=== PATIENT | female | born 1950 | race Caucasian/White ===

== ENCOUNTER → 2018-04-19 08:06 | Outpatient (CLI) | payer MEDICARE, OTHER, SELFPAY ==
--- NOTE | 2018-04-19 | DI.MG.S_ITS ---
BILATERAL DIGITAL SCREENING MAMMOGRAM 3D/2D WITH CAD: 04/19/2018 CLINICAL: Routine screening. Comparison is made to exams dated: 04/10/2017 mammogram, 04/01/2016 mammogram, and 03/31/2015 mammogram - [facility]. There are scattered fibroglandular elements in both breasts. Current study was also evaluated with a Computer Aided Detection (CAD) system. No significant masses, calcifications, or other findings are seen in either breast. There has been no significant interval change. IMPRESSION: NEGATIVE There is no mammographic evidence of malignancy. A 1 year screening mammogram is recommended. This exam was interpreted at Station ID: [id number]. NOTE: For mammograms, a report in lay terms will be sent to the patient. Approximately 15% of breast malignancies will not be visualized mammographically. In the management of a palpable breast mass, a negative mammogram must not discourage biopsy of a clinically suspicious lesion. Electronically Signed By: Pipo ho/mary:04/19/2018 10:27:58 letter sent: Normal Exam ACR BI-RADS Category 1: Negative 3341F
== END ==
PROVIDERS: PCP Physician Assistant; Visit Provider Physician Assistant
DX: Z12.31 Encounter for screening mammogram for malignant neoplasm of breast (principal)
CPT/HCPCS: 77063; 77067

== ENCOUNTER → 2018-04-20 07:29 | Outpatient (CLI) | payer MEDICARE, OTHER, SELFPAY ==
[2018-04-20 09:44] LABS: Creatinine Urine Random 147.3 mg/dL
[2018-04-20 09:49] LABS: Microalbumin Urine Random 1.4 mg/dL (0-1.6)
[2018-04-20 10:00] LABS: Alanine Aminotransferase 74 IU/L (9-52); Albumin 4.5 g/dL (3.5-5.0); Albumin Globulin Ratio 1.5 (1.0-2.8); Alkaline Phosphatase 48 U/L (38-126); Aspartate Aminotransferase 71 IU/L (14-36); BUN Creatinine Ratio 24.3 (6-22); Bilirubin Total 0.6 mg/dL (0.2-1.3); Blood Urea Nitrogen 17 mg/dL (7-17); Calcium 9.7 mg/dL (8.4-10.2); Carbon Dioxide 26 mmol/L (22-32); Chloride 103 mmol/L (98-107); Cholesterol 220 mg/dL (140-199); Estimated Glomerular Filt Rate > 60.0 mL/min (>60); Glucose 114 mg/dL (80-110); HDL Cholesterol 40 mg/dL (40-60); HEMOLYSIS < 15 (0-50); LDL Cholesterol Calculated 142 mg/dL (<100); Potassium 4.2 mmol/L (3.4-5.1); Sodium 142 mmol/L (137-145); Total Protein 7.5 g/dL (6.3-8.2); Triglycerides 188 mg/dL (35-150)
[2018-04-20 10:11] LABS: Free T4, Direct Thyroxine 1.09 ng/dL (0.78-2.19)
[2018-04-20 10:25] LABS: Thyroid Stimulating Hormone 2.17 uIU/mL (0.47-4.68)
[2018-04-20 11:37] LABS: Microalbumi Creatinin Ratio Ur 9.5 ug/mg CR (<30)
== END ==
PROVIDERS: PCP Physician Assistant; Visit Provider Physician Assistant
DX: E03.9 Hypothyroidism, unspecified (principal); E78.5 Hyperlipidemia, unspecified; I10 Essential (primary) hypertension
CPT/HCPCS: 36415; 80053; 80061; 82043; 82570; 84439; 84443

== ENCOUNTER → 2018-05-24 07:29 | Outpatient (CLI) | payer MEDICARE, OTHER, SELFPAY ==
[2018-05-24 08:27] LABS: BUN Creatinine Ratio 27.1 (6-22); Blood Urea Nitrogen 19 mg/dL (7-17); Calcium 9.8 mg/dL (8.4-10.2); Carbon Dioxide 28 mmol/L (22-32); Chloride 103 mmol/L (98-107); Estimated Glomerular Filt Rate > 60.0 mL/min (>60); Glucose 150 mg/dL (80-110); HEMOLYSIS < 15 (0-50); Potassium 3.8 mmol/L (3.4-5.1); Sodium 142 mmol/L (137-145)
== END ==
PROVIDERS: PCP Physician Assistant; Visit Provider Physician Assistant
DX: Z01.818 Encounter for other preprocedural examination (principal); Z12.11 Encounter for screening for malignant neoplasm of colon
CPT/HCPCS: 36415; 80048; 93005

== ENCOUNTER → 2018-06-07 08:20 | Outpatient (CLI) | payer MEDICARE, OTHER, SELFPAY ==
[2018-06-11 14:43] LABS: Fecal Immunochemical Test NOT DETECTED
== END ==
PROVIDERS: PCP Physician Assistant; Visit Provider Physician Assistant
DX: Z12.11 Encounter for screening for malignant neoplasm of colon (principal); Z01.818 Encounter for other preprocedural examination
CPT/HCPCS: 82274

== ENCOUNTER → 2018-08-10 13:27 | Outpatient (CLI) | payer MEDICARE, OTHER, SELFPAY ==
--- NOTE | 2018-08-10 13:30 | DI.RAD.S_ITS ---
PROCEDURE: XR SACRUM COCCYX MIN 2V INDICATIONS: pain from fall TECHNIQUE: 3 views of the sacrum and coccyx acquired. COMPARISON: [facility], , PELVIC COMPLETE, 12/16/2015, 7:18. FINDINGS: Bones: No fractures or dislocations. No suspicious bony lesions. Soft tissues: Visualized bowel gas pattern is normal. No suspicious soft tissue densities are seen peripherally but overlying the pelvis centered to the left of midline there is a region of amorphous calcifications, potentially within a uterine fibroid.. IMPRESSION: No trauma found. Amorphous calcifications are clustered just to the left of midline at the lobe pelvis on the frontal projection, potentially calcifications within a uterine fibroid in this area. Noncontrast CT scanning could differentiate between fibroid calcification, bladder lesion, or adjacent soft tissue abnormality with internal calcifications. A prior pelvic ultrasound from November 2015 does not describe a uterine fibroid with internal calcifications. Dictated by: Masood Ko M.D. on 08/10/2018 at 14:06 Approved by: Masood Ko M.D. on 08/10/2018 at 14:09
--- NOTE | 2018-08-10 13:30 | DI.RAD.S_ITS ---
PROCEDURE: XR ANKLE LT MIN 3V INDICATIONS: pain in left ankle from fall TECHNIQUE: 3 views of the ankle were acquired. COMPARISON: None. FINDINGS: Bones: No fractures or dislocations. Ankle mortise is normally aligned. No suspicious bony lesions. Soft tissues: No tibiotalar joint effusion. Achilles tendon appears normal. IMPRESSION: No trauma found. Dictated by: Masood Ko M.D. on 08/10/2018 at 14:09 Approved by: Masood Ko M.D. on 08/10/2018 at 14:10
== END ==
PROVIDERS: PCP Physician Assistant; Visit Provider Nurse Practitioner Family
DX: M25.572 Pain in left ankle and joints of left foot (principal); M53.3 Sacrococcygeal disorders, not elsewhere classified
CPT/HCPCS: 72220; 73610

== ENCOUNTER → 2018-08-22 14:59 | Outpatient (CLI) | payer MEDICARE, OTHER, SELFPAY | PROVIDERS: PCP Physician Assistant; Visit Provider Surgery | DX: L02.213 Cutaneous abscess of chest wall (principal) | CPT/HCPCS: 87070; 87075; 87205 ==

== ENCOUNTER → 2018-12-14 07:34 | Outpatient (CLI) | payer MEDICARE, OTHER, SELFPAY ==
[2018-12-14 08:19] LABS: Hemoglobin A1C% w Est Avg Glu 6.1 % (4.0-6.0)
[2018-12-14 08:53] LABS: Alanine Aminotransferase 77 IU/L (9-52); Albumin 4.6 g/dL (3.5-5.0); Albumin Globulin Ratio 1.5 (1.0-2.8); Alkaline Phosphatase 51 U/L (38-126); Aspartate Aminotransferase 74 IU/L (14-36); BUN Creatinine Ratio 25.7 (6-22); Bilirubin Total 0.8 mg/dL (0.2-1.3); Blood Urea Nitrogen 18 mg/dL (7-17); Calcium 9.7 mg/dL (8.4-10.2); Carbon Dioxide 26 mmol/L (22-32); Chloride 101 mmol/L (98-107); Cholesterol 220 mg/dL (140-199); Estimated Glomerular Filt Rate > 60.0 mL/min (>60); Globulin 3.1 g/dL (1.7-4.1); Glucose 118 mg/dL (80-110); HDL Cholesterol 36 mg/dL (40-60); HEMOLYSIS < 15 (0-50); LDL Cholesterol Calculated 146 mg/dL (<100); Potassium 3.8 mmol/L (3.4-5.1); Sodium 139 mmol/L (137-145); Total Protein 7.7 g/dL (6.3-8.2); Triglycerides 188 mg/dL (35-150)
[2018-12-14 09:19] LABS: Thyroid Stimulating Hormone 2.21 uIU/mL (0.47-4.68)
[2018-12-14 09:58] LABS: Creatinine Urine Random 160.8 mg/dL
[2018-12-14 10:02] LABS: Microalbumi Creatinin Ratio Ur 9.3 ug/mg CR (<30); Microalbumin Urine Random 1.5 mg/dL (0-1.6)
== END ==
PROVIDERS: PCP Physician Assistant; Visit Provider Physician Assistant
DX: E03.9 Hypothyroidism, unspecified (principal); E78.5 Hyperlipidemia, unspecified; I10 Essential (primary) hypertension; R73.01 Impaired fasting glucose
CPT/HCPCS: 36415; 80053; 80061; 82043; 82570; 83036; 84443

== ENCOUNTER → 2019-04-29 09:40 | Outpatient (CLI) | payer MEDICARE, OTHER, SELFPAY ==
--- NOTE | 2019-04-29 | DI.MG.S_ITS ---
BILATERAL DIGITAL SCREENING MAMMOGRAM 3D/2D WITH CAD: 04/29/2019 CLINICAL: Routine screening. Comparison is made to exams dated: 04/19/2018 mammogram, 04/10/2017 mammogram, and 04/01/2016 mammogram - [facility]. There are scattered fibroglandular elements in both breasts. Current study was also evaluated with a Computer Aided Detection (CAD) system. There are stable benign calcifications in both breasts. No significant masses, calcifications, or other findings are seen in either breast. There has been no significant interval change. IMPRESSION: There is no mammographic evidence of malignancy. A 1 year screening mammogram is recommended. This exam was interpreted at Station ID: [id number]. NOTE: For mammograms, a report in lay terms will be sent to the patient. Approximately 15% of breast malignancies will not be visualized mammographically. In the management of a palpable breast mass, a negative mammogram must not discourage biopsy of a clinically suspicious lesion. Electronically Signed By: Mykel silva/mary:04/29/2019 16:27:29 letter sent: Normal Exam ACR BI-RADS Category 2: Benign Finding(s) 3342F
== END ==
PROVIDERS: PCP Physician Assistant; Visit Provider Physician Assistant
DX: Z12.31 Encounter for screening mammogram for malignant neoplasm of breast (principal)
CPT/HCPCS: 77063; 77067

== ENCOUNTER → 2019-05-16 07:17 | Outpatient (CLI) | payer MEDICARE, OTHER, SELFPAY ==
[2019-05-16 08:38] LABS: Creatinine Urine Random 192.1 mg/dL
[2019-05-16 08:42] LABS: Microalbumin Urine Random 2.7 mg/dL (0-1.6)
[2019-05-16 08:57] LABS: Alanine Aminotransferase 74 IU/L (9-52); Albumin 4.5 g/dL (3.5-5.0); Albumin Globulin Ratio 1.5 (1.0-2.8); Alkaline Phosphatase 55 U/L (38-126); Aspartate Aminotransferase 74 IU/L (14-36); BUN Creatinine Ratio 18.6 (6-22); Bilirubin Total 0.6 mg/dL (0.2-1.3); Blood Urea Nitrogen 13 mg/dL (7-17); Calcium 9.7 mg/dL (8.4-10.2); Carbon Dioxide 27 mmol/L (22-32); Chloride 102 mmol/L (98-107); Cholesterol 218 mg/dL (140-199); Estimated Glomerular Filt Rate > 60.0 mL/min (>60); Glucose 124 mg/dL (80-110); HDL Cholesterol 37 mg/dL (40-60); HEMOLYSIS < 15 (0-50); LDL Cholesterol Calculated 143 mg/dL (<100); Potassium 3.8 mmol/L (3.4-5.1); Sodium 141 mmol/L (137-145); Total Protein 7.5 g/dL (6.3-8.2); Triglycerides 188 mg/dL (35-150)
[2019-05-16 09:57] LABS: Thyroid Stimulating Hormone 2.67 uIU/mL (0.47-4.68)
== END ==
PROVIDERS: PCP Physician Assistant; Visit Provider Physician Assistant
DX: E03.9 Hypothyroidism, unspecified (principal); E78.2 Mixed hyperlipidemia; I10 Essential (primary) hypertension; R73.01 Impaired fasting glucose
CPT/HCPCS: 36415; 80053; 80061; 82043; 82570; 83036; 84443

== ENCOUNTER → 2019-06-06 09:27 | Outpatient (CLI) | payer MEDICARE, OTHER, SELFPAY ==
--- NOTE | 2019-06-06 09:28 | DI.RAD.S_ITS ---
This blank DEXA report has been sent in error by the PACS system. The correct and complete report will be forthcoming in 1-2 days. Thank you for your patience and understanding. Dictated by: Samir Carranza M.D. on 06/06/2019 at 11:43 Approved by: Masood Ko M.D. on 10/08/2019 at 9:36
== END ==
PROVIDERS: PCP Physician Assistant; Visit Provider Physician Assistant
DX: M85.851 Other specified disorders of bone density and structure, right thigh (principal); Z78.0 Asymptomatic menopausal state; E07.9 Disorder of thyroid, unspecified; Z82.62 Family history of osteoporosis
CPT/HCPCS: 77080

== ENCOUNTER → 2019-06-10 09:55 | Outpatient (CLI) | payer MEDICARE, OTHER, SELFPAY ==
[2019-06-12 15:27] LABS: Fecal Immunochemical Test NOT DETECTED (NOT DETECTED)
== END ==
PROVIDERS: PCP Physician Assistant; Visit Provider Physician Assistant
DX: Z12.11 Encounter for screening for malignant neoplasm of colon (principal)
CPT/HCPCS: 82274

== ENCOUNTER → 2019-09-30 07:08 | Outpatient (CLI) | payer MEDICARE, OTHER, SELFPAY ==
[2019-09-30 08:25] LABS: Alanine Aminotransferase 69 IU/L (<35); Albumin 4.7 g/dL (3.5-5.0); Albumin Globulin Ratio 1.6 (1.0-2.8); Alkaline Phosphatase 48 U/L (38-126); Aspartate Aminotransferase 64 IU/L (14-36); Bilirubin Total 0.8 mg/dL (0.2-1.3); Blood Urea Nitrogen 21 mg/dL (7-17); Calcium 10.1 mg/dL (8.4-10.2); Carbon Dioxide 29 mmol/L (22-32); Chloride 101 mmol/L (98-107); Estimated Glomerular Filt Rate > 60.0 mL/min (>60); Globulin 2.9 g/dL (1.7-4.1); Glucose 136 mg/dL (80-110); HEMOLYSIS < 15 (0-50); Potassium 3.7 mmol/L (3.4-5.1); Sodium 139 mmol/L (137-145); Total Protein 7.6 g/dL (6.3-8.2)
[2019-09-30 08:55] LABS: Thyroid Stimulating Hormone 2.42 uIU/mL (0.47-4.68)
[2019-09-30 10:43] LABS: Hemoglobin A1C% w Est Avg Glu 6.1 % (4.0-6.0)
== END ==
PROVIDERS: PCP Physician Assistant; Visit Provider Physician Assistant
DX: E03.9 Hypothyroidism, unspecified (principal); I10 Essential (primary) hypertension; R73.01 Impaired fasting glucose
CPT/HCPCS: 36415; 80053; 83036; 84443

== ENCOUNTER → 2019-11-05 08:17 | Outpatient (CLI) | payer OTHER, SELFPAY ==
[2019-11-05 09:10] LABS: Hemoglobin A1C% w Est Avg Glu 6.2 % (4.0-6.0)
[2019-11-05 09:19] LABS: Alanine Aminotransferase 62 IU/L (<35); Albumin 4.6 g/dL (3.5-5.0); Albumin Globulin Ratio 1.7 (1.0-2.8); Alkaline Phosphatase 55 U/L (38-126); Aspartate Aminotransferase 57 IU/L (14-36); BUN Creatinine Ratio 27.1 (6-22); Bilirubin Total 0.8 mg/dL (0.2-1.3); Blood Urea Nitrogen 19 mg/dL (7-17); Calcium 9.8 mg/dL (8.4-10.2); Carbon Dioxide 27 mmol/L (22-32); Chloride 101 mmol/L (98-107); Cholesterol 190 mg/dL (140-199); Estimated Glomerular Filt Rate > 60.0 mL/min (>60); Globulin 2.7 g/dL (1.7-4.1); Glucose 128 mg/dL (80-110); HDL Cholesterol 33 mg/dL (40-60); HEMOLYSIS < 15 (0-50); LDL Cholesterol Calculated 118 mg/dL (<100); Potassium 3.9 mmol/L (3.4-5.1); Sodium 139 mmol/L (137-145); Total Protein 7.3 g/dL (6.3-8.2); Triglycerides 196 mg/dL (35-150)
[2019-11-05 09:53] LABS: Vitamin D 25 Hydroxy (D3) 47.4 ng/mL (30.0-100.0)
[2019-11-05 10:08] LABS: Thyroid Stimulating Hormone 1.75 uIU/mL (0.47-4.68)
[2019-11-05 10:30] LABS: Creatinine Urine Random 113.1 mg/dL
[2019-11-05 10:33] LABS: Microalbumi Creatinin Ratio Ur 9.7 ug/mg CR (<30); Microalbumin Urine Random 1.1 mg/dL (0-1.6)
== END ==
PROVIDERS: PCP Physician Assistant; Visit Provider Physician Assistant
DX: E03.9 Hypothyroidism, unspecified (principal); E78.5 Hyperlipidemia, unspecified; I10 Essential (primary) hypertension; M81.0 Age-related osteoporosis without current pathological fracture; R73.03 Prediabetes
CPT/HCPCS: 36415; 80053; 80061; 82043; 82306; 82570; 83036; 84443

== ENCOUNTER → 2020-05-19 08:04 | Outpatient (CLI) | payer OTHER, SELFPAY ==
[2020-05-19 09:22] LABS: Cholesterol 205 mg/dL (140-199); HDL Cholesterol 36 mg/dL (40-60); LDL Cholesterol Calculated 132 mg/dL (<100); Triglycerides 186 mg/dL (35-150)
== END ==
PROVIDERS: Physician Assistant; PCP Family Medicine; Referring Provider Family Medicine; Visit Provider Family Medicine
DX: E78.5 Hyperlipidemia, unspecified (principal)
CPT/HCPCS: 36415; 80061

== ENCOUNTER → 2020-05-27 08:06 | Outpatient (CLI) | payer OTHER, SELFPAY ==
[2020-05-27 08:25] LABS: Add Manual Diff / Slide Review NO; Basophils Absolute Auto 100 /uL (0-100); Basophils Percent Auto 0.9 % (0-2); Eosinophils Absolute Auto 200 /uL (0-450); Eosinophils Percent Auto 2.3 % (2-4); Hematocrit 41.5 % (36-46); Lymphocytes Absolute Auto 2100 /uL (1100-4500); Lymphocytes Percent Auto 29.9 % (25-40); Mean Corpuscular HGB Conc 33.8 % (30-36); Mean Corpuscular Hemoglobin 30.4 PG (26-34); Mean Corpuscular Volume 89.9 fL (80-100); Monocytes Absolute Auto 500 /uL (0-900); Monocytes Percent Auto 6.5 % (3-14); Neutrophils Absolute Auto 4200 /uL (1500-7000); Neutrophils Percent Auto 60.4 % (50-75); Platelet Count 281 X10^3/uL (150-400); Red Blood Cell Count 4.61 X10^6/uL (4.0-5.2); Red Cell Distribution Width 12.9 % (11.6-14.8)
[2020-05-27 08:35] LABS: Hemoglobin A1C% w Est Avg Glu 6.5 % (4.0-6.0)
[2020-05-27 09:19] LABS: Free T4, Direct Thyroxine 1.11 ng/dL (0.78-2.19)
== END ==
PROVIDERS: PCP Family Medicine; Referring Provider Family Medicine; Visit Provider Family Medicine
DX: R73.03 Prediabetes (principal)
CPT/HCPCS: 36415; 83036; 84439; 84443; 85025

== ENCOUNTER → 2020-06-17 08:17 | Outpatient (CLI) | payer OTHER, SELFPAY ==
--- NOTE | 2020-06-17 | DI.MG.S_ITS ---
BILATERAL DIGITAL SCREENING MAMMOGRAM 3D/2D WITH CAD: 06/17/2020 CLINICAL: Routine screening. Comparison is made to exams dated: 04/29/2019 mammogram, 04/19/2018 mammogram, and 04/10/2017 mammogram - [facility]. There are scattered fibroglandular elements in both breasts. Current study was also evaluated with a Computer Aided Detection (CAD) system. There are stable benign calcifications in both breasts. No significant masses, calcifications, or other findings are seen in either breast. There has been no significant interval change. IMPRESSION: There is no mammographic evidence of malignancy. A 1 year screening mammogram is recommended. This exam was interpreted at Station ID: [id number]. NOTE: For mammograms, a report in lay terms will be sent to the patient. Approximately 15% of breast malignancies will not be visualized mammographically. In the management of a palpable breast mass, a negative mammogram must not discourage biopsy of a clinically suspicious lesion. Electronically Signed By: Von Sharp M.D., jr/mary:06/17/2020 10:22:26 letter sent: Normal Exam ACR BI-RADS Category 2: Benign Finding(s) 3342F
[2020-06-17 10:05] LABS: Alanine Aminotransferase 57 IU/L (<35); Albumin 4.8 g/dL (3.5-5.0); Albumin Globulin Ratio 1.5 (1.0-2.8); Alkaline Phosphatase 56 U/L (38-126); Aspartate Aminotransferase 63 IU/L (14-36); BUN Creatinine Ratio 33.3 (6-22); Bilirubin Total 0.7 mg/dL (0.2-1.3); Blood Urea Nitrogen 21 mg/dL (7-17); Carbon Dioxide 27 mmol/L (22-32); Chloride 98 mmol/L (98-107); Estimated Glomerular Filt Rate > 60.0 mL/min (>60); Globulin 3.1 g/dL (1.7-4.1); Glucose 156 mg/dL (80-110); HEMOLYSIS 45 (0-50); Magnesium 2.1 mg/dL (1.6-2.3); Potassium 3.9 mmol/L (3.4-5.1); Sodium 136 mmol/L (137-145); Total Protein 7.9 g/dL (6.3-8.2)
== END ==
PROVIDERS: Internal Medicine Cardiovascular Disease; PCP Family Medicine; Referring Provider Family Medicine; Visit Provider Family Medicine
DX: Z12.31 Encounter for screening mammogram for malignant neoplasm of breast (principal); I10 Essential (primary) hypertension; I49.1 Atrial premature depolarization
CPT/HCPCS: 36415; 77063; 77067; 80053; 83735

== ENCOUNTER → 2020-06-19 15:52 | Outpatient (CLI) | payer OTHER, SELFPAY ==
--- NOTE | 2020-06-19 15:55 | DI.ECHO.S_ITS ---
[facility] +---------+ : : [address] : : : : [id number] : : : : Phone: [phone]---------+ Echocardiogram Report + + :Name: MAKSIM NGUYEN Study Date: 06/19/2020 Height: 64 in : :[facility] Location: [place] Weight: 173 lb : : Gender: Female BSA: 1.8 m2 : :: 1950 Age: 69 yrs BP: 133/80 mmHg: :Reason For Study: Mitral Valve - Annulus Repair/Replacement : :Ordering Physician: Adali : :Sophia Ferraro Performed By: Maksim Page : :Referring: ADALI FERRARO : + + Interpretation Summary The left ventricle is normal in size. The ejection fraction is estimated to be 60-65%. The right ventricle is normal in size and function. The posterior mitral valve leaflet is thickened and fixed consistent with prior mitral repair.MV mean P.4 mmHg No significant mitral valve stenosis. There is trace mitral regurgitation. The IVC is of normal diameter and collapses greater than 50% with a sniff. This suggests a low right atrial pressure of 3 mm Hg. Procedure: A two-dimensional transthoracic echocardiogram with color flow and Doppler was performed. The study quality was technically adequate. Comparison is made with the echocardiogram of 01/26/2015. The patient was in normal sinus rhythm during the exam. Left Ventricle: The left ventricle is normal in size. Proximal septal thickening is noted. There is no echo evidence for significant left ventricular outflow tract obstruction. There is no thrombus. The ejection fraction is estimated to be 60-65%. Septal motion is consistent with post- operative state. Diastolic function could not be accurately assessed due to confounding valvular disease. Right Ventricle: The right ventricle is normal in size and function. Atria: The left atrium is moderately dilated. Right atrial size is normal. There is no Doppler evidence for an interatrial shunt. Mitral Valve: The mitral valve chordae are thickened and/or calcified. The posterior mitral valve leaflet is thickened and fixed consistent with prior mitral repair. No significant mitral valve stenosis. There is trace mitral regurgitation. Aortic Valve: The aortic valve is trileaflet. The aortic valve opens well. The aortic valve is slightly calcified. There is no aortic valve stenosis. No aortic regurgitation is present. Tricuspid Valve: The tricuspid valve is normal in structure and function. The right ventricular systolic pressure is estimated to be at least 28 mmHg based on an estimated right atrial pressure of 3 mm Hg. There is trace tricuspid regurgitation. Pulmonic Valve: The pulmonic valve is not well visualized. Great Vessels: The aortic root is normal size. The ascending aorta is normal in size. The pulmonary is not well visualized. The IVC is of normal diameter and collapses greater than 50% with a sniff. This suggests a low right atrial pressure of 3 mm Hg. Pericardium/ Pleura There is no pericardial effusion. There is no pleural effusion. MMode/2D Measurements & Calculations LVIDd: 4.3 cm LVOT diam: 2.0 cm LVIDs: 2.6 cm Ao root diam: 3.3 cm FS: 39.9 % asc Aorta Diam: 3.3 cm IVSd: 1.0 cm LVPWd: 0.70 cm LV banegas. diameter/BSA (cm/m^2): 2.4 LV sys. diameter/BSA (cm/m^2): 1.4 LA A2 area: 25.3 cm2 RA long axis: 4.2 cm LA A4 area: 20.7 cm2 RA area: 12.1 cm2 LA length (vol): 5.6 cm RA vol: 29.6 ml LA vol: 79.2 ml RA : 16.1 ml/m2 LA vol index: 43.1 ml/m2 RVD1 (basal): 3.0 cm Doppler Measurements & Calculations Ao V2 max: 128.2 cm/sec LVOT Max Neville: 87.0 cm/sec Ao V2 mean: 90.6 cm/sec LV V1 max P.0 mmHg Ao max P.6 mmHg LV V1 VTI: 17.1 cm Ao mean P.5 mmHg ARIA(I,D): 2.3 cm2 Ao V2 VTI: 23.8 cm ARIA(V,D): 2.1 cm2 sev ratio: 0.72 ARIA indexed to BSA (cm^2/m^2): 1.2 Lat Peak E' Neville: 13.0 cm/sec TR max neville: 250.5 cm/sec MVA(VTI): 1.2 cm2 TR max P.1 mmHg PA V2 max: 86.3 cm/sec PA V2 mean: 64.9 cm/sec PA mean P.8 mmHg MV V2 mean: 84.4 cm/sec SV(LVOT): 54.1 ml MV mean P.4 mmHg MV V2 VTI: 44.2 cm Reading Physician:01:35 PM
== END ==
PROVIDERS: PCP Family Medicine; Referring Provider Internal Medicine Cardiovascular Disease; Visit Provider Internal Medicine Cardiovascular Disease
DX: I49.1 Atrial premature depolarization (principal); Z98.890 Other specified postprocedural states
CPT/HCPCS: 93306

== ENCOUNTER → 2020-09-24 07:43 | Outpatient (CLI) | payer OTHER, SELFPAY ==
[2020-09-24 08:43] LABS: Hemoglobin A1C% w Est Avg Glu 6.7 % (4.0-6.0)
[2020-09-24 08:46] LABS: Alanine Aminotransferase 42 IU/L (<35); Albumin 4.5 g/dL (3.5-5.0); Albumin Globulin Ratio 1.5 (1.0-2.8); Alkaline Phosphatase 47 U/L (38-126); Aspartate Aminotransferase 51 IU/L (14-36); BUN Creatinine Ratio 30.7 (6-22); Bilirubin Total 0.8 mg/dL (0.2-1.3); Blood Urea Nitrogen 23 mg/dL (7-17); Calcium 10.1 mg/dL (8.4-10.2); Carbon Dioxide 28 mmol/L (22-32); Chloride 101 mmol/L (98-107); Cholesterol 232 mg/dL (140-199); Estimated Glomerular Filt Rate > 60.0 mL/min (>60); Glucose 130 mg/dL (80-110); HDL Cholesterol 38 mg/dL (40-60); HEMOLYSIS < 15 (0-50); LDL Cholesterol Calculated 139 mg/dL (<100); Potassium 4.3 mmol/L (3.4-5.1); Sodium 136 mmol/L (137-145); Total Protein 7.5 g/dL (6.3-8.2); Triglycerides 276 mg/dL (35-150)
[2020-09-24 09:01] LABS: Creatinine Urine Random 106.4 mg/dL
[2020-09-24 09:03] LABS: Free T4, Direct Thyroxine 1.67 ng/dL (0.78-2.19)
[2020-09-24 09:05] LABS: Microalbumi Creatinin Ratio Ur 5.6 ug/mg CR (<30); Microalbumin Urine Random 0.6 mg/dL (0-1.6)
== END ==
PROVIDERS: PCP Family Medicine; Referring Provider Family Medicine; Visit Provider Family Medicine
DX: E78.2 Mixed hyperlipidemia (principal); I10 Essential (primary) hypertension; R73.03 Prediabetes; R73.09 Other abnormal glucose; R79.89 Other specified abnormal findings of blood chemistry; E03.9 Hypothyroidism, unspecified
CPT/HCPCS: 36415; 80053; 80061; 82043; 82570; 83036; 84439; 84443

== ENCOUNTER → 2020-09-28 09:02 | Outpatient (CLI) | payer OTHER, SELFPAY ==
--- NOTE | 2020-09-28 09:03 | DI.RAD.S_ITS ---
PROCEDURE: XR CERVICAL SPINE 2V OR 3V INDICATIONS: Neck and low back pain TECHNIQUE: 3 view(s) of the cervical spine were acquired. COMPARISON: None. FINDINGS: Bones: No fractures or dislocations to the C7 level. The lateral masses of C1 appear intact on the odontoid view. Mild degenerative change including intervertebral disc space narrowing and osteophytosis is present throughout the mid and lower cervical spine. There is loss of the expected cervical lordosis. No suspicious bony lesions. Soft tissues: No prevertebral soft tissue swelling. IMPRESSION: Mild degenerative change. No compression deformities. Dictated by: Mey Camargo M.D. on 09/28/2020 at 10:35 Approved by: Mey Camargo M.D. on 09/28/2020 at 10:35
--- NOTE | 2020-09-28 09:03 | DI.RAD.S_ITS ---
PROCEDURE: XR LUMBAR SPINE 2-3V INDICATIONS: Neck and low back pain TECHNIQUE: 3 views of the lumbar spine were acquired. COMPARISON: None. FINDINGS: Bones: 5 [id number] vertebrae are present. There is normal bony alignment. No vertebral body compression fractures. Anterior syndesmophytes are present at L3-4 and L4-5. There is mild facet sclerosis of the lower lumbar spine. No suspicious bony lesions. Soft tissues: Overlying bowel gas pattern is normal. Mild aortic atheromatous calcifications are noted. IMPRESSION: Mild degenerative change. Aortic atherosclerosis. Dictated by: Mey Camargo M.D. on 09/28/2020 at 10:35 Approved by: Mey Camargo M.D. on 09/28/2020 at 10:36
== END ==
PROVIDERS: PCP Family Medicine; Referring Provider Family Medicine; Visit Provider Family Medicine
DX: G89.29 Other chronic pain (principal); M54.2 Cervicalgia; M54.5 Low back pain; M47.812 Spondylosis without myelopathy or radiculopathy, cervical region; M47.816 Spondylosis without myelopathy or radiculopathy, lumbar region; I70.0 Atherosclerosis of aorta
CPT/HCPCS: 72040; 72100

== ENCOUNTER → 2020-12-18 07:23 | Outpatient (CLI) | payer OTHER, SELFPAY ==
[2020-12-18 09:07] LABS: Hemoglobin A1C% w Est Avg Glu 6.3 % (4.0-6.0)
[2020-12-18 09:20] LABS: Alanine Aminotransferase 54 IU/L (<35); Albumin 4.8 g/dL (3.5-5.0); Albumin Globulin Ratio 1.6 (1.0-2.8); Alkaline Phosphatase 51 U/L (38-126); Aspartate Aminotransferase 58 IU/L (14-36); BUN Creatinine Ratio 31.5 (6-22); Bilirubin Total 0.5 mg/dL (0.2-1.3); Blood Urea Nitrogen 23 mg/dL (7-17); Calcium 10.1 mg/dL (8.4-10.2); Carbon Dioxide 26 mmol/L (22-32); Chloride 100 mmol/L (98-107); Estimated Glomerular Filt Rate > 60.0 mL/min (>60); Glucose 126 mg/dL (80-110); HEMOLYSIS < 15 (0-50); Potassium 3.8 mmol/L (3.4-5.1); Sodium 136 mmol/L (137-145); Total Protein 7.8 g/dL (6.3-8.2)
[2020-12-18 09:38] LABS: Creatinine Urine Random 115.8 mg/dL
[2020-12-18 09:45] LABS: Microalbumin Urine Random 0.7 mg/dL (0-1.6)
[2020-12-18 09:53] LABS: Free T4, Direct Thyroxine 1.84 ng/dL (0.78-2.19)
[2020-12-18 10:07] LABS: Thyroid Stimulating Hormone 1.64 uIU/mL (0.47-4.68)
== END ==
PROVIDERS: PCP Family Medicine; Referring Provider Family Medicine; Visit Provider Family Medicine
DX: E03.9 Hypothyroidism, unspecified (principal); E11.9 Type 2 diabetes mellitus without complications; E78.2 Mixed hyperlipidemia; I10 Essential (primary) hypertension; R79.89 Other specified abnormal findings of blood chemistry
CPT/HCPCS: 36415; 80053; 82043; 82570; 83036; 84439; 84443

== ENCOUNTER → 2020-12-24 10:52 | Outpatient (CLI) | payer OTHER, SELFPAY ==
--- NOTE | 2020-12-24 13:29 | DIET.PN ---
Diabetes Intake: Initial Assessment Assess: Ms. Robledo is 70 yof referred for newly diagnosed type 2 diabetes. She has a hx significant for open heart surgery x 6yrs ago. Since diagnosis, she has made some dietary changes and has been keeping a food and glucose record. She recently started metformin 500mg BID. She and her walk on their treadmills 30 min 4-5d/wk. Labs: Per pt report: A1c: 6.7 -> 6.3 Meds: metformin 500mg BID Diet: per 24 hr recall: B: German muffin or bagel w/ cr chz L: ? sandwich w/ vegetables D: pro, veg, starch Sn: popcorn, fruit Wt: 170lb Ht: 64in BMI: 29.2 BP: 142/84 DX: Altered nutrition related laboratory values related to impaired glucose metabolism, lack of previous exposure to nutrition information as evidenced by pt report, diagnosis of diabetes, previous diet high in refined carbohydrates. Intervention: 1. Completed intake assessment. Discussed barriers to care. 2. Discussed pathophysiology of diabetes. Reviewed A1c and its correlation to blood glucose numbers. Discussed recommended BG ranges. 3. Discussed importance of self-monitoring, how often, and when to check. 4. Reviewed hyper/hypoglycemia and treatment. 5. Reviewed safe disposal of equipment (strip/lancets/insulin needles). 6. Created SMART goals for pt self-care and success. 7. Discussed program curriculum outline and class needs based on individual goals. SMART Goals: 1. Goal weight of 155lb in the next 3 mo through learning carb counting, portion control, and regular exercise. Monitor/Evaluate: Pt will attend full DSME program. Basic Nutrition class scheduled for Dec 29.
== END ==
PROVIDERS: PCP Family Medicine; Referring Provider Family Medicine; Visit Provider Family Medicine
DX: E11.9 Type 2 diabetes mellitus without complications (principal); Z79.84 Long term (current) use of oral hypoglycemic drugs; Z71.3 Dietary counseling and surveillance; Z87.74 Personal history of (corrected) congenital malformations of heart and circulatory system
CPT/HCPCS: G0108

== ENCOUNTER → 2020-12-29 09:45 | Outpatient (CLI) | payer OTHER, SELFPAY ==
--- NOTE | 2020-12-29 11:31 | DIET.PN ---
Diabetes: Healthy Eating 1 Intervention: ? Discussed pathophysiology of diabetes and impact of nutrition/diet on blood sugar control.? Discussed fed versus non-fed state.?? ? Reviewed importance of Balance, Variety, and Moderation. ? Discussed the effect of carbohydrates/protein/fat on blood sugar control.? ? Stressed importance of consistent carbohydrate intake at each meal and provided instructions for recommended servings/portions of carbohydrates/protein per meal. Provided educational material. ? Reviewed carbohydrate counting and measuring carbohydrate content via serving sizes and reading nutrition labels.? Provided handouts.?? ? Discussed the difference between simple versus complex carbohydrates and the effect of fiber on blood sugar control.? Discussed various methods to increase fiber content in diet. ? Discussed the plate method for creating more carbohydrate conscious balanced meals. ? Stressed importance of meal timing and not going >4-5 hours between meals. Encouraged adding protein to evening snack to support glucose control overnight. ? Discussed importance of making dietary habits part of lifestyle change.
== END ==
PROVIDERS: PCP Family Medicine; Referring Provider Family Medicine; Visit Provider Family Medicine
DX: E11.9 Type 2 diabetes mellitus without complications (principal); Z71.3 Dietary counseling and surveillance
CPT/HCPCS: G0109

== ENCOUNTER → 2021-01-05 09:55 | Outpatient (CLI) | payer OTHER, SELFPAY ==
--- NOTE | 2021-01-05 11:57 | DIET.PN ---
Diabetes: Healthy Eating 2 Intervention: Fats effects on glucose, weight, heart disease, cholesterol Sat Vs Unsat Protein- animal and plant based options Low, med, high fat meats Sugar substitutes Sodium Health claims Grocery shopping guidelines Eating away from home Alcohol Sick day guidelines Ketone Testing
== END ==
PROVIDERS: PCP Family Medicine; Referring Provider Family Medicine; Visit Provider Family Medicine
DX: E11.9 Type 2 diabetes mellitus without complications (principal); Z71.3 Dietary counseling and surveillance
CPT/HCPCS: G0109

== ENCOUNTER → 2021-01-12 09:46 | Outpatient (CLI) | payer OTHER, SELFPAY ==
--- NOTE | 2021-01-12 15:46 | DIET.PN ---
Diabetes Physiology and Medications: Intervention 1. Diabetes physiology 2. Detecting and treatment of acute and chronic complications 3. Diagnosis of and difference in types of diabetes 4. Self-monitoring and pattern management a. Demonstrate glucometer and control testing b. Explain BG results and action to take when out of range. 5. Foot , eye, dental care 6. Medications a. Oral medication classification b. Injectable c. Insulin i. Injection protocol ii. Other delivery methods
== END ==
PROVIDERS: PCP Family Medicine; Referring Provider Family Medicine; Visit Provider Family Medicine
DX: E11.9 Type 2 diabetes mellitus without complications (principal); Z71.3 Dietary counseling and surveillance
CPT/HCPCS: G0109

== ENCOUNTER → 2021-01-19 09:47 | Outpatient (CLI) | payer OTHER, SELFPAY ==
--- NOTE | 2021-01-19 16:11 | DIET.PN ---
Diabetes Exercise/Lifestyle change: 1. Importance of exercise 2. FITT (frequency, intensity, time, type) 3. Strength training tips and guidelines 4. Glucose monitoring/ranges before and after a. Carbohydrate needs based on glucose ranges and duration/intensity of exercise b. Rule of 15 5. Proper foot attire 6. Developing strategies for behavior change 7. SMART Goal Setting 8. Home exercise routine demonstration (as a class)
== END ==
PROVIDERS: PCP Family Medicine; Referring Provider Family Medicine; Visit Provider Family Medicine
DX: E11.9 Type 2 diabetes mellitus without complications (principal); Z71.3 Dietary counseling and surveillance
CPT/HCPCS: G0109

== ENCOUNTER → 2021-01-28 09:50 | Outpatient (CLI) | payer OTHER, SELFPAY ==
--- NOTE | 2021-01-28 10:38 | DIET.PN ---
DIABETES Nutrition Initial Assessment:? ASSESS:?? Ms. Robledo is a 70 yom??referred for type 2 diabetes seen as part of DSME program. She has maintained excellent glucose control through improved dietary habits, meal prep, planned snacks between meals, and continued exercise. She has been keeping a food and glucose log. ??? LABS: Per pt report:? A1c: 6.3 ? MEDS:?? metformin 500mg BID Eating Out: rarely Changes in Appetite: none Nutrition Supplements: multivit ? Weight: 165 lb (-5lb) Height: 64in BMI: ? 28.3 ? 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 Altered Nutrition related labs related to impaired glucose metabolism, lack of previous exposure to accurate nutrition information as evidenced by pt report, dx of diabetes, previous diet high in refined carbohydrates.? INTERVENTION(s): 1. Reviewed pathophysiology of diabetes and impact of nutrition/diet on blood sugar control.? Discussed fed versus non-fed state.?? 2. Discussed the effect of carbohydrates/protein/fat on blood sugar control.? Stressed importance of consistent carbohydrate intake at each meal and provided instructions for recommended servings/portions of carbohydrates/protein per meal. Provided pt with educational material. 3. Reviewed carbohydrate counting and measuring carbohydrate content via serving sizes and reading nutrition labels.? Provided handouts.?? 4. Discussed the difference between simple versus complex carbohydrates and the effect of fiber on blood sugar control.? Discussed various methods to increase fiber content in diet. 5. Stressed importance of meal timing and not going >4-5 hours between meals. Encouraged adding protein to evening snack to support glucose control overnight. Patient agreeable. 6. Discussed healthy weight loss goals of 1-2lbs per week through diet and exercise.? Pt agreeable to walking at least 30 minutes daily. 7. Recommend monitoring fasting and alternating 2 hr PP mealtime glucose. MONITOR/EVALUATE: Anticipate good compliance.? F/U after new labs.
[2021-01-28 10:39] VITALS: BMI 28.2
== END ==
PROVIDERS: PCP Family Medicine; Referring Provider Family Medicine; Visit Provider Family Medicine
DX: E11.9 Type 2 diabetes mellitus without complications (principal)
CPT/HCPCS: G0109

== ENCOUNTER → 2021-06-18 08:17 | Outpatient (CLI) | payer OTHER, SELFPAY ==
--- NOTE | 2021-06-18 | DI.MG.S_ITS ---
BILATERAL DIGITAL SCREENING MAMMOGRAM 3D/2D WITH CAD: 06/18/2021 CLINICAL: Routine screening. Comparison is made to exams dated: 06/17/2020 mammogram, 04/29/2019 mammogram, 04/19/2018 mammogram, and 04/10/2017 mammogram - [facility]. There are scattered fibroglandular elements in both breasts. Current study was also evaluated with a Computer Aided Detection (CAD) system. There are benign calcifications in both breasts. No significant masses, calcifications, or other findings are seen in either breast. There has been no significant interval change. IMPRESSION: BENIGN There is no mammographic evidence of malignancy. A 1 year screening mammogram is recommended. This exam was interpreted at Station ID: [id number]. NOTE: For mammograms, a report in lay terms will be sent to the patient. Approximately 15% of breast malignancies will not be visualized mammographically. In the management of a palpable breast mass, a negative mammogram must not discourage biopsy of a clinically suspicious lesion. Electronically Signed By: Zachariah sood/mary:06/18/2021 14:33:35 letter sent: Normal Exam ACR BI-RADS Category 2: Benign Finding(s) 3342F
== END ==
PROVIDERS: PCP Family Medicine; Referring Provider Family Medicine; Visit Provider Family Medicine
DX: Z12.31 Encounter for screening mammogram for malignant neoplasm of breast (principal)
CPT/HCPCS: 77063; 77067

== ENCOUNTER → 2021-07-27 07:51 | Outpatient (CLI) | payer OTHER, SELFPAY ==
[2021-07-27 08:53] LABS: Hemoglobin A1C% w Est Avg Glu 5.5 % (4.0-6.0)
[2021-07-27 09:04] LABS: Alanine Aminotransferase 21 IU/L (<35); Albumin 4.6 g/dL (3.5-5.0); Albumin Globulin Ratio 1.8 (1.0-2.8); Alkaline Phosphatase 44 U/L (38-126); Aspartate Aminotransferase 32 IU/L (14-36); BUN Creatinine Ratio 28.6 (6-22); Bilirubin Total 0.5 mg/dL (0.2-1.3); Blood Urea Nitrogen 18 mg/dL (7-17); Calcium 10.1 mg/dL (8.4-10.2); Carbon Dioxide 27 mmol/L (22-32); Chloride 104 mmol/L (98-107); Estimated Glomerular Filt Rate > 60.0 mL/min (>60); Globulin 2.5 g/dL (1.7-4.1); Glucose 103 mg/dL (80-110); HEMOLYSIS 25 (0-50); Potassium 4.3 mmol/L (3.4-5.1); Sodium 140 mmol/L (137-145); Total Protein 7.1 g/dL (6.3-8.2)
[2021-07-27 10:05] LABS: Free T4, Direct Thyroxine 1.22 ng/dL (0.78-2.19)
[2021-07-27 10:19] LABS: Thyroid Stimulating Hormone 1.36 uIU/mL (0.47-4.68)
== END ==
PROVIDERS: PCP Family Medicine; Referring Provider Family Medicine; Visit Provider Family Medicine
DX: E11.9 Type 2 diabetes mellitus without complications (principal); E03.9 Hypothyroidism, unspecified; E78.5 Hyperlipidemia, unspecified
CPT/HCPCS: 36415; 80053; 83036; 84439; 84443

== ENCOUNTER → 2021-07-28 08:02 | Outpatient (CLI) | payer OTHER, SELFPAY ==
--- NOTE | 2021-07-28 08:03 | DI.MRI.S_ITS ---
PROCEDURE: MR CERVICAL SPINE WO CON INDICATIONS: Progressive neck pain with R sided C 5 radiculopathy TECHNIQUE: Noncontrast sagittal T1 spin echo and T2 fast spin echo, sagittal STIR, foraminal oblique sagittal T2 fast spin echo, and axial gradient echo or T2 fast spin echo through the cervical spine. COMPARISON: [facility], CR, XR CERVICAL SPINE 2V OR 3V, 09/28/2020, 9:07. FINDINGS: Image quality: Excellent. Alignment and Curvature: There is normal bony alignment. Bone Marrow: Mild reactive endplate changes noted adjacent to the C5-C6 disc. Spinal Cord: Visualized spinal cord has normal size and signal. No cerebellar tonsillar herniation. Paraspinous Soft Tissues: No paravertebral masses. Prevertebral soft tissues are normal in thickness. C2-C3: Loss of disc signal. No central stenosis. No neural foraminal narrowing. No neural compression. C3-C4: Loss of disc signal. Minimal, diffuse disc bulge. Mild right and severe left facet hypertrophy. Mild narrowing of the central canal. Severe left neural foraminal narrowing with compression of the exiting left C4 nerve root. C4-C5: Loss of disc signal. Mild, diffuse disc bulge. Mild right and severe left facet hypertrophy. Mild right uncovertebral joint hypertrophy. Mild narrowing of the central canal. Moderate right and severe left neural foraminal narrowing with compression of the exiting left C5 nerve root. C5-C6: Loss of disc signal and slight loss of disc height. Moderate, diffuse disc bulge. Small central disc protrusion. Mild bilateral facet hypertrophy. Mild bilateral uncovertebral joint hypertrophy. Severe narrowing of the central canal with compression of the cervical spinal cord. Severe bilateral neural foraminal narrowing with compression of the exiting C6 nerve roots. C6-C7: Loss of disc signal. Mild, diffuse disc bulge. Mild bilateral facet hypertrophy. Mild narrowing of the central canal. Mild bilateral neural foraminal narrowing. No neural compression. C7-T1: Loss of disc signal. No central stenosis. No neural foraminal narrowing. No neural compression. IMPRESSION: 1. Multilevel degenerative disc disease. 2. Multilevel facet and uncovertebral arthropathy. 3. Severe C5-C6 central canal narrowing with compression of the cervical spinal cord. 4. Severe bilateral C5-C6 neural foraminal narrowing with compression of the exiting bilateral C6 nerve roots. Severe left C3-C4 and C4-C5 neural foraminal narrowing with compression of the exiting left C4 and C5 nerve roots. Dictated by: Rosario Manning MD, PhD on 07/28/2021 at 11:57 Approved by: Rosario Manning MD, PhD on 07/28/2021 at 12:02
== END ==
PROVIDERS: PCP Family Medicine; Referring Provider Family Medicine; Visit Provider Family Medicine
DX: M47.22 Other spondylosis with radiculopathy, cervical region (principal); M48.02 Spinal stenosis, cervical region; M50.121 Cervical disc disorder at C4-C5 level with radiculopathy
CPT/HCPCS: 72141

== ENCOUNTER → 2021-07-29 09:05 | Outpatient (CLI) | payer OTHER, SELFPAY ==
[2021-07-30 14:35] LABS: Fecal Immunochemical Test Negative (Negative)
== END ==
PROVIDERS: PCP Family Medicine; Referring Provider Family Medicine; Visit Provider Family Medicine
DX: Z00.00 Encounter for general adult medical examination without abnormal findings (principal)
CPT/HCPCS: 82274

== ENCOUNTER → 2021-08-12 07:51 | Outpatient (CLI) | payer OTHER, SELFPAY ==
[2021-08-12 09:06] LABS: Cholesterol 221 mg/dL (140-199); HDL Cholesterol 53 mg/dL (40-60); LDL Cholesterol Calculated 135 mg/dL (<100); Triglycerides 167 mg/dL (35-150)
== END ==
PROVIDERS: PCP Family Medicine; Referring Provider Family Medicine; Visit Provider Family Medicine
DX: E11.9 Type 2 diabetes mellitus without complications (principal); E78.5 Hyperlipidemia, unspecified; I10 Essential (primary) hypertension
CPT/HCPCS: 36415; 80061

== ENCOUNTER → 2021-11-09 10:01 | Outpatient (CLI) | payer OTHER, SELFPAY ==
[2021-11-09 11:23] LABS: Hemoglobin A1C% w Est Avg Glu 5.7 % (4.0-6.0)
[2021-11-09 11:29] LABS: Add Manual Diff / Slide Review NO; Basophils Absolute Auto 0 /uL (0-100); Basophils Percent Auto 0.5 % (0-2); Eosinophils Absolute Auto 100 /uL (0-450); Eosinophils Percent Auto 1.6 % (2-4); Hematocrit 40.2 % (36-46); Hemoglobin 13.9 g/dL (12.0-16.0); Lymphocytes Absolute Auto 2000 /uL (1100-4500); Lymphocytes Percent Auto 27.5 % (25-40); Mean Corpuscular HGB Conc 34.5 % (30-36); Mean Corpuscular Hemoglobin 30.4 PG (26-34); Mean Corpuscular Volume 88.1 fL (80-100); Monocytes Absolute Auto 500 /uL (0-900); Monocytes Percent Auto 6.4 % (3-14); Neutrophils Absolute Auto 4600 /uL (1500-7000); Platelet Count 297 X10^3/uL (150-400); Red Blood Cell Count 4.57 X10^6/uL (4.0-5.2); Red Cell Distribution Width 13.1 % (11.6-14.8); White Blood Cell Count 7.2 X10^3/uL (4.5-11.0)
[2021-11-09 11:33] LABS: BUN Creatinine Ratio 27.8 (6-22); Blood Urea Nitrogen 20 mg/dL (7-17); Calcium 10.1 mg/dL (8.4-10.2); Carbon Dioxide 32 mmol/L (22-32); Chloride 102 mmol/L (98-107); Estimated Glomerular Filt Rate > 60.0 mL/min (>60); Glucose 103 mg/dL (80-110); HEMOLYSIS < 15 (0-50); Potassium 4.3 mmol/L (3.4-5.1); Sodium 140 mmol/L (137-145)
== END ==
PROVIDERS: PCP Family Medicine; Referring Provider Orthopaedic Surgery Orthopaedic Surgery of the Spine; Visit Provider Orthopaedic Surgery Orthopaedic Surgery of the Spine
DX: I10 Essential (primary) hypertension (principal); R79.89 Other specified abnormal findings of blood chemistry; E78.2 Mixed hyperlipidemia; E11.9 Type 2 diabetes mellitus without complications; Z01.818 Encounter for other preprocedural examination; Z01.812 Encounter for preprocedural laboratory examination
CPT/HCPCS: 36415; 80048; 83036; 85025; 93005

== ENCOUNTER → 2021-11-29 08:13 | Outpatient (CLI) | payer OTHER, SELFPAY ==
[2021-11-29 08:51] LABS: COVID19 -Nasal RAPID Negative (Negative)
== END ==
PROVIDERS: PCP Family Medicine; Visit Provider Nurse Practitioner Family
DX: Z01.812 Encounter for preprocedural laboratory examination (principal); Z20.822 Contact with and (suspected) exposure to COVID-19
CPT/HCPCS: 87635; C9803

== ENCOUNTER → 2022-01-14 11:15 | Outpatient (CLI) | payer OTHER, SELFPAY ==
[2022-01-14 13:32] LABS: COVID19 -Nasal RAPID Negative (Negative)
== END ==
PROVIDERS: PCP Family Medicine; Visit Provider Family Medicine Sleep Medicine
DX: Z20.822 Contact with and (suspected) exposure to COVID-19 (principal)
CPT/HCPCS: 87635; C9803

== ENCOUNTER 2022-01-17 06:05 | Day surgery (SDC) | payer OTHER, SELFPAY ==
[2022-01-13 08:10] VITALS: BMI 26.9
[2022-01-17] VITALS (15 sets, daily range): BP systolic 147–173; BP diastolic 66–99; PULSE 69–107; RESP 12–18; TEMP 36.1–36.8; O2SAT 92–99; BMI 26.9
--- NOTE | 2022-01-17 | DI.RAD.S_ITS ---
PROCEDURE: XR CERVICAL SPINE 2V OR 3V INDICATIONS: C4-5 C5-6 ACDF TECHNIQUE: 2 view(s) of the cervical spine were acquired. COMPARISON: [facility], MR, MR CERVICAL SPINE WO CON, 07/28/2021, 8:20. [facility], CR, XR CERVICAL SPINE 2V OR 3V, 09/28/2020, 9:07. FINDINGS: Intraoperative fluoroscopic images image anterior/interbody fusion at the presumed C4-C5 and C5-C6 with fixation hardware and disc spacers acted positions. IMPRESSION: Intraoperative images demonstrating ACDF at the presumed C4-C5 and C5-C6 levels. Dictated by: Griffin RAYMOND Interpreted: Wilber Deleon MD on 01/17/2022 at 10:14 Transcribed by: FAREED on 01/17/2022 at 10:16 Approved by: Wilber Deleon M.D. on 01/17/2022 at 10:45
[2022-01-17] MEDS: LACTATED RINGERS 1,000 ML 42 ML IV (07:07)
--- NOTE | 2022-01-17 07:35 | SUR.OPER ---
Supine, head on gel donut. Arms padded with gel pads, tucked at sides, towel roll under shoulders. Safety belt at thigh. Legs uncrossed.
--- NOTE | 2022-01-17 07:48 | PM.PREOP ---
Pre-operative Note COVID-19 COVID-19 status: Negative Result date/Date tested (Pos, Neg/Pending): 01/16/22 Criteria for continued procedure: Expected advancement of disease process, Possibility delay results in more complex future surgery or treatment, Increased loss of function, Continuing or worsening of significant or severe pain, Deterioration of the patient's condition or overall health and Delay expected to result in less-positive ultimate med/surg outcome Interval Note History & Physical reviewed/Exam performed by Physician: Yes Changes to H&P: No
[2022-01-17] MEDS: CEFAZOLIN 2 GM/20 ML SYRINGE IV ×3 (08:01→23:52)
[2022-01-17] MEDS: ACETAMINOPHEN IV 1,000 MG/100 ML VIAL 400 MG IV (08:27)
[2022-01-17] MEDS: BUPIVACAINE 0.25% (PF) VIAL 30 ML INJ (08:30)
[2022-01-17] MEDS: EPINEPHrine 1 MG/ML 0.15 MG INJ (08:31)
--- NOTE | 2022-01-17 09:03 | SUR.OPER ---
GLASSES TO PACU WITH PATIENT.
--- NOTE | 2022-01-17 10:18 | P.OP_ITS ---
Operative Date/Time/Diagnoses Date of procedure: 01/17/22 Time of procedure: 07:45 Pre-op diagnosis: 1. C4-5, C5-6 spinal stenosis 2. cervical spondylosis with radiculopathy Post-op diagnosis: same Procedure & Clinicians Procedure: 1. C4-5, C5-6 anterior cervical diskectomy and fusion 2. C4-5, C5-6 anterior interbody cage placement 3. C4-5, C5-6 anterior instrumentation with plate and screw placement in C5-C6 and C7 vertebrae 4. Utilization of microsurgical technique and operating microscope Same procedure as scheduled: Yes Indications: Patient has been having chronic neck pain and worsening cervical radiculopathy. Patient failed multiple conservative management with worsening pain weakness and numbness in her upper extremity. Patient has been having difficulty performing activity of daily living. After discussing risks benefits of treatment options, patient elected proceed with surgery. Surgeon: Murali High Senior Network Systems Engineer: Roz Parra Click Yes if Unassisted: No Anesthesia Type: General Operative Notes Closure Type: primary Specimen(s): none sent Prosthetic devices, grafts, tissues, transplants, or devices: Globus Extend Plate, PEEK cages Estimated Blood Loss (mL): 10 Blood products transfused: none Procedure in detail: Patient was seen in the preoperative area. Risks and benefits of the surgery was discussed with the patient. Operative consent was obtained and placed in the chart. Patient was then taken to the operative room. Prophylactic antibiotic was given less than 0.5 hr prior to skin incision. General anesthesia was administered. Patient was placed into a supine position on her radiolucent tab le. Bilateral shoulders were taped down to allow proper C-arm imaging. Anterior cervical area was prepped and draped in a sterile fashion. Time-out was performed at this time. Using lateral C-arm imaging, the level between C4 and C6 was identified and marked on patient's neck. A oblique incision from midline towards medial border of sternocleidomastoid muscle was made. The platysma muscle was incised in line with skin incision. Metzenbaum scissor was used to develop the plane between the medial border of sternocleidomastoid d and the strap muscles medially. The carotid sheath and its contents were identified and protected behind the hand- held retractor during the entire case. The plane between the carotid sheath and strap muscles was developed with Metzenbaum scissors. Dissection was made down to the level of the anterior cervical fascia. Longus colli muscle was incised on the anterior aspect of vertebral bodies bilaterally from C4-6. Spinal needle was placed into the C5-6 disc space and confirmed with lateral C-arm imaging. Using microsurgical technique and operative microscope, anterior cervical diskectomy was performed at C4-5, C5-6 level. This was done by removing the disc material, removing the anterior and posterior osteophytes posterior longitudinal ligaments along with performing bilateral foraminotomies at both levels. Patient was found to have severe central and foraminal stenosis at both levels. Patient's stenosis was fully decompressed after decompression was completed. After the diskectomy was completed, 2 anterior interbody cages were obtained. The cages were packed with globus via cell bone grafting material. One cage each along with the bone grafting material was then packed into the interbody spaces from C4-C6 with one cage into each interbody level. After the cages were placed, the anterior cervical plate was stabilized to the C4-6 vertebrae using 2 screws at each each level. Total 6 screws were placed. After confirming placement of the hardware with AP and lateral C-arm imaging, the screws were locked into the plate using the locking mechanism and torque limiting screwdriver. After the hardware was placed and confirmed with AP and lateral C-arm imaging, the wound was irrigated with sterile normal saline. The platysma muscle and the subcutaneous tissue was closed with 2-0 Vicryl. The skin was closed with 4-0 Monocryl and Steri-Strips. Patient tolerated the procedure well. Patient was transferred recovery room in stable condition. There were no complications. Complications: none Post-operative Condition: stable Disposition: PACU Plan for aftercare: Admit to inpatient hospital
--- NOTE | 2022-01-17 10:41 | SUR.PHASEI ---
Neuromuscular assessment: pt is able to move all extremities equally. Pt is writing in bed while she wakes up from anesthesia. No c/o pain noted at this time.
--- NOTE | 2022-01-17 11:05 | SUR.PHASEI ---
Report called to Karla RDZ. Pt being transferred to 221. Pt updated on plan of care and is agreeable.
[2022-01-17] MEDS: SODIUM CHLORIDE 0.9% 1,000 ML 100 ML IV ×2 (11:45→21:02)
[2022-01-17] MEDS: ONDANSETRON 4 MG/2 ML INJ IV (12:36)
[2022-01-17] MEDS: HYDROMORPHONE 0.5 MG INJ 0.2 MG IV (13:42)
--- NOTE | 2022-01-17 14:45 | PT.IIE ---
Current Diagnoses Other spondylosis with radiculopathy, cervical region (01/17/22) Spinal stenosis, cervical region (01/17/22) Surgery Performed Operation Date: 01/17/22 07:45 Actual Procedures p C4-5, C5-6 ACDF w. anterior instrumentation - Murali High MD Surgical History (Last Updated 11/24/21 @ 09:14 by Fabiola Bone, RN) Status post dilation and curettage Status post hysteroscopy (01/22/16) Medical History (Last Updated 11/24/21 @ 09:14 by Fabiola Bone RN) Abscess Acquired spondylolysis of lumbar spine Arthritis (Unknown) Elevated liver function tests Hearing loss (Unknown) History of atrial fibrillation (Unknown) Hyperlipemia (Unknown) Hypertension (Unknown) Hypothyroidism (Unknown) Neuropathy Osteopenia (~03/2015) Osteoporosis (~04/2017) Preventative health care Sinus drainage Spondylolysis, cervical region Status post left heart catheterization (09/2014) Type 2 diabetes mellitus Physical Therapy Inpatient Evaluation/Re-Eval M1 PT/OT-IP Prior Functional Status Start: 01/17/22 11:42 Freq: NEEDED Status: Active Protocol: Document 01/17/22 14:45 AW (Rec: 01/17/22 15:32 AW [id number]) Medical Review Prior Functional Status Medical History Reviewed Yes Communication WNL. No known deficits. Mobility and Gait Independent without AD. Pt does report falls history but denies falls in the past one year. Activities of Daily Living and IADL's Independent with ADL's. Pt manages her own medications. She does not usually drive. Social History Household Members spouse Living Arrangements House Number of Floors (Floors) One Floor Number of Stairs To Enter/Railing? 3 MELECIO with wide bilateral rails (can only contact one at a time). Home Environment High Toilet,Walk in Shower Home Equipment Straight Cane Employment Status Retired Additional Social History Comment Pt has a recliner she can sleep in if bed is uncomfortable. She lives with her spouse, John, who will be available and able to assist at discharge. M2 PT-IP Current Condition Start: 01/17/22 11:42 Freq: NEEDED Status: Active Protocol: Document 01/17/22 14:45 AW (Rec: 01/17/22 15:32 AW [id number]) Physical Therapy Current Condition Current Condition Evaluation Date 01/17/22 Treatment Diagnosis s/p C5-6 ACDF; difficulty in walking Onset Date 01/17/22 M3 PT-IP Subjective Start: 01/17/22 11:42 Freq: NEEDED Status: Active Protocol: Document 01/17/22 14:45 AW (Rec: 01/17/22 15:32 AW [id number]) Subjective Physical Therapy Visit Type Type Initial Evaluation Visit Start Time 14:24 Visit Stop Time 14:45 Total Visit Minutes 21 Notes Pt's spouse present throughout . Physical Therapy Visit Comments Patient Comments Pt has been up with nursing to [facility] and has been nauseated but is willing to do PT. Patient Goals Return home with spouse support. Therapy Pain Assessment Pain When Pain Assessed At Rest Pain Present Pain Present Pain Reported Location Posterior Neck Intensity 6 Pain Management Techniques Distraction,Modification of Treatment,Re-positioning, Timing of Activity with Medications M4 PT-IP Mobility and Gait Start: 01/17/22 11:42 Freq: NEEDED Status: Active Protocol: Document 01/17/22 14:45 AW (Rec: 01/17/22 15:32 AW [id number]) PT-Bed Mobility Assessment Rolling Type of Rolling Log Rolling,Roll to Right Level of Assist Contact Guard Assistance Supine to Sit Supine to Sit Standby Assistance Sit to Supine Sit to Supine Standby Assistance PT-Transfer Assessment Sit to and From Stand Sit to and from Stand Standby Assistance,Use of Upper Extremities Equipment Transfer Assistive Device None,Gait Belt Orthotic/Prosthetic Devices or Brace: Yes Transfers Transfer Destination Bed,Chair Transfer Technique Stand Step Pivot Transfer Ability Level of Assist Standby Assistance Comments Mobility Comments Pt was lying in bed as PT arrived. BP 161/78 HR 96 SpO2 97% on 2L/min NC. Instructed pt in log roll technique and pt completed log roll to right side CGA and cues. SL to sit SBA. Pt sat EOB with good balance and stood SBA. Removed supplemental O2. She walked to the chair and transferred SBA. She stood and walked around the bed SBA but then reported dizziness and nausea. She sat on the opposite side of the bed. BP 156/85 HR 97 SpO2 93% on room air. PT reapplied O2 and sats sonia to 96%. Pt was left with call light and tray table in reach. Gait Assessment Gait Gait Assistance Required: Standby Assistance Distance (Feet) 30 Assistive Devices Assistive Device None,Gait Belt Gait Deviations General Gait Pattern Decreased Stride Length, Decreased Feet Clearance Factors Limiting Gait Function Factors Limiting Gait Function Pain,Poor Balance Comments Gait Comments Pt nauseous and slightly groggy. Somewhat unsteady but without LOB. Stair Climbing Assessment Comments Stair Climbing Comments Not assessed. PT-Balance Assessment Sitting Balance and Reactions Static Sitting Balance Ability Good Dynamic Sitting Balance Ability Good Standing Balance and Reactions Static Standing Balance Ability Good Dynamic Standing Balance Ability Fair Device Used no AD M5 PT-IP Objective Assessments Start: 01/17/22 11:42 Freq: NEEDED Status: Active Protocol: Document 01/17/22 14:45 AW (Rec: 01/17/22 15:32 AW [id number]) Orientation Orientation/Cognition Level of Alertness Alert Orientation Name,Day of Week,Place, Situation Safety Awareness Understands Safety Issues Memory Description No Deficits Noted Gross Range of Motion Upper Extremity ROM Assessment Within Functional Limits Lower Extremity ROM Assessment Within Functional Limits Strength Upper Extremity Strength Assessment Within Functional Limits Lower Extremity Strength Assessment Within Functional Limits Sensation Assessment Sensation Gross Sensation Right UE Impaired Comments Sensation Comments Pt states she has numbness/ tingling RUE before surgery M6 PT-IP Treatment Start: 01/17/22 11:42 Freq: NEEDED Status: Active Protocol: Document 01/17/22 14:45 AW (Rec: 01/17/22 15:32 AW [id number]) Physical Therapy Treatment Education Education Provided Precautions,Post-Op Packet, Safety Other Treatments Other Treatment Performed Educated pt on use of soft collar for comfort and provided education on donning/ doffing using mirror for visual feedback. Provided handout for voice and swallow after ACDF. M7 PT-IP Assessment and Plan Start: 01/17/22 11:42 Freq: NEEDED Status: Active Protocol: Document 01/17/22 14:45 AW (Rec: 01/17/22 15:32 AW [id number]) PT Summary Assessment and Plan Potential Rehabilitation Potential Good Status of Condition at Evaluation Evolving Summary Impairments Pain,ROM,Balance,Bed Mobility, Transfers,Gait Assessment Summary Ann-Marie is a 71 yo woman seen for PT evaluation on POD0 following C5-6 ACDF. She is independent in all regards at baseline but does not usually drive. She required SBA to occasional CGA for limited mobility assessment this date due to nausea and pain. PT anticipates she will be safe to discharge home with assist once medically stable. Will follow up next AM to progress gait, review precautions, and complete stair training. Goals Bed Mobility Goal Independent Transfer Goal Independent Gait Goal Independent Gait Distance 200 Other Goals - up/down 3 steps with unilateral rail SBA Days to Meet Goals 2 Frequency of Treatment Frequency Of Treatment Twice a Day Treatment Plan Physical Therapy Treatment Plan Bed Mobility Training,Transfer Training,Gait Training, Therapeutic Exercise,Balance Retraining,Post Op Education, Discharge Planning,Hot or Cold Pack Other Recommendations and Next Treatment progress gait, review Focus precautions, and complete stair training Precautions Cervical Spine Precautions Soft Collar for Comfort,No Heavy Lifting,Log Roll Recommendations To Nursing Amount of Assist Needed 1 Person Assist Discharge Recommendations PT Discharge Recommendations Home with Assistance Transportation Needs at Discharge Private Vehicle
--- NOTE | 2022-01-17 15:31 | CM.DANOTE ---
DCP: Case received, EMR reviewed and met with patient. Spouse, Leo, was also at bedside. Introduced self and role. Was able to obtain information regarding patient's baseline activity status at home prior to surgery. DCP assessment completed with information currently available. Patient is a 71 year old female who admitted early this morning to the care of the orthopedic team. PCP: Dr. Jose. Payer: [facility]. Patient came to the hospital via private vehicle for a surgical procedure. Patient had C4-5, C5-6 anterior cervical diskectomy and fusion. Patient has had history of chronic neck pain and worsening cervical radiculopathy. Met with patient in her room. Spouse, Leo, was also at bedside. Patient had just worked with P.T. Patient is alert and oriented, pleasant. She was in bed, neck brace in place. At her baseline, she is independent. They have a couple of stairs to get into their home. Spouse confirmed that he will be able to assist patient when she goes home. P: DCP to continue to follow. Patient should be able to go home when she is deemed medically stable. She will continue to work with P.T. Ekta Diaz RN/Contract Lead Discharge Planning/Care Management CM Discharge Assessment Start: 01/17/22 15:23 Freq: Status: Active Protocol: Document 01/17/22 15:23 (Rec: 01/17/22 15:31 [id number]) Discharge Planning Assessment Assigned Dish Room Worker Ekta Diaz RN Case Manager Advance Directives? Yes Advance Directives on File Yes History Provided By Patient,Medical Record Prior Living Arrangements House Household Members spouse Type of transporation used prior to Drives own vehicle admit Independent with ADL's Yes Is patient alert and oriented? Yes Caregiver for Another No Barriers to Discharge No Comment Patient has supportive at home. Discharge Plan Home Transportation Arrangement Spouse Referrals Initiated None needed Whiteboard Updated in Patient Room with Yes name and ext. # of Dish Room Worker Next Review Type Continued Stay Review Pre-Anesthesia Assessment Start: 11/24/21 08:59 Freq: Status: Active Protocol: Document 01/13/22 08:10 CAB (Rec: 11/24/21 09:35 CAB [id number]) Pre-Anesthesia Assessment Patient Information Reviewed Via Phone Assessment Assessment Completed With Patient Diagnostic Results BMP/CMP,CBC,EKG Comment Labs/EKG @ 11/09/21, COVID screen @ [facility] 01/14/22 Primary Care Provider Varun Jose Seen Specialist in Last 12 Months Yes Specialist Seen Senior Front End Developer,Orthopedist Primary Language Citizen Of [place] Scheduler Conveyor Required No Height 5 ft 5 in Weight 162 lb Body Mass Index (BMI) 26.9 Hearing Ability Hard of Hearing,Use of Hearing Aid Visual Assist Glasses Dentition Type Teeth, Natural Present Barriers to Learning None Hx Anesthesia Reactions No Hx Family Anesthesia Reaction No Hx Malignant Hyperthermia No Hx Blood Transfusions No Anesthesia Review Requested No alcohol intake never Smoking Status Never smoker Substance Use Type does not use Pain Present Pain Reported Musculoskeletal Symptoms Limited Range of Motion,Neck Pain,Numbness,Radiating Pain into Limb,Tingling History of Falling (Recent or History of Yes ) Patient is completely paralyzed or No completely immobile Mental Status Oriented to own ability Is patient on oxygen? No Does patient have LEWIS/SOB No Hx Sleep Apnea No Currently Taking a Beta Maryann Yes: Metoprolol Can You Climb a Flight of Stairs Without Yes SOB Hx Chest Pain No Hx SOB No Hx Syncope or Dizziness No Anti-Coagulant Therapy Yes: ASA 162mg -pt will check w/cardiology if to hold Has a Senior Front End Developer Yes: Dr. Berger-last visit Cardiac Testing No Hx Pacemaker/ICD No Pacemaker Rep Required? No Comment Cardiac records put in surgery folder for dos (Not scanned in) Diet Type At Home Regular dysphagia No Urinary Catheter Present No Hx Urinary Self Catheterization No Diabetes Yes HgbA1C 5.7 Date 11/09/21 Patient No Lactating No Hx Drug Resistant Organism No Presence of External or Internal Medical Yes: left eye IOL, left Devices hearing aid Have you had any close contact with No someone diagnosed with COVID-19? Received a COVID vaccine? Yes Received all doses? Yes Marital Status Lives With spouse Prior Living Arrangements House Number of Floors (Floors) One Floor Support System Spouse Does the Patient Have Assistance After Yes Surgery Patient Discharge Plan Description Return Home Comment Pt advised overnight length of stay per surgeon Feels Safe in Current Environment Yes Been Physically Hurt or Threatened By a No Person in Current Environment Do you have thoughts of harming yourself None or others? Are you currently considering suicide? No Do you have a plan to hurt yourself or No Plan others? Do You Have Any Spiritual Beliefs That No May Affect Your HC Choices? Do You Have Any Cultural Practices That No May Affect Your HC Choices? Comment Sikhism Who Can We Speak to About Patient's Care Family, friends Identifying Code for Release of Patient Declines to issue Information Health Care Proxy/Next of Kin Leo () Health Care Proxy Emergency Contact Name Leo () Emergency Contact Advance Directives? Yes Advance Directives on File Yes Power of Integrated Circuit Design Engineer No PAC Instructions Diabetes instructions, Medications to take/avoid, Nasal antibiotic,No ETOH/ petroleum product on skin DOS, NPO,Post-op transportation, Sensory aids,Sturdy shoes/ comfortable clothes,Do not bring valuables and remove jewelry
[2022-01-17] MEDS: ACETAMINOPHEN 325 MG TABLET 650 MG PO ×2 (15:59→21:56)
--- NOTE | 2022-01-17 18:53 | PC.NURSE ---
A&Ox4. HTN: 162/76. HR 92. all other vitals stable. 2L O2 98%. Pain 8/10, given PRN Iv dilaudid. Paain went down but made patient nauseous. Given PRN zofran. Gave tylenol for pain the rest of shift and tolerated well. Dressing CDI. Collar in place. Bed low, call light within reach. 1 person assist to toilet.
[2022-01-17] MEDS: hydrOXYzine pamoate 25 MG CAPSULE PO (20:38)
[2022-01-17] MEDS: SENNOSIDES 8.6 MG TABLET 17.2 MG PO (20:38)
[2022-01-17] MEDS: gemfibroziL 600 MG TABLET PO (20:38)
[2022-01-17] MEDS: METOPROLOL ER 25 MG TABLET PO (20:38)
[2022-01-17] MEDS: DOCUSATE 100 MG CAPSULE PO (20:39)
--- NOTE | 2022-01-17 21:16 | PC.NURSE ---
Patient is alert and oriented. Breath sounds CTA with RA sat of 96%. HRR. BP elevated at 149/73; received po Metoprolol. Denies nausea. BT hypoactive but states she is passing flatus. Voiding on toilet; denies dysuria, frequency or urgency. Is able to move self in bed. Up to bathroom with SBA; uses IV pole to hang onto. Bilateral foot numbness is chronic; other CMS is intact. Dressing to anterior neck is CDI; wearing a soft collar. Denies any difficulty swallowing but does have sore throat. States pain is 6/10 but declines offer of narcotic pain medication and wants to take only Tylenol but was agreeable to taking Vistaril and ice pack applied. Noted to be diabetic so CBG checked and was 220; will have staff do [facility] glucose checks. Bilateral foot SCD's applied. Fall risk score is moderate but patient is oriented and calls appropriately for assistance in getting out of bed so bed alarm is not activated at this time.
[2022-01-18 01:15] VITALS: BP 142/60; PULSE 77; RESP 18; TEMP 37; O2SAT 96
[2022-01-18] MEDS: ACETAMINOPHEN 325 MG TABLET 650 MG PO ×2 (04:01→10:20)
[2022-01-18] MEDS: hydrOXYzine pamoate 25 MG CAPSULE PO (04:02)
[2022-01-18 04:13] VITALS: BP 147/63; PULSE 71; RESP 16; TEMP 36.6; O2SAT 97
[2022-01-18] MEDS: LEVOTHYROXINE 75 MCG TABLET PO (06:35)
[2022-01-18 07:38] VITALS: BP 143/62; PULSE 64; RESP 14; TEMP 36.4; O2SAT 98
--- NOTE | 2022-01-18 07:39 | P.DS_ITS ---
History of Present Illness History of Present Illness Chief complaint: OPB Narrative: Pain is mild. Denies fever or chills. No nausea or vomiting. No swallowing difficulties. No shortness of breath or chest pain. She has her at home to assist her. Discharge Providers Provider Discharge Date: 01/18/22 Primary care physician: Varun Jose DO Consults: 01/17/22 11:27 Consult to Occupational Therapy Evaluate & Treat Comment: Physician Instructions: Evaluate and treat Consult to Physical Therapy Evaluate & Treat Comment: Physician Instructions: Evaluate and Treat Discharge provider: Aníbal Seals PA-C Summary Hospital Course Discharge Diagnosis: 1. C4-5, C5-6 spinal stenosis 2. cervical spondylosis with radiculopathy Hospital Course: 1.? C4-5, C5-6 anterior cervical diskectomy and fusion 2.? C4-5, C5-6 anterior interbody cage placement 3.? C4-5, C5-6 anterior instrumentation with plate and screw placement in C5-C6 and C7 vertebrae 4.? Utilization of microsurgical technique and operating microscope Same procedure as scheduled: Yes Indications: Patient has been having chronic neck pain and worsening cervical radiculopathy. Patient failed multiple conservative management with worsening pain weakness and numbness in her upper extremity.? Patient has been having difficulty performing activity of daily living.? After discussing risks benefits of treatment options, patient elected proceed with surgery. Surgeon: Murali High Drawer In: Roz Parra Click Yes if Unassisted: No Anesthesia Type: General Operative Notes Closure Type: primary Specimen(s): none sent Prosthetic devices, grafts, tissues, transplants, or devices: Globus Extend Plate, PEEK cages Estimated Blood Loss (mL): 10 Blood products transfused: none Patient admitted to the hospital for the above-mentioned procedure. Patient consented to the same. Patient taken operating room yesterday is back in her room recovering well as in stable condition. Patient will work with physical therapy this morning. Patient will be discharged home today in stable condition of safe for home environment. Exam Vital Signs (past 8 hours): - 01/18/22 01:15 01/18/22 04:13 01/18/22 07:38 Temperature 98.6 F 97.9 F 97.6 F Pulse Rate 77 71 64 Respiratory Rate 18 16 14 Blood Pressure 142/60 H 147/63 H 143/62 H Pulse Oximetry 96 97 98 Oxygen Delivery Method Room Air Oxygen Flow Rate 0 Narrative Exam Narrative: Pleasant 71-year-old female resting comfortably in bedside chair no apparent distress. Soft collar is on. Dressing is Clean, dry, intact.. Motor functions intact bilateral upper extremities. Sensation grossly intact to light touch bilateral upper extremities. [facility] Medical History Abscess Acquired spondylolysis of lumbar spine Arthritis (Unknown) Elevated liver function tests Hearing loss (Unknown) History of atrial fibrillation (Unknown) Hyperlipemia (Unknown) Hypertension (Unknown) Hypothyroidism (Unknown) Neuropathy Osteopenia (~03/2015) Osteoporosis (~04/2017) Preventative health care Sinus drainage Spondylolysis, cervical region Status post left heart catheterization (09/2014) Type 2 diabetes mellitus Surgical History History of ear surgery History of tonsillectomy History of tympanoplasty Hx of left cataract extraction (2017) Hx of mitral valve repair (11/2014) Status post dilation and curettage Status post hysteroscopy (01/22/16) Family History Brother Psoriasis DM w/o complication type II Essential hypertension Other and unspecified hyperlipidemia Obese Father DM w/o complication type II Heart disease CVA (cerebral infarction) Mother Parkinsons disease Sister Other and unspecified hyperlipidemia Essential hypertension Sister Other and unspecified hyperlipidemia Essential hypertension Social History household members: spouse Smoking Status: Never smoker second hand exposure: No alcohol intake: never substance use type: does not use eating out: rarely or never Type(s) of exercise: walking Discharge Assessment & Plan Assessment and Plan Assessment: Patient progressing as expected Plan of Treatment: Soft collar for comfort Multimodal pain management Discharge home today in stable condition Discharge Plan Discharge Plan Patient Disposition: Home Discharge orders & Medications Discharge Orders: Discharge (Order); Ordered 01/18/22 Ordered By: Aníbal Seals Prescriptions: New acetaminophen 325 mg Tablet 650 mg PO Q6HR PRN (Reason: Pain, Mild (1-3)) Qty: 60 0RF docusate sodium 100 mg Capsule 100 mg PO BID Qty: 20 0RF oxycodone 5 mg Tablet 5 mg PO Q3HR PRN (Reason: Pain, Moderate (4-6)) Qty: 30 0RF hydroxyzine pamoate 25 mg Capsule 25 mg PO Q4HR PRN (Reason: Nausea And Vomiting) Qty: 30 0RF Continued B-complex with vitamin C tablet 1 tab PO DAILY 0RF cholecalciferol (vitamin D3) 2,000 unit capsule 2,000 unit PO DAILY 0RF (DME) blood-glucose meter Kit See Rx Instructions .ROUTE .MEDSUPPLY Qty: 1 0RF Rx Instructions: Use to test blood glucose Twice Daily (DME) lancets [BD Ultra Fine Lancets] 33 gauge misc See Rx Instructions .ROUTE .MEDSUPPLY Qty: 100 0RF Rx Instructions: Use to test blood glucose twice daily levothyroxine [Synthroid] 75 mcg tablet 75 mcg PO QAM Qty: 90 3RF metoprolol succinate 25 mg tablet extended release 24 hr See Rx Instructions .ROUTE .COMPLEX Qty: 180 3RF Dose Instruction: Take 1 tablet (25 mg) by mouth 2 times daily Rx Instructions: Take 1 tablet (25 mg) by mouth 2 times daily gemfibrozil 600 mg tablet See Rx Instructions .ROUTE .COMPLEX Qty: 180 3RF Dose Instruction: Take 1 tablet (600 mg) by mouth 2 times daily Rx Instructions: Take 1 tablet (600 mg) by mouth 2 times daily ezetimibe 10 mg tablet See Rx Instructions .ROUTE .COMPLEX Qty: 90 3RF Dose Instruction: Take 1 tablet (10 mg) by mouth daily Rx Instructions: Take 1 tablet (10 mg) by mouth daily alendronate 70 mg tablet 70 mg PO QWEEK Qty: 12 3RF (DME) Blood Glucose Test Strip See Rx Instructions .ROUTE .MEDSUPPLY Qty: 200 5RF Rx Instructions: Use to test blood glucose twice daily. lisinopril-hydrochlorothiazide 10-12.5 mg tablet 1 tab PO DAILY Qty: 90 3RF Discontinued aspirin [Adult Low Dose Aspirin] 81 mg tablet,delayed release (DR/EC) 162 mg PO DAILY 0RF Follow up/Referrals: Murali High MD [Physician] - (2 weeks) Varun Jose DO [Primary Care Provider] - Diet/Activity/Treatments Diet: Diet as Tolerated Activity: Limit bending, twisting, lifting Other treatments: Soft collar for comfort Skin/Wound/Dressing Care Report to your healthcare provider any signs of infection, such as:: chills, fever, increased pain, unusual drainage and unusual redness Dressing: Keep dressing clean and dry Visit Report/Discharge Packet Instructions: DI for Anterior Cervical Discectomy and Fusion Stand Alone Forms: Surgery Discharge Discharge Data Primary Care Provider: Varun Jose Attending Provider: Murali High
[2022-01-18 07:52] VITALS: O2SAT 96
[2022-01-18] MEDS: CHOLECALCIFEROL (VITAMIN D3) 1,000 UNIT TABLET 2000 UNIT PO (08:26)
[2022-01-18] MEDS: lisinopriL 10 MG TABLET PO (08:26)
[2022-01-18] MEDS: EZETIMIBE 10 MG TABLET PO (08:26)
[2022-01-18] MEDS: DOCUSATE 100 MG CAPSULE PO (08:26)
[2022-01-18] MEDS: hydroCHLOROthiazide 25 MG TABLET 12.5 MG PO (08:27)
[2022-01-18] MEDS: gemfibroziL 600 MG TABLET PO (08:27)
[2022-01-18] MEDS: METOPROLOL ER 25 MG TABLET PO (08:27)
--- NOTE | 2022-01-18 09:11 | OT.IP.EVAL ---
Current Diagnoses Other spondylosis with radiculopathy, cervical region (01/17/22) Spinal stenosis, cervical region (01/17/22) Surgery Performed Operation Date: 01/17/22 07:45 Actual Procedures p C4-5, C5-6 ACDF w. anterior instrumentation - Murali High MD Past Medical History (Last Reviewed 01/18/22 @ 07:42 by Aníbal Seals PA-C) Abscess Acquired spondylolysis of lumbar spine Arthritis (Unknown) Elevated liver function tests Hearing loss (Unknown) History of atrial fibrillation (Unknown) History of ear surgery History of tonsillectomy History of tympanoplasty Hx of left cataract extraction (2017) Hx of mitral valve repair (11/2014) Hyperlipemia (Unknown) Hypertension (Unknown) Hypothyroidism (Unknown) Neuropathy Osteopenia (~03/2015) Osteoporosis (~04/2017) Preventative health care Sinus drainage Spondylolysis, cervical region Status post left heart catheterization (09/2014) Type 2 diabetes mellitus Surgical History (Last Reviewed 01/18/22 @ 07:42 by Aníbal Seals PA-C) History of ear surgery History of tonsillectomy History of tympanoplasty Hx of left cataract extraction (2017) Hx of mitral valve repair (11/2014) Status post dilation and curettage Status post hysteroscopy (01/22/16) Occupational Therapy Inpatient Evaluation/Re-Eval M1 PT/OT-IP Prior Functional Status Start: 01/17/22 11:42 Freq: NEEDED Status: Active Protocol: Document 01/18/22 09:16 [facility]3] (Rec: 01/18/22 09:34 [facility]3] [id number]) Medical Review Prior Functional Status Medical History Reviewed Yes Communication WNL. No known deficits. Mobility and Gait Independent without AD. Pt does report falls history but denies falls in the past one year. Activities of Daily Living and IADL's Independent with ADL's. Pt manages her own medications. She does not usually drive. Social History Household Members spouse Living Arrangements House Number of Floors (Floors) One Floor Number of Stairs To Enter/Railing? 3 MELECIO with wide bilateral rails (can only contact one at a time). Home Environment High Toilet,Walk in Shower Home Equipment Straight Cane Employment Status Retired Additional Social History Comment Pt has a recliner she can sleep in if bed is uncomfortable. She lives with her spouse, John, who will be available and able to assist at discharge. Pt has a built in seat in the shower M2 OT-IP Current Condition Start: 01/18/22 09:15 Freq: Status: Active Protocol: Document 01/18/22 09:16 [facility]3] (Rec: 01/18/22 09:34 [facility]3] [id number]) Occupational Therapy Current Condition Current Condition Evaluation Date 01/18/22 Treatment Diagnosis s/p C4-5, c5-6 ACDF Diagnosis Onset Date 01/17/22 M3 OT- IP Subjective and Pain Start: 01/18/22 09:15 Freq: Status: Active Protocol: Document 01/18/22 09:16 [facility]3] (Rec: 01/18/22 09:34 [facility]3] [id number]) OT- Subjective Occupational Therapy Visit Type Type Initial Evaluation Visit Start Time 09:00 Visit Stop Time 09:11 Total Visit Minutes 11 Occupational Therapy Visit Comments Patient Comments Pt agreed to practice how to blane/doff the soft collar and get dressed as being discharge today. Patient/Caregiver Goals TO go home. OT Pain Assessment Pain When Pain Assessed At Rest Pain Present Pain Present Denied Pain M4 OT- IP ADL's Start: 01/18/22 09:15 Freq: Status: Active Protocol: Document 01/18/22 09:16 [facility]3] (Rec: 01/18/22 09:34 [facility]3] [id number]) OT ADL-Oral Care Comments Oral Care Comments Educated best to spit into a cup or hinge at her hips to spit to best follow her cervical precautions. OT ADL-Dressing General Eval Upper Body Dressing Ability Minimal Assistance Lower Body Dressing Ability Independent Areas Needing Assistance Retrieving/Set-up of Clothing Comments OT Dressing Comments After set-up pt able to dress but needing assist to help thread the arm with IV in place. OT ADL-Bathing Comments OT Bathing Comments Educated able to shower with collar in place but put it in the dryer afterwards, in addition a hand held shower spray can be helpful to avoid getting her neck dressing wet. M5 OT- IP IADL's Start: 01/18/22 09:15 Freq: Status: Active Protocol: Document 01/18/22 09:16 [facility]3] (Rec: 01/18/22 09:34 [facility]3] [id number]) OT-Instrumental Activities of Daily Living Home Safety Awareness Awareness of Need for Assistance at Home Good Awareness Ability to Problem Solve Emergency Able to Problem Solve Situations Home Safety Comments Pt has a supportive that can assist her for all her needs as needed. M6 OT- IP Functional Cognition Start: 01/18/22 09:15 Freq: Status: Active Protocol: Document 01/18/22 09:16 [facility]3] (Rec: 01/18/22 09:34 [facility]3] [id number]) Cognitive Factors Limiting Selfcare Function Cognitive Ability Level of Alertness Alert Patient Orientation Name,Age,Birthday,Month,Date, Year,Day of Week,Place, Situation Attention Span Ability Capable of Focused Attention, Capable of Sustained Attention Ability to Follow Commands Able to Follow Multi-Step Commands Memory Description No Deficits Noted Safety Awareness No Deficits Noted Problem Solving Ability No deficits Noted Cognitive Comments Cognitive Assessment Comments Pt intact during OT eval with no cognitive issues noted. OT- Vision and Hearing OT- Hearing Assessment OT- Hearing Assessment WFL OT- Vision Assessment Visual Acuity Glasses All The Time M7 OT- IP Mobility and Balance Start: 01/18/22 09:15 Freq: Status: Active Protocol: Document 01/18/22 09:16 [facility]3] (Rec: 01/18/22 09:34 [facility]3] [id number]) OT-Transfer Assessment Sit to and From Stand Sit to and from Stand Independent Transfers Transfer Ability Independent Technique Transfer Destination Chair Comments Mobility Comments Pt able to more independently in the room. OT- Balance Assessment Sitting Balance and Reactions Static Sitting Balance Ability Normal Dynamic Sitting Balance Ability Normal Standing Balance and Reactions Static Standing Balance Ability Good Dynamic Standing Balance Ability Good M8 OT- IP Objective Assessments Start: 01/18/22 09:15 Freq: Status: Active Protocol: Document 01/18/22 09:16 [facility]3] (Rec: 01/18/22 09:34 [facility]3] [id number]) OT-Muscle Tone Assessment Muscle Tone WNL Yes M9 OT- IP Assessment and Plan Start: 01/18/22 09:15 Freq: Status: Active Protocol: Document 01/18/22 09:16 [facility]3] (Rec: 01/18/22 09:34 [facility]3] [id number]) OT Summary Assessment and Plan Potential Rehabilitation Potential Excellent Analytic Complexity at Evaluation Low Summary OT Impairments Functional Mobility,Dressing, Bathing Progress Towards Goals Progressing Toward Goals Assessment Summary Pt low complexity and doing well and is very supportive and able to assist pt for all needs as needed. Pt looking to go home with her today. Goals Dressing Goal Independent Toileting Goal Independent Bathing Goal Independent Days to Meet Goals 1 Frequency of Treatment Frequency Of Treatment Once a Day Treatment Plan OT Treatment Plan ADL Training,Functional Mobility,Patient/Family Education,Discharge Planning Discharge Recommendations OT Discharge Recommendations Home with Assistance Home Equipment Needs Hand held shower spray Transportation Needs at Discharge Private Vehicle
--- NOTE | 2022-01-18 09:40 | PT.IPTN ---
Current Diagnoses Other spondylosis with radiculopathy, cervical region (01/17/22) Spinal stenosis, cervical region (01/17/22) Surgery Performed Operation Date: 01/17/22 07:45 Actual Procedures p C4-5, C5-6 ACDF w. anterior instrumentation - Murali High MD Physical Therapy Treatment Note M2 PT-IP Current Condition Start: 01/17/22 11:42 Freq: NEEDED Status: Discharge Protocol: Document 01/17/22 14:45 AW (Rec: 01/17/22 15:32 AW [id number]) Physical Therapy Current Condition Current Condition Evaluation Date 01/17/22 Treatment Diagnosis s/p C5-6 ACDF; difficulty in walking Onset Date 01/17/22 M3 PT-IP Subjective Start: 01/17/22 11:42 Freq: NEEDED Status: Discharge Protocol: Document 01/18/22 09:30 [place] (Rec: 01/18/22 12:27 [place] [id number]) Subjective Physical Therapy Visit Type Type Treatment Note Visit Start Time 09:30 Visit Stop Time 09:40 Total Visit Minutes 10 Notes Pt's spouse present throughout . Number of CHUCK TENDER Visits 1 Physical Therapy Visit Comments Patient Comments Pt agreeable to work w/ PT. M4 PT-IP Mobility and Gait Start: 01/17/22 11:42 Freq: NEEDED Status: Discharge Protocol: Document 01/18/22 09:30 [place] (Rec: 01/18/22 12:27 [place] [id number]) PT-Transfer Assessment Sit to and From Stand Sit to and from Stand Independent,Use of Upper Extremities Equipment Transfer Assistive Device None,Gait Belt Orthotic/Prosthetic Devices or Brace: Yes Transfers Transfer Destination Chair Transfer Technique Pt ambulated w/o AD Transfer Ability Level of Assist Standby Assistance Comments Mobility Comments Pt sitting up in chair w/ in room and eager to be d/c home. Pt stood independently upon arrival and then ambulated SBA to practice stairs. Pt ascended/ descended 3 steps w/ R rail ascending/L rail descending step over step ascending and step to pattern descending pt ambulated additional 100 ft back to room SBA w/ no AD. Stated she feels safe to go home and no trouble getting in and out of bed but may sleep in recliner initially for comfort. Pt left in chair w/ all needs in reach. Gait Assessment Gait Gait Assistance Required: Standby Assistance Distance (Feet) 200 Assistive Devices Assistive Device None,Gait Belt Gait Deviations General Gait Pattern Within Normal Limits Comments Gait Comments Pt ambulated ~200 ft total w/o AD SBA. Stair Climbing Assessment Evaluation Level of Assist On Stairs Standby Assistance,1 Person Assistance Devices Stair Climbing Assistive Devices Left Railing,Right Railing Technique/Endurance Stair Climbing Direction Ascend and Descend Stair Climbing Technique Step Over Step,Step to Step Number of Steps Climbed 3 Stair Climbing Set # Repetitions (reps) 1 Comments Stair Climbing Comments Pt ascended/descended 3 steps step over step w/ R rail ascending and step to step w/ L rail descending SBA no cues or LOB. Pt states she feels able to complete steps leading into home. PT-Balance Assessment Sitting Balance and Reactions Static Sitting Balance Ability Good Dynamic Sitting Balance Ability Good Standing Balance and Reactions Static Standing Balance Ability Good Dynamic Standing Balance Ability Fair Device Used no AD M5 PT-IP Objective Assessments Start: 01/17/22 11:42 Freq: NEEDED Status: Discharge Protocol: Document 01/17/22 14:45 AW (Rec: 01/17/22 15:32 AW [id number]) Orientation Orientation/Cognition Level of Alertness Alert Orientation Name,Day of Week,Place, Situation Safety Awareness Understands Safety Issues Memory Description No Deficits Noted Gross Range of Motion Upper Extremity ROM Assessment Within Functional Limits Lower Extremity ROM Assessment Within Functional Limits Strength Upper Extremity Strength Assessment Within Functional Limits Lower Extremity Strength Assessment Within Functional Limits Sensation Assessment Sensation Gross Sensation Right UE Impaired Comments Sensation Comments Pt states she has numbness/ tingling RUE before surgery M6 PT-IP Treatment Start: 01/17/22 11:42 Freq: NEEDED Status: Discharge Protocol: Document 01/18/22 09:30 [place] (Rec: 01/18/22 12:27 [place] [id number]) Physical Therapy Treatment Education Education Provided Precautions,Post-Op Packet, Safety Other Treatments Other Treatment Performed Discussed benefits of outpatient rehab. M7 PT-IP Assessment and Plan Start: 01/17/22 11:42 Freq: NEEDED Status: Discharge Protocol: Document 01/18/22 09:30 [place] (Rec: 01/18/22 12:27 KS [id number]) PT Summary Assessment and Plan Potential Rehabilitation Potential Good Status of Condition at Evaluation Evolving Summary Impairments Pain,ROM,Balance,Bed Mobility, Transfers,Gait Assessment Summary Pt able to ambulate 200 ft and ascend/descend 3 steps SBA today w/o AD. She feels ready and safe to go home w/ spouse who can provide assistance if needed. She plans to attend outpatient rehab when cleared. Goals Bed Mobility Goal Independent Transfer Goal Independent Gait Goal Independent Gait Distance 200 Other Goals - up/down 3 steps with unilateral rail SBA Days to Meet Goals 2 Frequency of Treatment Frequency Of Treatment Twice a Day Treatment Plan Physical Therapy Treatment Plan Bed Mobility Training,Transfer Training,Gait Training, Therapeutic Exercise,Balance Retraining,Post Op Education, Discharge Planning,Hot or Cold Pack Other Recommendations and Next Treatment progress gait, review Focus precautions, and complete stair training Precautions Cervical Spine Precautions Soft Collar for Comfort,No Heavy Lifting,Log Roll Recommendations To Nursing Amount of Assist Needed 1 Person Assist Discharge Recommendations PT Discharge Recommendations Home with Assistance Transportation Needs at Discharge Private Vehicle
[2022-01-18] MEDS: SODIUM CHLORIDE 0.9% FLUSH 10 ML IV (10:21)
--- NOTE | 2022-01-18 10:27 | PC.NURSE ---
Assess- Patient given tylenol for complaints of pain to neck. Given tylenol and helpful. Dressing to anterior neck is cdi, with neck brace in place to help protect incision. Patient denies numbness or tingling. She is going to be discharged soon. Sitting up in chair and visiting with .
--- NOTE | 2022-01-26 08:02 | PM.HP.1 ---
History of Present Illness History of Present Illness Date Patient Seen: 01/17/22 Time Patient Seen: 07:45 Date of Onset of Symptoms: 08/30/21 Chief complaint: OPB Narrative: Ms. Robledo is a 71 yo F with history of cervical radiculopathy that did not respond to over 6 weeks of conservative care. After risks and benefits of treatment options was discussed, patient elected to proceed with surgery. Patient History Medical History Abscess Acquired spondylolysis of lumbar spine Arthritis (Unknown) Elevated liver function tests Hearing loss (Unknown) History of atrial fibrillation (Unknown) Hyperlipemia (Unknown) Hypertension (Unknown) Hypothyroidism (Unknown) Neuropathy Osteopenia (~03/2015) Osteoporosis (~04/2017) Preventative health care Sinus drainage Spondylolysis, cervical region Status post left heart catheterization (09/2014) Type 2 diabetes mellitus Surgical History History of ear surgery History of tonsillectomy History of tympanoplasty Hx of left cataract extraction (2017) Hx of mitral valve repair (11/2014) Status post dilation and curettage Status post hysteroscopy (01/22/16) Family & Social History Family History Brother Psoriasis DM w/o complication type II Essential hypertension Other and unspecified hyperlipidemia Obese Father DM w/o complication type II Heart disease CVA (cerebral infarction) Mother Parkinsons disease Sister Other and unspecified hyperlipidemia Essential hypertension Sister Other and unspecified hyperlipidemia Essential hypertension Social History: household members spouse Prior Living Arrangements House Safety & Behavioral: Feels Safe in Current Yes Environment Been Physically Hurt or No Threatened By a Person Suicidal Ideation Description None Suicide Plan Description No Plan Tobacco & Substance use: Smoking Status Never smoker alcohol intake never Substance Use Type does not use Meds Home Medications and Allergies Home Medications Medication Instructions Recorded Confirmed Type B-complex with vitamin C 1 tab PO DAILY 05/22/18 01/17/22 History cholecalciferol (vitamin D3) 50 2,000 unit PO DAILY 05/22/18 01/17/22 History mcg (2,000 unit) capsule blood-glucose meter #1 each 09/29/20 01/17/22 Rx lancets 33 gauge (BD Ultra Fine #100 each 09/29/20 01/17/22 Rx Lancets) blood sugar diagnostic (Blood #200 ea 11/16/20 01/17/22 Rx Glucose Test) lisinopril 10 1 tab PO DAILY #90 tab 07/07/21 01/17/22 Rx mg-hydrochlorothiazide 12.5 mg tablet levothyroxine 75 mcg tablet 75 mcg PO QAM #90 tab 07/21/21 01/17/22 Rx (Synthroid) ezetimibe 10 mg tablet See Rx Instructions .ROUTE 07/25/21 01/17/22 Rx .COMPLEX #90 tab gemfibrozil 600 mg tablet See Rx Instructions .ROUTE 07/25/21 01/17/22 Rx .COMPLEX #180 tab metoprolol succinate 25 mg See Rx Instructions .ROUTE 07/25/21 01/17/22 Rx tablet,extended release 24 hr .COMPLEX #180 tab alendronate 70 mg tablet 70 mg PO QWEEK #12 tab 01/17/22 01/17/22 Rx acetaminophen 325 mg tablet 650 mg PO Q6HR PRN #60 tab 01/18/22 Rx docusate sodium 100 mg capsule 100 mg PO BID #20 cap 01/18/22 Rx hydroxyzine pamoate 25 mg capsule 25 mg PO Q4HR PRN #30 cap 01/18/22 Rx oxycodone 5 mg tablet 5 mg PO Q3HR PRN #30 tab 01/18/22 Rx Allergies Allergy/AdvReac Type Severity Reaction Status Date / Time adhesive tape Allergy Severe Redness, Verified 01/17/22 07:01 itching amoxicillin [From AMOXIL] Allergy Severe rash Verified 01/17/22 07:01 hydrocodone [HYDROCODONE] Allergy Severe ITCHY RASH Verified 01/17/22 07:01 Sulfa (Sulfonamide Allergy Severe RASH Verified 01/17/22 07:01 Antibiotics) [SULFA (SULFONAMIDE ANTIBIOTICS)] codeine [CODEINE] AdvReac Intermediate NAUSEA, Verified 01/17/22 07:01 VOMITING fenofibrate [FENOFIBRATE] AdvReac Mild AFFECTED Verified 01/17/22 07:01 HER LIVER simvastatin [SIMVASTATIN] AdvReac Mild AFFECTED Verified 01/17/22 07:01 HER LIVER Exam Vital Signs (past 8 hours): Oxygen Delivery Method Room Air Oxygen Flow Rate 0 Neck Other: Painful ROM of c-spine. Neuro Other: + Spurlings to LUE, sensibility decreased to left C5, C6 dermatome, motor strength 4/5 in left deltoid and biceps. Assessment & Plan Assessment & Plan narrative: Risks for surgery include but not limited to bleeding, infection, nerve/dura/esophagus/blood vessel injury, dysphagia, need for additional procedure. Patient understands and would like to proceed with surgery. I scheduled her for C4-5, C5-6 ACDF. Time Spent With Patient Critical Care time: I spent a total of [] minutes of critical care time on this patient's care today; this time is exclusive of procedural time.
== END 2022-01-18 10:45 | disposition home or self-care (01) ==
LOC: OR 06:06 → AC 06:08
PROVIDERS: PCP Family Medicine; Referring Provider Orthopaedic Surgery Orthopaedic Surgery of the Spine; Visit Provider Orthopaedic Surgery Orthopaedic Surgery of the Spine
PROC: (CPT 22551; principal; 2022-01-17 07:45)
DX: M48.02 Spinal stenosis, cervical region (principal); M47.22 Other spondylosis with radiculopathy, cervical region; I10 Essential (primary) hypertension; E11.9 Type 2 diabetes mellitus without complications; E78.5 Hyperlipidemia, unspecified; Z79.84 Long term (current) use of oral hypoglycemic drugs
CPT/HCPCS: 22551; 22853 ×2; 22552; 72040; 76000; 82962; 97116; 97161; 97165; C1713; J0131; J0171; J0690; J1100; J1170; J2405; J2704; J3010

== ENCOUNTER → 2022-07-07 08:22 | Outpatient (CLI) | payer OTHER, SELFPAY ==
[2022-03-28 11:10] VITALS: BMI 26.9
--- NOTE | 2022-07-07 | DI.MG.S_ITS ---
BILATERAL DIGITAL SCREENING MAMMOGRAM 3D/2D WITH CAD: 07/07/2022 CLINICAL: Routine screening. Comparison is made to exams dated: 06/18/2021 mammogram, 06/17/2020 mammogram, and 04/29/2019 mammogram - [facility]. There are scattered fibroglandular elements in both breasts. Current study was also evaluated with a Computer Aided Detection (CAD) system. There are benign calcifications in both breasts. No significant masses, calcifications, or other findings are seen in either breast. There has been no significant interval change. IMPRESSION: BENIGN There is no mammographic evidence of malignancy. A 1 year screening mammogram is recommended. Based on the Tyrer Cuzick model (a risk assessment model) the patient's lifetime risk is 3.9% and her 10 year risk is 3.2%. According to the ACR, ACS, and NCCN guidelines, an annual breast MRI exam along with mammogram is recommended if the patient's lifetime risk is 20% or greater. This exam was interpreted at Station ID: [id number]. NOTE: For mammograms, a report in lay terms will be sent to the patient. Approximately 15% of breast malignancies will not be visualized mammographically. In the management of a palpable breast mass, a negative mammogram must not discourage biopsy of a clinically suspicious lesion. Electronically Signed By: Nahum hernandez/mary:07/07/2022 12:25:44 letter sent: Normal Exam ACR BI-RADS Category 2: Benign Finding(s) [id number]
== END ==
PROVIDERS: Family Provider Family Medicine; PCP Family Medicine; Referring Provider Family Medicine; Visit Provider Family Medicine
DX: Z12.31 Encounter for screening mammogram for malignant neoplasm of breast (principal)
CPT/HCPCS: 77063; 77067

== ENCOUNTER → 2022-07-11 07:43 | Outpatient (CLI) | payer OTHER, SELFPAY ==
[2022-03-28 11:10] VITALS: BMI 26.9
[2022-07-11 08:35] LABS: Add Manual Diff / Slide Review NO; Basophils Absolute Auto 0 /uL (0-100); Basophils Percent Auto 0.6 % (0-2); Eosinophils Absolute Auto 100 /uL (0-450); Eosinophils Percent Auto 1.9 % (2-4); Hematocrit 37.9 % (36-46); Lymphocytes Absolute Auto 2100 /uL (1100-4500); Lymphocytes Percent Auto 29.5 % (25-40); Mean Corpuscular HGB Conc 34.2 % (30-36); Mean Corpuscular Hemoglobin 30.2 PG (26-34); Mean Corpuscular Volume 88.4 fL (80-100); Monocytes Absolute Auto 500 /uL (0-900); Monocytes Percent Auto 6.8 % (3-14); Neutrophils Absolute Auto 4300 /uL (1500-7000); Neutrophils Percent Auto 61.2 % (50-75); Platelet Count 315 X10^3/uL (150-400); Red Blood Cell Count 4.29 X10^6/uL (4.0-5.2); Red Cell Distribution Width 13.7 % (11.6-14.8)
[2022-07-11 08:45] LABS: Hemoglobin A1C% w Est Avg Glu 6.2 % (4.0-6.0)
[2022-07-11 09:03] LABS: Alanine Aminotransferase 28 IU/L (<35); Albumin 4.4 g/dL (3.5-5.0); Albumin Globulin Ratio 1.5 (1.0-2.8); Alkaline Phosphatase 47 U/L (38-126); Aspartate Aminotransferase 31 IU/L (14-36); BUN Creatinine Ratio 26.8 (6-22); Bilirubin Total 0.4 mg/dL (0.2-1.3); Blood Urea Nitrogen 19 mg/dL (7-17); Calcium 9.7 mg/dL (8.4-10.2); Carbon Dioxide 29 mmol/L (22-32); Chloride 102 mmol/L (98-107); Estimated Glomerular Filt Rate > 60 mL/min (>60); Globulin 2.9 g/dL (1.7-4.1); Glucose 122 mg/dL (80-110); HEMOLYSIS < 15 (0-50); Sodium 138 mmol/L (137-145); Total Protein 7.3 g/dL (6.3-8.2)
[2022-07-11 09:56] LABS: Free T4, Direct Thyroxine 0.99 ng/dL (0.78-2.19)
[2022-07-11 10:10] LABS: Thyroid Stimulating Hormone 1.65 uIU/mL (0.47-4.68)
== END ==
PROVIDERS: Family Provider Family Medicine; PCP Family Medicine; Referring Provider Family Medicine; Visit Provider Family Medicine
DX: Z00.00 Encounter for general adult medical examination without abnormal findings (principal); E03.9 Hypothyroidism, unspecified; E11.9 Type 2 diabetes mellitus without complications; E78.5 Hyperlipidemia, unspecified
CPT/HCPCS: 36415; 80053; 83036; 84439; 84443; 85025

== ENCOUNTER → 2022-07-28 10:52 | Outpatient (CLI) | payer OTHER, SELFPAY ==
[2022-03-28 11:10] VITALS: BMI 26.9
[2022-07-28 15:14] LABS: Microalbumin Urine Random 0.8 mg/dL (0-1.6)
[2022-07-28 15:15] LABS: Microalbumi Creatinin Ratio Ur 10.1 ug/mg CR (<30)
== END ==
PROVIDERS: Family Provider Family Medicine; PCP Family Medicine; Referring Provider Family Medicine; Visit Provider Family Medicine
DX: E78.5 Hyperlipidemia, unspecified (principal); I10 Essential (primary) hypertension; I25.10 Atherosclerotic heart disease of native coronary artery without angina pectoris
CPT/HCPCS: 82043; 82570

== ENCOUNTER → 2022-10-18 08:09 | Outpatient (CLI) | payer OTHER, SELFPAY ==
[2022-03-28 11:10] VITALS: BMI 26.9
[2022-10-18 11:53] LABS: Alanine Aminotransferase 29 IU/L (<35); Albumin 4.5 g/dL (3.5-5.0); Albumin Globulin Ratio 1.8 (1.0-2.8); Alkaline Phosphatase 57 U/L (38-126); Aspartate Aminotransferase 31 IU/L (14-36); BUN Creatinine Ratio 21.1 (6-22); Bilirubin Total 0.4 mg/dL (0.2-1.3); Blood Urea Nitrogen 15 mg/dL (7-17); Calcium 9.8 mg/dL (8.4-10.2); Carbon Dioxide 25 mmol/L (22-32); Chloride 103 mmol/L (98-107); Cholesterol 233 mg/dL (140-199); Estimated Glomerular Filt Rate > 60 mL/min (>60); Globulin 2.5 g/dL (1.7-4.1); Glucose 116 mg/dL (80-110); HDL Cholesterol 43 mg/dL (40-60); HEMOLYSIS < 15 (0-50); LDL Cholesterol Calculated 154 mg/dL (<100); Sodium 139 mmol/L (137-145); Triglycerides 178 mg/dL (35-150)
== END ==
PROVIDERS: Family Provider Family Medicine; PCP Family Medicine; Referring Provider Internal Medicine Cardiovascular Disease; Visit Provider Internal Medicine Cardiovascular Disease
DX: I10 Essential (primary) hypertension (principal); E78.5 Hyperlipidemia, unspecified; Z98.890 Other specified postprocedural states; Z86.79 Personal history of other diseases of the circulatory system
CPT/HCPCS: 36415; 80053; 80061

== ENCOUNTER → 2022-12-12 07:46 | Outpatient (CLI) | payer OTHER, SELFPAY ==
[2022-03-28 11:10] VITALS: BMI 26.9
[2022-12-12 09:05] LABS: Alanine Aminotransferase 35 IU/L (<35); Albumin 4.4 g/dL (3.5-5.0); Albumin Globulin Ratio 1.5 (1.0-2.8); Alkaline Phosphatase 54 U/L (38-126); Aspartate Aminotransferase 35 IU/L (14-36); Bilirubin Total 0.7 mg/dL (0.2-1.3); Bilirubin Unconjugated 0.4 mg/dL (0.0-1.1); Cholesterol 138 mg/dL (140-199); HDL Cholesterol 34 mg/dL (40-60); HEMOLYSIS 34 (0-50); LDL Cholesterol Calculated 65 mg/dL (<100); Total Protein 7.4 g/dL (6.3-8.2); Triglycerides 195 mg/dL (35-150)
== END ==
PROVIDERS: Family Provider Family Medicine; PCP Family Medicine; Referring Provider Internal Medicine Cardiovascular Disease; Visit Provider Internal Medicine Cardiovascular Disease
DX: E78.5 Hyperlipidemia, unspecified (principal)
CPT/HCPCS: 36415; 80061; 80076

== ENCOUNTER → 2022-12-13 09:19 | Outpatient (CLI) | payer OTHER, SELFPAY ==
[2022-03-28 11:10] VITALS: BMI 26.9
[2022-12-14 13:55] LABS: Fecal Immunochemical Test Negative (Negative)
== END ==
PROVIDERS: Family Provider Family Medicine; PCP Family Medicine; Referring Provider Family Medicine; Visit Provider Family Medicine
DX: Z12.11 Encounter for screening for malignant neoplasm of colon (principal)
CPT/HCPCS: 82274

== ENCOUNTER → 2023-01-20 09:14 | Outpatient (CLI) | payer OTHER, SELFPAY ==
[2022-03-28 11:10] VITALS: BMI 26.9
--- NOTE | 2023-01-20 | DI.ECHO.S_ITS ---
[facility] [address] [place]. [address] [facility] +---------+ Hospital +---------+ : : [id number] : : : : [place], [place] : : : : [id number] : : : : Phone: [phone]---------+ Echocardiogram Report + + :Name: MAKSIM NGUYEN Study Date: 01/20/2023 Height: 64 in : :[facility] ReadingLocation: Weight: 160 lb : : Gender: Female BSA: 1.8 m2 : :: 1950 Age: 72 yrs BP: 134/71 mmHg: :Reason For Study: MITRAL VALVE REPAIR : :Ordering Physician: RONAN, : :ADALI Performed By: OZZIE MEDELLIN : :Referring: ADALI FERRARO : + + Interpretation Summary The left ventricle is normal in size. Left ventricular systolic function is normal. There has been no significant change in LVEF since the previous exam. The right ventricle is normal in size and function. The posterior mitral leaflet is thickened and fixed consistent with prior mitral repair surgery. Peak E velocity about 1.68 m/s and mean gradient about 5 mmHg. Previously mean gradient about 3.4 mmHg. Associated trivial to mild mitral regurgitation. No hemodynamically significant mitral stenosis. The IVC is of normal diameter and collapses greater than 50% with a sniff. This suggests a low right atrial pressure of 3 mm Hg. Procedure: A two-dimensional transthoracic echocardiogram with color flow and Doppler was performed. The study quality was technically adequate. Comparison is made with the echocardiogram of . The patient was in sinus rhythm with heart rates between 59-72 bpm during the exam. Left Ventricle: The left ventricle is normal in size. Proximal septal thickening is noted. There is no echo evidence for significant left ventricular outflow tract obstruction. There is no thrombus. The ejection fraction is estimated to be 60-65%. Left ventricular systolic function is normal. There has been no significant change since the previous exam. There are no focal wall motion abnormalities. Diastolic function could not be accurately assessed due to confounding valvular disease. Right Ventricle: The right ventricle is normal in size and function. Atria: The left atrium is moderately dilated. There has been no significant change since the previous study. The right atrium is normal in size. There is no Doppler evidence for an interatrial shunt. Mitral Valve: The mitral valve chordae are thickened and/or calcified. The posterior mitral leaflet is thickened and fixed consistent with prior mitral repair surgery. No significant mitral valve stenosis. The mitral valve mean gradient is 5 mmHg. Peak E velocity about 1.68 m/s and mean gradient about 5 mmHg. Previously mean gradient about 3.4 mmHg. Associated trivial mitral regurgitation. No hemodynamically significant mitral stenosis. Trivial to mild MR. Aortic Valve: The aortic valve is trileaflet. The aortic valve opens well. The aortic valve is slightly calcified. There is no aortic valve stenosis. No aortic regurgitation is present. Tricuspid Valve: The tricuspid valve is normal. There is trace tricuspid regurgitation. The right ventricular systolic pressure is estimated to be at least 29 mmHg based on an estimated right atrial pressure of 3 mm Hg. Pulmonic Valve: The pulmonic valve leaflets are thin and pliable; valve motion is normal. There is no pulmonic valvular regurgitation. Great Vessels: The aortic root is normal size. The ascending aorta is normal in size. The IVC is of normal diameter and collapses greater than 50% with a sniff. This suggests a low right atrial pressure of 3 mm Hg. Pericardium/ Pleura There is no pericardial effusion. There is no pleural effusion. MMode/2D Measurements & Calculations LVIDd: 4.1 cm LVOT diam: 1.8 cm LVIDs: 2.8 cm Ao root diam: 3.5 cm FS: 31.7 % asc Aorta Diam: 3.1 cm IVSd: 1.1 cm Ao Arch Diam (Prox Trans): 3.0 cm LVPWd: 0.90 cm LV banegas. diameter/BSA (cm/m^2): 2.3 LV sys. diameter/BSA (cm/m^2): 1.6 LA A2 area: 19.0 cm2 RA long axis: 4.3 cm LA A4 area: 18.1 cm2 LA length (vol): 5.5 cm LA vol: 52.9 ml LA vol index: 29.7 ml/m2 LVLs ap4: 6.4 cm LVLd ap2: 7.1 cm LVLs ap2: 6.4 cm RV Mid_phl: 3.1 cm TAPSE_phl: 1.7 cm Doppler Measurements & Calculations Ao V2 max: 138.0 cm/sec LVOT Max Neville: 96.3 cm/sec Ao V2 mean: 96.8 cm/sec LV V1 max P.7 mmHg Ao max P.0 mmHg LV V1 VTI: 23.2 cm Ao mean P.0 mmHg ARIA(I,D): 1.7 cm2 Ao V2 VTI: 34.0 cm ARIA(V,D): 1.8 cm2 sev ratio: 0.68 ARIA indexed to BSA (cm^2/m^2): 0.98 MV E max nevilel: 168.0 cm/sec TR max neville: 254.0 cm/sec MV A max neville: 81.0 cm/sec TR max P.8 mmHg MV E/A: 2.1 PA V2 max: 93.1 cm/sec Med Peak E' Neville: 5.1 cm/sec PA V2 mean: 71.4 cm/sec E/E' med: 32.7 PA mean P.0 mmHg Lat Peak E' Neville: 11.4 cm/sec PA pr(Accel): 33.1 mmHg E/E' lat: 14.7 E/e' average: 23.7 MV dec time: 0.40 sec MV P1/2t: 115.2 msec MVA(VTI): 0.96 cm2 MV V2 mean: 102.0 cm/sec MV P1/2t max neville: 181.0 cm/sec MV mean P.0 mmHg MVA(P1/2t): 1.9 cm2 MV V2 VTI: 61.2 cm SV(LVOT): 59.0 ml AV VR_phl: 0.70 ARIA(VTI)/BSA_phl: 0.97 MV P1/2t-pr_phl: 116.0 msec Reading Physician:12:47 PM
== END ==
PROVIDERS: Family Provider Family Medicine; PCP Family Medicine; Referring Provider Internal Medicine Cardiovascular Disease; Visit Provider Internal Medicine Cardiovascular Disease
DX: Z98.890 Other specified postprocedural states (principal); Z09 Encounter for follow-up examination after completed treatment for conditions other than malignant neoplasm
CPT/HCPCS: 93306

== ENCOUNTER → 2023-02-02 07:58 | Outpatient (CLI) | payer OTHER, SELFPAY ==
[2022-03-28 11:10] VITALS: BMI 26.9
[2023-02-02 08:52] LABS: Hemoglobin A1C% w Est Avg Glu 6.3 % (4.0-6.0)
== END ==
PROVIDERS: Family Provider Family Medicine; PCP Family Medicine; Referring Provider Family Medicine; Visit Provider Family Medicine
DX: E11.9 Type 2 diabetes mellitus without complications (principal)
CPT/HCPCS: 36415; 83036

== ENCOUNTER → 2023-03-10 10:50 | Outpatient (CLI) | payer OTHER, SELFPAY ==
[2022-03-28 11:10] VITALS: BMI 26.9
[2023-03-10 11:31] LABS: Add Manual Diff / Slide Review NO; Basophils Absolute Auto 100 /uL (0-100); Basophils Percent Auto 0.5 % (0-2); Eosinophils Absolute Auto 100 /uL (0-450); Eosinophils Percent Auto 0.5 % (2-4); Hematocrit 40.6 % (36-46); Hemoglobin 14.1 g/dL (12.0-16.0); Lymphocytes Absolute Auto 2200 /uL (1100-4500); Lymphocytes Percent Auto 20.1 % (25-40); Mean Corpuscular HGB Conc 34.7 % (30-36); Mean Corpuscular Hemoglobin 30.3 PG (26-34); Mean Corpuscular Volume 87.2 fL (80-100); Monocytes Absolute Auto 600 /uL (0-900); Monocytes Percent Auto 5.5 % (3-14); Neutrophils Absolute Auto 8200 /uL (1500-7000); Neutrophils Percent Auto 73.4 % (50-75); Platelet Count 270 X10^3/uL (150-400); Red Blood Cell Count 4.66 X10^6/uL (4.0-5.2); Red Cell Distribution Width 13.2 % (11.6-14.8); White Blood Cell Count 11.2 X10^3/uL (4.5-11.0)
[2023-03-10 12:06] LABS: Alanine Aminotransferase 28 IU/L (<35); Albumin 4.4 g/dL (3.5-5.0); Albumin Globulin Ratio 1.7 (1.0-2.8); Alkaline Phosphatase 57 U/L (38-126); Aspartate Aminotransferase 27 IU/L (14-36); BUN Creatinine Ratio 24.1 (6-22); Bilirubin Total 0.5 mg/dL (0.2-1.3); Blood Urea Nitrogen 14 mg/dL (7-17); Calcium 9.9 mg/dL (8.4-10.2); Carbon Dioxide 29 mmol/L (22-32); Chloride 100 mmol/L (98-107); Estimated Glomerular Filt Rate > 60 mL/min (>60); Globulin 2.6 g/dL (1.7-4.1); Glucose 116 mg/dL (80-110); HEMOLYSIS < 15 (0-50); Potassium 3.9 mmol/L (3.4-5.1); Sodium 138 mmol/L (137-145)
== END ==
PROVIDERS: Family Provider Family Medicine; PCP Family Medicine; Referring Provider Family Medicine; Visit Provider Family Medicine
DX: E03.9 Hypothyroidism, unspecified (principal); I10 Essential (primary) hypertension
CPT/HCPCS: 36415; 80053; 85025

== ENCOUNTER 2023-05-17 10:18 | Day surgery (SDC) | payer OTHER, SELFPAY ==
[2022-03-28 11:10] VITALS: BMI 26.9
--- NOTE | 2023-05-17 | PATH_ITS ---
[facility] Accession Number: [id number] No. of containers..01 Tissue . 01 Material submitted: . colon - TRANSVERSE COLON POLYP . 01 Diagnosis: Transverse Colon, Polypectomy: Inflammatory polyp. Negative for dysplasia and malignancy. MRV 05/26/2023 1225 Local . 01 Electronically signed: . Melissa Spencer MD, Pathologist NPI- [id number] . 01 Gross description: . The specimen is received in formalin labeled with the patient's name, , and transverse colon polyp, and consists of a single howell soft tissue fragment measuring 0.5 cm in greatest dimension. Submitted entirely in cassette A1. ([id number]) /SEAMUS 05/24/2023 1047 Local . 01 Pathologist provided ICD-10: K63.5 . 01 CPT . 179023 Specimen Comment: A courtesy copy of this report has been sent to [phone] Performed at: 01 [facility] [address] [place] [address] [address] [facility], [place], [place] [id number] MD Mykel Jean-Baptiste MD Phone: [phone]
[2023-05-17 10:39] VITALS: BMI 27.4
[2023-05-17] MEDS: LACTATED RINGERS 1,000 ML 42 ML IV (10:53)
[2023-05-17 10:58] VITALS: BP 148/78; PULSE 79; RESP 18; TEMP 36.6; O2SAT 98
--- NOTE | 2023-05-17 11:41 | P.HP_ITS ---
History of Present Illness History of Present Illness Date Patient Seen: 05/17/23 Time Patient Seen: 11:41 [place] [facility] [place]ative: Ann-Marie is a 72-year-old woman who is here for colonoscopy. Her last 1 was about 20 years ago. She has no known family history of colon cancer. She has no complaints related to her abdomen or her bowel function. [facility] Medical History Abscess Acquired spondylolysis of lumbar spine Arthritis (Unknown) Cervical somatic dysfunction Chronic neck and back pain Chronic pain of right upper extremity Cranial somatic dysfunction Elevated liver function tests Hearing loss (Unknown) Hematochezia due to medication History of atrial fibrillation (Unknown) Hyperlipemia (Unknown) Hypertension (Unknown) Hypothyroidism (Unknown) Neuropathy Osteopenia (~03/2015) Osteoporosis (~04/2017) Preventative health care Segmental and somatic dysfunction of rib cage Sinus drainage Spondylolysis, cervical region Status post left heart catheterization (09/2014) Thoracic region somatic dysfunction Type 2 diabetes mellitus Upper extremity somatic dysfunction Well adult exam Surgical History History of ear surgery History of tonsillectomy History of tympanoplasty Hx of left cataract extraction (2017) Hx of mitral valve repair (11/2014) Status post cervical spinal fusion Status post dilation and curettage Status post hysteroscopy (01/22/16) Family History Brother Psoriasis DM w/o complication type II Essential hypertension Other and unspecified hyperlipidemia Obese Father DM w/o complication type II Heart disease CVA (cerebral infarction) Mother Parkinsons disease Sister Other and unspecified hyperlipidemia Essential hypertension Sister Other and unspecified hyperlipidemia Essential hypertension Social History household members: spouse Smoking Status: Never smoker second hand exposure: No alcohol intake: never substance use type: does not use eating out: rarely or never Type(s) of exercise: walking Meds Home Medications and Allergies Home Medications Medication Instructions Recorded Confirmed Type B-complex with vitamin C 1 tab PO DAILY 05/22/18 05/17/23 History cholecalciferol (vitamin D3) 50 2,000 unit PO DAILY 05/22/18 05/17/23 History mcg (2,000 unit) capsule blood-glucose meter #1 ea 09/29/20 03/10/23 Rx lancets 33 gauge (BD Ultra Fine #100 ea 09/29/20 03/10/23 Rx Lancets) blood sugar diagnostic (Blood #200 ea 11/16/20 03/10/23 Rx Glucose Test strips) alendronate 70 mg tablet See Rx Instructions .Route 12/13/22 05/17/23 Rx .COMPLEX #12 tabs lisinopril 10 See Rx Instructions .Route 12/13/22 03/10/23 Rx mg-hydrochlorothiazide 12.5 mg .COMPLEX #90 tabs tablet levothyroxine 75 mcg tablet See Rx Instructions .Route 01/10/23 03/10/23 Rx .COMPLEX #90 tabs CoQ10 PO 02/13/23 03/10/23 History aspirin 81 mg chewable tablet 162 mg PO DAILY 02/13/23 05/17/23 History ezetimibe 10 mg tablet See Rx Instructions .Route 03/02/23 03/10/23 Rx .COMPLEX #90 tabs metoprolol succinate 25 mg See Rx Instructions .Route 03/02/23 03/10/23 Rx tablet,extended release 24 hr .COMPLEX #180 tabs Allergies Allergy/AdvReac Type Severity Reaction Status Date / Time adhesive tape Allergy Severe Redness, Verified 03/10/23 10:17 itching amoxicillin [From AMOXIL] Allergy Severe rash Verified 03/10/23 10:17 hydrocodone [HYDROCODONE] Allergy Severe ITCHY RASH Verified 03/10/23 10:17 Sulfa (Sulfonamide Allergy Severe RASH Verified 03/10/23 10:17 Antibiotics) [SULFA (SULFONAMIDE ANTIBIOTICS)] codeine [CODEINE] AdvReac Intermediate NAUSEA, Verified 03/10/23 10:17 VOMITING fenofibrate [FENOFIBRATE] AdvReac Mild AFFECTED Verified 03/10/23 10:17 HER LIVER simvastatin [SIMVASTATIN] AdvReac Mild AFFECTED Verified 03/10/23 10:17 HER LIVER Exam Vital Signs (past 8 hours): - 05/17/23 10:58 Temperature 97.8 F Pulse Rate 79 Respiratory Rate 18 Blood Pressure 148/78 H Pulse Oximetry 98 Oxygen Delivery Method Room Air Oxygen Delivery Method Room Air Const General: healthy appearing Assessment & Plan Assessment and plan (1) Colon cancer screening: Status: Acute Plan We reviewed the risks and benefits of colonoscopy for colon cancer screening and she would like to proceed.
[2023-05-17 12:18] VITALS: BP 111/59; PULSE 85; RESP 16; TEMP 36.2; O2SAT 98
--- NOTE | 2023-05-17 12:20 | PM.OP.COLON ---
Operative Date/Time/Diagnoses Date of procedure: 05/17/23 Time of procedure: 12:20 Pre-op diagnosis: Colon cancer screening Post-op diagnosis: same Procedure & Clinicians Study performed: Colonoscopy Same procedure as scheduled: Yes Surgeon: Ranjith Mosley Procedure Notes Procedure in detail: Surgeon: Ranjith Mosley MD Anesthesia: Adam Kennedy CRNA Procedure: The patient was brought to the endoscopy suite, placed in left lateral decubitus position. The patient was connected to monitoring devices. A time-out was performed. Sedation was administered. Once the patient was adequately sedated, a digital rectal exam was performed and was normal. The scope was then inserted and advanced to the cecum where the appendiceal orifice was identified and photographed. The scope was then slowly withdrawn over greater than 6 minutes. The mucosa was thoroughly inspected. There was a 7 mm polyp distal transverse colon removed with a cold snare. There were rare scattered diverticula in the sigmoid colon The scope was retroflexed in the rectum. No other abnormalities were seen. The scope was straightened and removed. The patient was awakened and brought to recovery. Scope withdrawal time: 12 minutes Sedation time: 21 minutes EBL: 5 mL Findings: 7 mm polyp in the distal transverse colon and rare scattered diverticula Post-procedure Disposition: PACU
[2023-05-17 12:24] VITALS: BP 110/67; PULSE 78; RESP 16; O2SAT 97
[2023-05-17 12:30] VITALS: BP 114/57; PULSE 72; RESP 18; TEMP 36.3; O2SAT 96
[2023-05-17 12:33] VITALS: BP 128/62; PULSE 68; RESP 14; O2SAT 97
[2023-05-17 12:53] VITALS: BP 113/65; PULSE 67; RESP 16; O2SAT 98
== END 2023-05-17 13:01 | disposition home or self-care (01) ==
PROVIDERS: Family Provider Family Medicine; PCP Family Medicine; Referring Provider Surgery; Visit Provider Surgery
PROC: 0DJD8ZZ Inspection of Lower Intestinal Tract, Via Natural or Artificial Opening Endoscopic (ICD-10-PCS; CPT 45378; principal; 2023-05-17 11:30)
DX: Z12.11 Encounter for screening for malignant neoplasm of colon (principal); K57.30 Diverticulosis of large intestine without perforation or abscess without bleeding; K51.40 Inflammatory polyps of colon without complications
CPT/HCPCS: 45385

== ENCOUNTER → 2023-05-26 15:17 | Outpatient (CLI) | payer OTHER, SELFPAY ==
[2022-03-28 11:10] VITALS: BMI 26.9
--- NOTE | 2023-05-26 15:18 | DI.RAD.S_ITS ---
PROCEDURE: XR LUMBAR SPINE 2-3V INDICATIONS: f/u low back pain TECHNIQUE: 3 views of the lumbar spine were acquired. COMPARISON: [facility], CR, XR LUMBAR SPINE 2-3V, 09/28/2020, 9:07. FINDINGS: Bones: 5 [id number] vertebrae are present. There is trace retrolisthesis of L5 on S1. Moderate disc and foraminal narrowing are present L5-S1. Bridging anterior osteophytes are present L3-4, L4-5. Multilevel mild degenerative disc space narrowing as well as minimal foraminal narrowing at L4-5. Appearance is relatively stable noting mild progression at L5-S1. No vertebral body compression fractures. No suspicious bony lesions. Soft tissues: Overlying bowel gas pattern is normal. No suspicious soft tissue calcifications. IMPRESSION: Degenerative changes most progressive at L5-S1. Dictated by: Sharon Bowser M.D. on 05/26/2023 at 19:36 Approved by: Sharon Bowser M.D. on 05/26/2023 at 19:37
== END ==
PROVIDERS: Family Provider Family Medicine; PCP Family Medicine; Referring Provider Family Medicine; Visit Provider Family Medicine
DX: M47.817 Spondylosis without myelopathy or radiculopathy, lumbosacral region (principal); M54.50 Low back pain, unspecified
CPT/HCPCS: 72100

== ENCOUNTER → 2023-06-30 15:52 | Outpatient (RCR) | payer OTHER, SELFPAY ==
[2022-01-17 11:29] VITALS: BMI 26.9
--- NOTE | 2022-03-10 13:54 | PT.OIE ---
Current Diagnoses Other spondylosis with radiculopathy, cervical region (03/10/22) Spinal stenosis, cervical region (03/10/22) Past Medical History (Last Reviewed 01/18/22 @ 07:42 by Aníbal Seals PA-C) Abscess Acquired spondylolysis of lumbar spine Arthritis (Unknown) Elevated liver function tests Hearing loss (Unknown) History of atrial fibrillation (Unknown) History of ear surgery History of tonsillectomy History of tympanoplasty Hx of left cataract extraction (2017) Hx of mitral valve repair (11/2014) Hyperlipemia (Unknown) Hypertension (Unknown) Hypothyroidism (Unknown) Neuropathy Osteopenia (~03/2015) Osteoporosis (~04/2017) Preventative health care Sinus drainage Spondylolysis, cervical region Status post left heart catheterization (09/2014) Type 2 diabetes mellitus Past Surgical History (Last Reviewed 01/18/22 @ 07:42 by Aníbal Seals PA-C) History of ear surgery History of tonsillectomy History of tympanoplasty Hx of left cataract extraction (2017) Hx of mitral valve repair (11/2014) Status post dilation and curettage Status post hysteroscopy (01/22/16) Visit Care Team Role Provider Type Varun Jose DO Attending Provider Physician Family Provider Primary Care Provider Referring Provider Specialty: [facility] Address: [address] [place] [address], [facility] Email: [email or web address] Physical Therapy Initial Evaluation PT-OP-A Visit Information Start: 03/08/22 16:31 Freq: Status: Active Protocol: Document 03/10/22 09:49 [facility] (Rec: 03/10/22 11:13 SAK [id number]) Out-Patient Physical Therapy Visit Information Visit Information Visit Type Initial Evaluation Visit Start Time 09:49 Visit Stop Time 10:40 Total Visit Minutes 51 Visit Number 1 Evaluation Information Evaluation Date 03/10/22 Precautions Precautions anterior cervical fusion C4-6 with metal plate and screws PT-OP-B Current Condition Start: 03/08/22 16:31 Freq: Status: Active Protocol: Document 03/10/22 09:49 [facility]AK (Rec: 03/10/22 11:13 SAK [id number]) Current Condition History of Current Condition Onset Date 01/17/22 Current Complaints neck and upper trap pain. History of Current Condition discectomy x 2, ant fusion C45 , C56 with metal removal of bone spur. after 15 years of neck pain with radicular symtpms into right UE, with numbness thumb and first finger. At this time has pain in the back of her neck and upper traps. Pain no better in neck and upper traps. having headaches but radicular symptoms gone. Also reports burning pain lower neck. Saw doctor 2 week post op, was told no turning of head or bending . Saw PA at 6 weeks; don't twist or bend, minimize lifting. Sleeps on her side. Doesn't drive, not able to turn her head adequately to look behind. Left shoulder pain as well. No further appointment with doctor. Prior Treatments and Tests PT not helpful previously, states she was mostly just given exercises, no hands on work. Did have massage therapy which helped for a day then paoin returned. 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 PT-OP-C Subjective Start: 03/08/22 16:31 Freq: Status: Active Protocol: Document 03/10/22 09:49 [facility] (Rec: 03/10/22 11:13 [facility] [id number]) Patient Questionnaires Neck Disability Index NDI Score 50 OP-PT Pain Assessment Pain Assessment Grid Paper Pain Assessment Grid Completed Yes Location Posterior Neck Pain Location Details neck and upper trap reg Intensity 6 Scale Used Numeric (0 - 10) Description Aching,Burning,Chronic,Tender Frequency Constant Pain Aggravating Factors Activity Pain Alleviating Factors Cold PT-OP-F Manual Assessment Start: 03/08/22 16:31 Freq: Status: Active Protocol: Document 03/10/22 09:49 [facility] (Rec: 03/10/22 11:13 [facility] [id number]) Manual Assessments Joint Mobility Assessment Joint Mobility Assessment decreased joint mobility upper thoracic spine PT-OP-J Posture/Palpation/Skin Start: 03/08/22 16:31 Freq: Status: Active Protocol: Document 03/10/22 09:49 [facility] (Rec: 03/10/22 11:13 [facility] [id number]) Posture Evaluation Position Standing Head/C-Spine Posture Forward Head T-Spine Posture Increased Kyphosis L-Spine Posture Increased Lordosis Shoulder Posture (L) Rounded,(R) Rounded Scapula Posture (L) Protracted,(R) Protracted Arm Posture (L) Internally Rotated,(R) Internally Rotated Pelvis Posture Anteriorly Tilted Palpation Assessment Location One Palpation Location c/s, upper traps Palpation Findings Soft Tissue Tightness,Muscle Guarding,Tenderness,Trigger Point PT-OP-K Range of Motion Start: 03/08/22 16:31 Freq: Status: Active Protocol: Document 03/10/22 09:49 [facility] (Rec: 03/10/22 11:13 [facility] [id number]) Cervical Spine Range of Motion Cervical Spine Active Testing Position Standing Flexion 45 Extension 10 Rotation Left 15 Rotation Right 5 Lateral Flexion Left 10 Lateral Flexion Right 10 ROM Limitations Soft Tissue Tightness,Bony Restriction,Pain Comments encouraged only very gentle movement Shoulder Goniometric Range of Motion Shoulder Left Flexion 155 Horizontal Adduction 20 Internal Rotation Behind Back (text) T12 Right Shoulder ROM WFL Yes Internal Rotation Behind Back (text) T7 Shoulder ROM Limitations Shoulder ROM Limitations Soft Tissue Tightness,Pain PT-OP-M Strength Start: 03/08/22 16:31 Freq: Status: Active Protocol: Document 03/10/22 09:49 [facility] (Rec: 03/10/22 11:13 [facility] [id number]) Cervical Spine Strength Cervical Spine Manual Muscle Testing Comments no MMT due to recent surgery with high level of pain Shoulder Strength Shoulder Manual Muscle Testing riki Comments has antigravity strength within available ROM but no MMT due to recent surgery PT-OP-Q Treatments Start: 03/08/22 16:31 Freq: Status: Active Protocol: Document 03/10/22 09:49 [facility] (Rec: 03/10/22 11:13 [facility] [id number]) Manual Therapy Treatment Other Other Manual Treatments tape test done for kinesiotape tolerance on right forearm; patient instructed to remove if develops itchiness or rash. Self-Care/Home Management Treatment Education Patient Education Body Mechanics,Home Exercise Program,Posture Other Education modified patient shoulder blade squeezes to inhibit UT instructed in supine posture press with submax, gentle effort bed positioning for spinal support instructed in potential contribution of habitual postures, positioning, and movement to musculoskeletal pain, pay attention to how she positions and moves her body habitually PT-OP-R Modalities Start: 03/08/22 16:31 Freq: Status: Active Protocol: Document 03/10/22 09:49 [facility] (Rec: 03/10/22 11:13 [facility] [id number]) Hot Pack/Cold Pack Treatment Cold Pack Location c/s Patient Position Sitting Treatment Duration (minutes) 10 Patient Tolerance Good Comments chair back against the wall, pillow behind head PT-OP-T Assessment and Plan Start: 03/08/22 16:31 Freq: Status: Active Protocol: Document 03/10/22 09:49 [facility] (Rec: 03/10/22 11:13 [facility] [id number]) Physical Therapy Assessment Rehab Potential Rehabilitation Potential Excellent Evaluation Complexity Number of Personal Factors/Comorbidities 1-2 Number of Body Systems Impaired 3 Clinical Presentation at Evaluation Evolving Impairments Impairments Activity Tolerance,Pain, Posture,Soft Tissue Mobility Goals Four Impairment postural dysfunction contributing to persistent neck pain Short Term Goal (STG) patient to be instructed in neutral posture, correct body mechanics for usual activities and demonstrate good understanding STG Duration 04/09/22 Sales Broker Goal (LTG) Patient to demonstrate improvement in habitual posture, verbalize and demonstrate correction of activities utilizing correct alignment and body mechanics for neck protection and health . LTG Duration 05/09/22 Three Impairment patient unable to drive due to pain and limited neck motion Sales Broker Goal (LTG) Decrease pain and improve mobility sufficient to allow patient to return to safe driving LTG Duration 05/09/22 Two Impairment sleep interrupted by pain Short Term Goal (STG) patient to be instrsucted in correct body support and positioning for spinal health in supine and sidelying for improved sleep STG Duration 04/09/22 Sales Broker Goal (LTG) Patient able to resume normal sleep pattern, without waking due to neck pain as is typical at this time LTG Duration 05/09/22 One Impairment neck and upper trap pain constant 04/29 Sales Broker Goal (LTG) Decrease pain by at least 50% with patient able to resume prior level of function without an increase in pain LTG Duration 05/09/22 Assessment Summary Assessment Patient presents to PT s/p C45 and C56 discectomies and fusion and removal of bone spur C5. She is reporting relief of radicular symptoms into right UE, but persistent high level of pain in cervical spine and upper trap region as well as frequent headaches. She has returned to walking on her treadmill about 30 min per day gradually, but is not doing any other exercises. Evaluation reveals postural dysfunction, weakness, high muscle tension throughout c/s, scapular region, and UT. This is limiting her ability to do her usual activities indicated by neck disability index score of 50%. Feel she would benefit from physical therapy for postural instruction and gentle postural correction exercises, ther ex, and manual techniques to decrease pain and muscle tension, and help her to return to more active lifestyle with less pain. Physical Therapy Plan Frequency and Duration Frequency of Treatment 2x/Week Duration of Treatment 8 weeks Plan of Care Start Date 03/10/22 Plan of Care End Date 05/09/22 Therapeutic Interventions Therapeutic Interventions Aquatic Therapy,Home Exercise Program,Manual Therapy, Neuromuscular Re-education, Patient/Caregiver Education, Self-Care/Home Management,Soft Tissue Mobilization,Taping, Therapeutic Activities, Therapeutic Exercises Modalities Cold Pack/Ice Massage Next Visit Focus/Plan Next Note Type Treatment Note Next Visit Plan review HEP, review neutral posture, add row and shoulder extension, manual therapy for pec stretching, soft tissue mobilization to decrease muscle tension c/s and UT, gentle upper thoracic mobilization. consider kinesiotape if able to tolerate kinesiotape.
--- NOTE | 2022-03-10 13:54 | PT.OPPOC ---
Physical, Occupational & Speech Therapy At [facility] Current Diagnoses Other spondylosis with radiculopathy, cervical region (03/10/22) Spinal stenosis, cervical region (03/10/22) Visit Care Team Role Provider Type Varun Jose DO Attending Provider Physician Family Provider Primary Care Provider Referring Provider Specialty: Family Practice Address: [address] [place] [address], [facility] Email: [email or web address] Of Care PT-OP-T Assessment and Plan Start: 03/08/22 16:31 Freq: Status: Active Protocol: Document 03/10/22 09:49 [facility] (Rec: 03/10/22 11:13 [facility] [id number]) Physical Therapy Assessment Rehab Potential Rehabilitation Potential Excellent Evaluation Complexity Number of Personal Factors/Comorbidities 1-2 Number of Body Systems Impaired 3 Clinical Presentation at Evaluation Evolving Impairments Impairments Activity Tolerance,Pain, Posture,Soft Tissue Mobility Goals Four Impairment postural dysfunction contributing to persistent neck pain Short Term Goal (STG) patient to be instructed in neutral posture, correct body mechanics for usual activities and demonstrate good understanding STG Duration 04/09/22 Retail Sales Specialist Goal (LTG) Patient to demonstrate improvement in habitual posture, verbalize and demonstrate correction of activities utilizing correct alignment and body mechanics for neck protection and health . LTG Duration 05/09/22 Three Impairment patient unable to drive due to pain and limited neck motion [facility] Goal (LTG) Decrease pain and improve mobility sufficient to allow patient to return to safe driving LTG Duration 05/09/22 Two Impairment sleep interrupted by pain Short Term Goal (STG) patient to be instrsucted in correct body support and positioning for spinal health in supine and sidelying for improved sleep STG Duration 04/09/22 [facility] Goal (LTG) Patient able to resume normal sleep pattern, without waking due to neck pain as is typical at this time LTG Duration 05/09/22 One Impairment neck and upper trap pain constant 04/29 [facility] Goal (LTG) Decrease pain by at least 50% with patient able to resume prior level of function without an increase in pain LTG Duration 05/09/22 Assessment Summary Assessment Patient presents to PT s/p C45 and C56 discectomies and fusion and removal of bone spur C5. She is reporting relief of radicular symptoms into right UE, but persistent high level of pain in cervical spine and upper trap region as well as frequent headaches. She has returned to walking on her treadmill about 30 min per day gradually, but is not doing any other exercises. Evaluation reveals postural dysfunction, weakness, high muscle tension throughout c/s, scapular region, and UT. This is limiting her ability to do her usual activities indicated by neck disability index score of 50%. Feel she would benefit from physical therapy for postural instruction and gentle postural correction exercises, ther ex, and manual techniques to decrease pain and muscle tension, and help her to return to more active lifestyle with less pain. Physical Therapy Plan Frequency and Duration Frequency of Treatment 2x/Week Duration of Treatment 8 weeks Plan of Care Start Date 03/10/22 Plan of Care End Date 05/09/22 Therapeutic Interventions Therapeutic Interventions Aquatic Therapy,Home Exercise Program,Manual Therapy, Neuromuscular Re-education, Patient/Caregiver Education, Self-Care/Home Management,Soft Tissue Mobilization,Taping, Therapeutic Activities, Therapeutic Exercises Modalities Cold Pack/Ice Massage Next Visit Focus/Plan Next Note Type Treatment Note Next Visit Plan review HEP, review neutral posture, add row and shoulder extension, manual therapy for pec stretching, soft tissue mobilization to decrease muscle tension c/s and UT, gentle upper thoracic mobilization. consider kinesiotape if able to tolerate kinesiotape. Plan of Care Dates Plan of Care Start Date 03/10/22 Plan of Care End Date 05/09/22 Electronically Signed by: Amanda Lopez, PT 03/10/22 [id number] If you are in agreement with this Plan of Care, please return a signed and dated copy. I have reviewed this Plan of Care and certify that the skilled therapy services above are required to meet the patient?s needs. Physician Signature Date Printed Name and Credentials Clinical Instructor Signature Printed Name and Credentials
--- NOTE | 2022-03-10 13:55 | PT.OPPOC ---
Physical, Occupational & Speech Therapy At [facility] Current Diagnoses Other spondylosis with radiculopathy, cervical region (03/10/22) Spinal stenosis, cervical region (03/10/22) Visit Care Team Role Provider Type Varun Jose DO Attending Provider Physician Family Provider Primary Care Provider Referring Provider Specialty: Family Practice Address: [address] [place] [address], [facility] Email: [email or web address] Plan Of Care PT-OP-T Assessment and Plan Start: 03/08/22 16:31 Freq: Status: Active Protocol: Document 03/10/22 09:49 [facility] (Rec: 03/10/22 11:13 [facility] [id number]) Physical Therapy Assessment Rehab Potential Rehabilitation Potential Excellent Evaluation Complexity Number of Personal Factors/Comorbidities 1-2 Number of Body Systems Impaired 3 Clinical Presentation at Evaluation Evolving Impairments Impairments Activity Tolerance,Pain, Posture,Soft Tissue Mobility Goals Four Impairment postural dysfunction contributing to persistent neck pain Short Term Goal (STG) patient to be instructed in neutral posture, correct body mechanics for usual activities and demonstrate good understanding STG Duration 04/09/22 Financial Services Rep Goal (LTG) Patient to demonstrate improvement in habitual posture, verbalize and demonstrate correction of activities utilizing correct alignment and body mechanics for neck protection and health . LTG Duration 05/09/22 Three Impairment patient unable to drive due to pain and limited neck motion Group Home Goal (LTG) Decrease pain and improve mobility sufficient to allow patient to return to safe driving LTG Duration 05/09/22 Two Impairment sleep interrupted by pain Short Term Goal (STG) patient to be instrsucted in correct body support and positioning for spinal health in supine and sidelying for improved sleep STG Duration 04/09/22 Group Home Goal (LTG) Patient able to resume normal sleep pattern, without waking due to neck pain as is typical at this time LTG Duration 05/09/22 One Impairment neck and upper trap pain constant 04/29 Group Home Goal (LTG) Decrease pain by at least 50% with patient able to resume prior level of function without an increase in pain LTG Duration 05/09/22 Assessment Summary Assessment Patient presents to PT s/p C45 and C56 discectomies and fusion and removal of bone spur C5. She is reporting relief of radicular symptoms into right UE, but persistent high level of pain in cervical spine and upper trap region as well as frequent headaches. She has returned to walking on her treadmill about 30 min per day gradually, but is not doing any other exercises. Evaluation reveals postural dysfunction, weakness, high muscle tension throughout c/s, scapular region, and UT. This is limiting her ability to do her usual activities indicated by neck disability index score of 50%. Feel she would benefit from physical therapy for postural instruction and gentle postural correction exercises, ther ex, and manual techniques to decrease pain and muscle tension, and help her to return to more active lifestyle with less pain. Physical Therapy Plan Frequency and Duration Frequency of Treatment 2x/Week Duration of Treatment 8 weeks Plan of Care Start Date 03/10/22 Plan of Care End Date 05/09/22 Therapeutic Interventions Therapeutic Interventions Aquatic Therapy,Home Exercise Program,Manual Therapy, Neuromuscular Re-education, Patient/Caregiver Education, Self-Care/Home Management,Soft Tissue Mobilization,Taping, Therapeutic Activities, Therapeutic Exercises Modalities Cold Pack/Ice Massage Next Visit Focus/Plan Next Note Type Treatment Note Next Visit Plan review HEP, review neutral posture, add row and shoulder extension, manual therapy for pec stretching, soft tissue mobilization to decrease muscle tension c/s and UT, gentle upper thoracic mobilization. consider kinesiotape if able to tolerate kinesiotape. Plan of Care Dates Plan of Care Start Date 03/10/22 Plan of Care End Date 05/09/22 Electronically Signed by: Amanda Lopez, PT 03/10/22 9646 If you are in agreement with this Plan of Care, please return a signed and dated copy. I have reviewed this Plan of Care and certify that the skilled therapy services above are required to meet the patient?s needs. Physician Signature Date Printed Name and Credentials Clinical Instructor Signature Printed Name and Credentials
--- NOTE | 2022-03-15 12:16 | PT.OTN ---
Current Diagnoses Other spondylosis with radiculopathy, cervical region (03/15/22) Spinal stenosis, cervical region (03/15/22) Physical Therapy Treatment Note PT-OP-A Visit Information Start: 03/08/22 16:31 Freq: Status: Active Protocol: Document 03/15/22 11:15 [facility] (Rec: 03/15/22 12:15 [facility] [id number]) Out-Patient Physical Therapy Visit Information Visit Information Visit Type Treatment Note Visit Start Time 11:15 Visit Stop Time 12:15 Total Visit Minutes 60 Visit Number 2 Evaluation Information Evaluation Date 03/10/22 Precautions Precautions anterior cervical fusion C4-6 with metal plate and screws PT-OP-B Current Condition Start: 03/08/22 16:31 Freq: Status: Active Protocol: Document 03/15/22 11:15 [facility] (Rec: 03/15/22 12:15 [facility] [id number]) Current Condition History of Current Condition Onset Date 01/17/22 Current Complaints neck and upper trap pain. History of Current Condition discectomy x 2, ant fusion C45 , C56 with metal removal of bone spur. after 15 years of neck pain with radicular symtpms into right UE, with numbness thumb and first finger. At this time has pain in the back of her neck and upper traps. Pain no better in neck and upper traps. having headaches but radicular symptoms gone. Also reports burning pain lower neck. Saw doctor 2 week post op, was told no turning of head or bending . Saw PA at 6 weeks; don't twist or bend, minimize lifting. Sleeps on her side. Doesn't drive, not able to turn her head adequately to look behind. Left shoulder pain as well. No further appointment with doctor. Prior Treatments and Tests PT not helpful previously, states she was mostly just given exercises, no hands on work. Did have massage therapy which helped for a day then deepak returned. Future Testing and Treatments Planned No further return visits to doctor PT-OP-C Subjective Start: 03/08/22 16:31 Freq: Status: Active Protocol: Document 03/15/22 11:15 [facility] (Rec: 03/15/22 12:15 [facility] [id number]) OP-PT Subjective Patient Comments Patient Comments Doing exercises 2x/day, read through Posture, Get it Straight book. Has done triangle and goal post presses as well. Reports some muscle soreness mid back. No change in pain. Negative tape test; sl redness that went away a few min after removing. Wants to try kinesiotape. PT-OP-F Manual Assessment Start: 03/08/22 16:31 Freq: Status: Active Protocol: Document 03/10/22 09:49 [facility] (Rec: 03/10/22 11:13 [facility] [id number]) Manual Assessments Joint Mobility Assessment Joint Mobility Assessment decreased joint mobility upper thoracic spine PT-OP-J Posture/Palpation/Skin Start: 03/08/22 16:31 Freq: Status: Active Protocol: Document 03/10/22 09:49 [facility] (Rec: 03/10/22 11:13 [facility] [id number]) Posture Evaluation Position Standing Head/C-Spine Posture Forward Head T-Spine Posture Increased Kyphosis L-Spine Posture Increased Lordosis Shoulder Posture (L) Rounded,(R) Rounded Scapula Posture (L) Protracted,(R) Protracted Arm Posture (L) Internally Rotated,(R) Internally Rotated Pelvis Posture Anteriorly Tilted Palpation Assessment Location One Palpation Location c/s, upper traps Palpation Findings Soft Tissue Tightness,Muscle Guarding,Tenderness,Trigger Point PT-OP-K Range of Motion Start: 03/08/22 16:31 Freq: Status: Active Protocol: Document 03/10/22 09:49 [facility] (Rec: 03/10/22 11:13 [facility] [id number]) Cervical Spine Range of Motion Cervical Spine Active Testing Position Standing Flexion 45 Extension 10 Rotation Left 15 Rotation Right 5 Lateral Flexion Left 10 Lateral Flexion Right 10 ROM Limitations Soft Tissue Tightness,Bony Restriction,Pain Comments encouraged only very gentle movement Shoulder Goniometric Range of Motion Shoulder Left Flexion 155 Horizontal Adduction 20 Internal Rotation Behind Back (text) T12 Right Shoulder ROM WFL Yes Internal Rotation Behind Back (text) T7 Shoulder ROM Limitations Shoulder ROM Limitations Soft Tissue Tightness,Pain PT-OP-M Strength Start: 03/08/22 16:31 Freq: Status: Active Protocol: Document 03/10/22 09:49 [facility] (Rec: 03/10/22 11:13 [facility] [id number]) Cervical Spine Strength Cervical Spine Manual Muscle Testing Comments no MMT due to recent surgery with high level of pain Shoulder Strength Shoulder Manual Muscle Testing riki Comments has antigravity strength within available ROM but no MMT due to recent surgery PT-OP-Q Treatments Start: 03/08/22 16:31 Freq: Status: Active Protocol: Document 03/15/22 11:15 [facility] (Rec: 03/15/22 12:15 [facility] [id number]) Therapeutic Exercises Supine Exercises goal post Reps/Minutes 5x triangle press Reps/Minutes 5x posture press Reps/Minutes 5x Sitting Exercises shoulder blade squeeze Reps/Minutes 5x shoulder shrugs Reps/Minutes 5x Manual Therapy Treatment Soft Tissue Mobilization 1 Body Location c/s, UT, LS Mobilization Type Myofascial Release,Strumming, Sustained Pressure,Trigger Point Release Intensity/Depth Moderate Body Position Hooklying Taping UT riki Treatment Focus inhibition, pain relief Type of Tape Kinesio Tape Skin Inspection intact Comments I strip insertion to origin riki Self-Care/Home Management Treatment Education Patient Education Body Mechanics,Home Exercise Program,Posture Other Education remove kinesiotape if uncomfortable, itchy, red PT-OP-R Modalities Start: 03/08/22 16:31 Freq: Status: Active Protocol: Document 03/15/22 11:15 [facility] (Rec: 03/15/22 12:15 [facility] [id number]) Hot Pack/Cold Pack Treatment moist heat Location c/s, t/s Patient Position Hooklying Treatment Duration (minutes) 15 Patient Tolerance Good PT-OP-T Assessment and Plan Start: 03/08/22 16:31 Freq: Status: Active Protocol: Document 03/15/22 11:15 [facility] (Rec: 03/15/22 12:15 [facility] [id number]) Physical Therapy Assessment Goals Four Impairment postural dysfunction contributing to persistent neck pain Short Term Goal (STG) patient to be instructed in neutral posture, correct body mechanics for usual activities and demonstrate good understanding STG Duration 04/09/22 Leather Dresser Goal (LTG) Patient to demonstrate improvement in habitual posture, verbalize and demonstrate correction of activities utilizing correct alignment and body mechanics for neck protection and health . LTG Duration 05/09/22 Three Impairment patient unable to drive due to pain and limited neck motion Leather Dresser Goal (LTG) Decrease pain and improve mobility sufficient to allow patient to return to safe driving LTG Duration 05/09/22 Two Impairment sleep interrupted by pain Short Term Goal (STG) patient to be instrsucted in correct body support and positioning for spinal health in supine and sidelying for improved sleep STG Duration 04/09/22 [facility] Goal (LTG) Patient able to resume normal sleep pattern, without waking due to neck pain as is typical at this time LTG Duration 05/09/22 One Impairment neck and upper trap pain constant 04/29 [facility] Goal (LTG) Decrease pain by at least 50% with patient able to resume prior level of function without an increase in pain LTG Duration 05/09/22 Assessment Summary Assessment Palpable trigger points riki UT right greater than left. Good tolerance for STM, and was shown Theracane for self massage. Trial kinesiotape for UT inhibition. Good compliance to HEP. Physical Therapy Plan Frequency and Duration Frequency of Treatment 2x/Week Duration of Treatment 8 weeks Plan of Care Start Date 03/10/22 Plan of Care End Date 05/09/22 Therapeutic Interventions Therapeutic Interventions Aquatic Therapy,Home Exercise Program,Manual Therapy, Neuromuscular Re-education, Patient/Caregiver Education, Self-Care/Home Management,Soft Tissue Mobilization,Taping, Therapeutic Activities, Therapeutic Exercises Modalities Cold Pack/Ice Massage Next Visit Focus/Plan Next Note Type Treatment Note Next Visit Plan Assess response to kinesiotape , MH, STM.
--- NOTE | 2022-03-17 09:16 | PT.OTN ---
Current Diagnoses Other spondylosis with radiculopathy, cervical region (03/17/22) Spinal stenosis, cervical region (03/17/22) Physical Therapy Treatment Note PT-OP-A Visit Information Start: 03/08/22 16:31 Freq: Status: Active Protocol: Document 03/17/22 08:15 [facility] (Rec: 03/17/22 08:33 [facility] [id number]) Out-Patient Physical Therapy Visit Information Visit Information Visit Type Treatment Note Visit Start Time 08:15 Visit Stop Time 09:15 Total Visit Minutes 60 Visit Number 3 Precautions Precautions anterior cervical fusion C4-6 with metal plate and screws PT-OP-B Current Condition Start: 03/08/22 16:31 Freq: Status: Active Protocol: Document 03/15/22 11:15 [facility] (Rec: 03/15/22 12:15 [facility] [id number]) Current Condition History of Current Condition Onset Date 01/17/22 Current Complaints neck and upper trap pain. History of Current Condition discectomy x 2, ant fusion C45 , C56 with metal removal of bone spur. after 15 years of neck pain with radicular symtpms into right UE, with numbness thumb and first finger. At this time has pain in the back of her neck and upper traps. Pain no better in neck and upper traps. having headaches but radicular symptoms gone. Also reports burning pain lower neck. Saw doctor 2 week post op, was told no turning of head or bending . Saw PA at 6 weeks; don't twist or bend, minimize lifting. Sleeps on her side. Doesn't drive, not able to turn her head adequately to look behind. Left shoulder pain as well. No further appointment with doctor. Prior Treatments and Tests PT not helpful previously, states she was mostly just given exercises, no hands on work. Did have massage therapy which helped for a day then deepak returned. Future Testing and Treatments Planned No further return visits to doctor PT-OP-C Subjective Start: 03/08/22 16:31 Freq: Status: Active Protocol: Document 03/17/22 08:15 [facility] (Rec: 03/17/22 08:33 [facility] [id number]) OP-PT Subjective Patient Comments Patient Comments no change in pain. No irritation from kinesiotape, able to leave on, but no relief either. Ordered Posture, Get it Straight book and Theracane. PT-OP-F Manual Assessment Start: 03/08/22 16:31 Freq: Status: Active Protocol: Document 03/10/22 09:49 [facility] (Rec: 03/10/22 11:13 [facility] [id number]) Manual Assessments Joint Mobility Assessment Joint Mobility Assessment decreased joint mobility upper thoracic spine PT-OP-J Posture/Palpation/Skin Start: 03/08/22 16:31 Freq: Status: Active Protocol: Document 03/10/22 09:49 [facility] (Rec: 03/10/22 11:13 [facility] [id number]) Posture Evaluation Position Standing Head/C-Spine Posture Forward Head T-Spine Posture Increased Kyphosis L-Spine Posture Increased Lordosis Shoulder Posture (L) Rounded,(R) Rounded Scapula Posture (L) Protracted,(R) Protracted Arm Posture (L) Internally Rotated,(R) Internally Rotated Pelvis Posture Anteriorly Tilted Palpation Assessment Location One Palpation Location c/s, upper traps Palpation Findings Soft Tissue Tightness,Muscle Guarding,Tenderness,Trigger Point PT-OP-K Range of Motion Start: 03/08/22 16:31 Freq: Status: Active Protocol: Document 03/10/22 09:49 [facility] (Rec: 03/10/22 11:13 [facility] [id number]) Cervical Spine Range of Motion Cervical Spine Active Testing Position Standing Flexion 45 Extension 10 Rotation Left 15 Rotation Right 5 Lateral Flexion Left 10 Lateral Flexion Right 10 ROM Limitations Soft Tissue Tightness,Bony Restriction,Pain Comments encouraged only very gentle movement Shoulder Goniometric Range of Motion Shoulder Left Flexion 155 Horizontal Adduction 20 Internal Rotation Behind Back (text) T12 Right Shoulder ROM WFL Yes Internal Rotation Behind Back (text) T7 Shoulder ROM Limitations Shoulder ROM Limitations Soft Tissue Tightness,Pain PT-OP-M Strength Start: 03/08/22 16:31 Freq: Status: Active Protocol: Document 03/10/22 09:49 [facility] (Rec: 03/10/22 11:13 [facility] [id number]) Cervical Spine Strength Cervical Spine Manual Muscle Testing Comments no MMT due to recent surgery with high level of pain Shoulder Strength Shoulder Manual Muscle Testing riki Comments has antigravity strength within available ROM but no MMT due to recent surgery PT-OP-Q Treatments Start: 03/08/22 16:31 Freq: Status: Active Protocol: Document 03/17/22 08:15 [facility] (Rec: 03/17/22 08:33 [facility] [id number]) Therapeutic Exercises Supine Exercises pec minor Comments next session pec stretch Supine Exercise Name pec major Side bilateral Reps/Minutes 2 min Comments passive Standing Exercises shoulder rolls Reps/Minutes 5x horizontal abduction Reps/Minutes 10x doorway stretch Reps/Minutes 2x30 overhead press Equipment Used 1# Reps/Minutes 10x bicep curl Resistance 1# Reps/Minutes 10x shoulder ext Resistance L1 TB Reps/Minutes 10x row Resistance L1 TB Reps/Minutes 10x Manual Therapy Treatment Soft Tissue Mobilization 1 Body Location c/s, UT, LS Mobilization Type Myofascial Release,Strumming, Sustained Pressure,Trigger Point Release Intensity/Depth Moderate Body Position sitting and hooklying Self-Care/Home Management Treatment Education Patient Education Body Mechanics,Home Exercise Program,Posture Other Education increased stress on neck with head forward position, continue to stress importance of postural correction exercises and throughout the day with function PT-OP-R Modalities Start: 03/08/22 16:31 Freq: Status: Active Protocol: Document 03/17/22 08:15 [facility] (Rec: 03/17/22 09:16 [facility] [id number]) Electric Stimulation Electric Stimulation Interferential Current (IFC) Body Location c/s, UT Duration (Minutes) 15 Intensity 11 Target/Sweep Sweep Combined With Heat/Cold Hot Pack Comments MH c/s, UT, and t/s PT-OP-T Assessment and Plan Start: 03/08/22 16:31 Freq: Status: Active Protocol: Document 03/17/22 08:15 [facility] (Rec: 03/17/22 08:33 [facility] [id number]) Physical Therapy Assessment Goals Four Impairment postural dysfunction contributing to persistent neck pain Short Term Goal (STG) patient to be instructed in neutral posture, correct body mechanics for usual activities and demonstrate good understanding STG Duration 04/09/22 Jail Goal (LTG) Patient to demonstrate improvement in habitual posture, verbalize and demonstrate correction of activities utilizing correct alignment and body mechanics for neck protection and health . LTG Duration 05/09/22 Three Impairment patient unable to drive due to pain and limited neck motion Jail Goal (LTG) Decrease pain and improve mobility sufficient to allow patient to return to safe driving LTG Duration 05/09/22 Two Impairment sleep interrupted by pain Short Term Goal (STG) patient to be instrsucted in correct body support and positioning for spinal health in supine and sidelying for improved sleep STG Duration 04/09/22 Jail Goal (LTG) Patient able to resume normal sleep pattern, without waking due to neck pain as is typical at this time LTG Duration 05/09/22 One Impairment neck and upper trap pain constant 04/29 Jail Goal (LTG) Decrease pain by at least 50% with patient able to resume prior level of function without an increase in pain LTG Duration 05/09/22 Assessment Summary Assessment Progressed exercises with good tolerance. No change in pain . Improving postural awareness. Physical Therapy Plan Frequency and Duration Frequency of Treatment 2x/Week Duration of Treatment 8 weeks Plan of Care Start Date 03/10/22 Plan of Care End Date 05/09/22 Therapeutic Interventions Therapeutic Interventions Aquatic Therapy,Home Exercise Program,Manual Therapy, Neuromuscular Re-education, Patient/Caregiver Education, Self-Care/Home Management,Soft Tissue Mobilization,Taping, Therapeutic Activities, Therapeutic Exercises Modalities Cold Pack/Ice Massage Next Visit Focus/Plan Next Note Type Treatment Note
--- NOTE | 2022-03-22 15:49 | PT.OTN ---
Current Diagnoses Other spondylosis with radiculopathy, cervical region (03/22/22) Spinal stenosis, cervical region (03/22/22) Physical Therapy Treatment Note PT-OP-A Visit Information Start: 03/08/22 16:31 Freq: Status: Active Protocol: Document 03/22/22 11:22 [facility] (Rec: 03/22/22 11:38 [facility] [id number]) Out-Patient Physical Therapy Visit Information Visit Information Visit Type Treatment Note Visit Start Time 11:20 Visit Stop Time 12:20 Total Visit Minutes 60 Visit Number 4 Precautions Precautions anterior cervical fusion C4-6 with metal plate and screws PT-OP-B Current Condition Start: 03/08/22 16:31 Freq: Status: Active Protocol: Document 03/15/22 11:15 [facility] (Rec: 03/15/22 12:15 [facility] [id number]) Current Condition History of Current Condition Onset Date 01/17/22 Current Complaints neck and upper trap pain. History of Current Condition discectomy x 2, ant fusion C45 , C56 with metal removal of bone spur. after 15 years of neck pain with radicular symtpms into right UE, with numbness thumb and first finger. At this time has pain in the back of her neck and upper traps. Pain no better in neck and upper traps. having headaches but radicular symptoms gone. Also reports burning pain lower neck. Saw doctor 2 week post op, was told no turning of head or bending . Saw PA at 6 weeks; don't twist or bend, minimize lifting. Sleeps on her side. Doesn't drive, not able to turn her head adequately to look behind. Left shoulder pain as well. No further appointment with doctor. Prior Treatments and Tests PT not helpful previously, states she was mostly just given exercises, no hands on work. Did have massage therapy which helped for a day then deepak returned. Future Testing and Treatments Planned No further return visits to doctor PT-OP-C Subjective Start: 03/08/22 16:31 Freq: Status: Active Protocol: Document 03/22/22 11:22 [facility] (Rec: 03/22/22 11:38 [facility] [id number]) OP-PT Subjective Patient Comments Patient Comments [place] pretty good day after PT last session, last night was a bad night. Wants to talk more about dry needling, requests info. Trying not to spend more than 30 min on the computer. PT-OP-F Manual Assessment Start: 03/08/22 16:31 Freq: Status: Active Protocol: Document 03/10/22 09:49 [facility] (Rec: 03/10/22 11:13 [facility] [id number]) Manual Assessments Joint Mobility Assessment Joint Mobility Assessment decreased joint mobility upper thoracic spine PT-OP-J Posture/Palpation/Skin Start: 03/08/22 16:31 Freq: Status: Active Protocol: Document 03/10/22 09:49 [facility] (Rec: 03/10/22 11:13 [facility] [id number]) Posture Evaluation Position Standing Head/C-Spine Posture Forward Head T-Spine Posture Increased Kyphosis L-Spine Posture Increased Lordosis Shoulder Posture (L) Rounded,(R) Rounded Scapula Posture (L) Protracted,(R) Protracted Arm Posture (L) Internally Rotated,(R) Internally Rotated Pelvis Posture Anteriorly Tilted Palpation Assessment Location One Palpation Location c/s, upper traps Palpation Findings Soft Tissue Tightness,Muscle Guarding,Tenderness,Trigger Point PT-OP-K Range of Motion Start: 03/08/22 16:31 Freq: Status: Active Protocol: Document 03/10/22 09:49 [facility] (Rec: 03/10/22 11:13 [facility] [id number]) Cervical Spine Range of Motion Cervical Spine Active Testing Position Standing Flexion 45 Extension 10 Rotation Left 15 Rotation Right 5 Lateral Flexion Left 10 Lateral Flexion Right 10 ROM Limitations Soft Tissue Tightness,Bony Restriction,Pain Comments encouraged only very gentle movement Shoulder Goniometric Range of Motion Shoulder Left Flexion 155 Horizontal Adduction 20 Internal Rotation Behind Back (text) T12 Right Shoulder ROM WFL Yes Internal Rotation Behind Back (text) T7 Shoulder ROM Limitations Shoulder ROM Limitations Soft Tissue Tightness,Pain PT-OP-M Strength Start: 03/08/22 16:31 Freq: Status: Active Protocol: Document 03/10/22 09:49 [facility] (Rec: 03/10/22 11:13 [facility] [id number]) Cervical Spine Strength Cervical Spine Manual Muscle Testing Comments no MMT due to recent surgery with high level of pain Shoulder Strength Shoulder Manual Muscle Testing riki Comments has antigravity strength within available ROM but no MMT due to recent surgery PT-OP-Q Treatments Start: 03/08/22 16:31 Freq: Status: Active Protocol: Document 03/22/22 11:22 [facility] (Rec: 03/22/22 11:38 [facility] [id number]) Cardio Equipment Recumbent Stepper (Sci-Fit) Duration (Minutes) 5 Resistance 1 Seat Position 9 Other cues for posture Therapeutic Exercises Standing Exercises doorway stretch Standing Exercise Name pec major and minor Reps/Minutes 2x30 Manual Therapy Treatment Soft Tissue Mobilization 1 Body Location c/s, UT, LS Mobilization Type Myofascial Release,Strumming, Sustained Pressure,Trigger Point Release Intensity/Depth Moderate Body Position sitting and hooklying Self-Care/Home Management Treatment Education Patient Education Body Mechanics,Home Exercise Program,Posture Other Education Importance of postural correction Discussion of dry needling technique and benfits. PT-OP-R Modalities Start: 03/08/22 16:31 Freq: Status: Active Protocol: Document 03/22/22 11:22 [facility] (Rec: 03/22/22 11:38 [facility] [id number]) Electric Stimulation Electric Stimulation Interferential Current (IFC) Body Location c/s, UT Duration (Minutes) 15 Intensity 11 Target/Sweep Sweep Combined With Heat/Cold Hot Pack Comments MH c/s, UT, and t/s PT-OP-T Assessment and Plan Start: 03/08/22 16:31 Freq: Status: Active Protocol: Document 03/22/22 11:22 [facility] (Rec: 03/22/22 11:38 [facility] [id number]) Physical Therapy Assessment Goals Four Impairment postural dysfunction contributing to persistent neck pain Short Term Goal (STG) patient to be instructed in neutral posture, correct body mechanics for usual activities and demonstrate good understanding STG Duration 04/09/22 Insulation Supervisor Goal (LTG) Patient to demonstrate improvement in habitual posture, verbalize and demonstrate correction of activities utilizing correct alignment and body mechanics for neck protection and health . LTG Duration 05/09/22 Three Impairment patient unable to drive due to pain and limited neck motion Mcfp Goal (LTG) Decrease pain and improve mobility sufficient to allow patient to return to safe driving LTG Duration 05/09/22 Two Impairment sleep interrupted by pain Short Term Goal (STG) patient to be instrsucted in correct body support and positioning for spinal health in supine and sidelying for improved sleep STG Duration 04/09/22 Insulation Supervisor Goal (LTG) Patient able to resume normal sleep pattern, without waking due to neck pain as is typical at this time LTG Duration 05/09/22 One Impairment neck and upper trap pain constant 04/29 Insulation Supervisor Goal (LTG) Decrease pain by at least 50% with patient able to resume prior level of function without an increase in pain LTG Duration 05/09/22 Assessment Summary Assessment Patient had good decrease in pain for 1 day after last PT session. Continue to stress importance of deep breathing, postural correction throughout the day, HEP compliance. Feel she would benefit from dry needling and she seems receptive; given information for Dr. Pinedo. Physical Therapy Plan Frequency and Duration Frequency of Treatment 2x/Week Duration of Treatment 8 weeks Plan of Care Start Date 03/10/22 Plan of Care End Date 05/09/22 Therapeutic Interventions Therapeutic Interventions Aquatic Therapy,Home Exercise Program,Manual Therapy, Neuromuscular Re-education, Patient/Caregiver Education, Self-Care/Home Management,Soft Tissue Mobilization,Taping, Therapeutic Activities, Therapeutic Exercises Modalities Cold Pack/Ice Massage Next Visit Focus/Plan Next Note Type Treatment Note Next Visit Plan Continue gentle progression of ther ex with emphasis on postural correction, posterior chain strengthening.
--- NOTE | 2022-03-24 12:15 | PT.OTN ---
Current Diagnoses Other spondylosis with radiculopathy, cervical region (03/24/22) Spinal stenosis, cervical region (03/24/22) Physical Therapy Treatment Note PT-OP-A Visit Information Start: 03/08/22 16:31 Freq: Status: Active Protocol: Document 03/24/22 10:54 [facility] (Rec: 03/24/22 12:15 [facility] [id number]) Out-Patient Physical Therapy Visit Information Visit Information Visit Type Treatment Note Visit Start Time 11:20 Visit Stop Time 12:15 Total Visit Minutes 55 Visit Number 5 Number of SEMIAUTOMATIC TAPER OPERATOR Visits 0 PT-OP-B Current Condition Start: 03/08/22 16:31 Freq: Status: Active Protocol: Document 03/15/22 11:15 [facility] (Rec: 03/15/22 12:15 [facility] [id number]) Current Condition History of Current Condition Onset Date 01/17/22 Current Complaints neck and upper trap pain. History of Current Condition discectomy x 2, ant fusion C45 , C56 with metal removal of bone spur. after 15 years of neck pain with radicular symtpms into right UE, with numbness thumb and first finger. At this time has pain in the back of her neck and upper traps. Pain no better in neck and upper traps. having headaches but radicular symptoms gone. Also reports burning pain lower neck. Saw doctor 2 week post op, was told no turning of head or bending . Saw PA at 6 weeks; don't twist or bend, minimize lifting. Sleeps on her side. Doesn't drive, not able to turn her head adequately to look behind. Left shoulder pain as well. No further appointment with doctor. Prior Treatments and Tests PT not helpful previously, states she was mostly just given exercises, no hands on work. Did have massage therapy which helped for a day then deepak returned. Future Testing and Treatments Planned No further return visits to doctor PT-OP-C Subjective Start: 03/08/22 16:31 Freq: Status: Active Protocol: Document 03/24/22 10:54 [facility] (Rec: 03/24/22 12:15 [facility] [id number]) OP-PT Subjective Patient Comments Patient Comments Pt reports the posture press hurts when she does 5 so she backed off to 3 and it is better. She still feels it at lower tspine but its better. She feels like the manual treatment is helpful. PT-OP-F Manual Assessment Start: 03/08/22 16:31 Freq: Status: Active Protocol: Document 03/10/22 09:49 [facility] (Rec: 03/10/22 11:13 [facility] [id number]) Manual Assessments Joint Mobility Assessment Joint Mobility Assessment decreased joint mobility upper thoracic spine PT-OP-J Posture/Palpation/Skin Start: 03/08/22 16:31 Freq: Status: Active Protocol: Document 03/10/22 09:49 [facility] (Rec: 03/10/22 11:13 [facility] [id number]) Posture Evaluation Position Standing Head/C-Spine Posture Forward Head T-Spine Posture Increased Kyphosis L-Spine Posture Increased Lordosis Shoulder Posture (L) Rounded,(R) Rounded Scapula Posture (L) Protracted,(R) Protracted Arm Posture (L) Internally Rotated,(R) Internally Rotated Pelvis Posture Anteriorly Tilted Palpation Assessment Location One Palpation Location c/s, upper traps Palpation Findings Soft Tissue Tightness,Muscle Guarding,Tenderness,Trigger Point PT-OP-K Range of Motion Start: 03/08/22 16:31 Freq: Status: Active Protocol: Document 03/10/22 09:49 [facility] (Rec: 03/10/22 11:13 [facility] [id number]) Cervical Spine Range of Motion Cervical Spine Active Testing Position Standing Flexion 45 Extension 10 Rotation Left 15 Rotation Right 5 Lateral Flexion Left 10 Lateral Flexion Right 10 ROM Limitations Soft Tissue Tightness,Bony Restriction,Pain Comments encouraged only very gentle movement Shoulder Goniometric Range of Motion Shoulder Left Flexion 155 Horizontal Adduction 20 Internal Rotation Behind Back (text) T12 Right Shoulder ROM WFL Yes Internal Rotation Behind Back (text) T7 Shoulder ROM Limitations Shoulder ROM Limitations Soft Tissue Tightness,Pain PT-OP-M Strength Start: 03/08/22 16:31 Freq: Status: Active Protocol: Document 03/10/22 09:49 [facility] (Rec: 03/10/22 11:13 [facility] [id number]) Cervical Spine Strength Cervical Spine Manual Muscle Testing Comments no MMT due to recent surgery with high level of pain Shoulder Strength Shoulder Manual Muscle Testing riki Comments has antigravity strength within available ROM but no MMT due to recent surgery PT-OP-Q Treatments Start: 03/08/22 16:31 Freq: Status: Active Protocol: Document 03/24/22 10:54 [facility] (Rec: 03/24/22 12:15 [facility] [id number]) Cardio Equipment Recumbent Stepper (Sci-Fit) Duration (Minutes) 5 Resistance 1 Seat Position 9 Other cues for posture Therapeutic Exercises Supine Exercises posture press Reps/Minutes 3x Standing Exercises horizontal abduction Standing Exercise Name B ER Side bilateral Reps/Minutes 10x shoulder ext Side bilateral Resistance L1 TB Reps/Minutes 10x row Side bilateral Resistance L1 TB Reps/Minutes 10x Manual Therapy Treatment Soft Tissue Mobilization 1 Body Location cervical paraspinals, UT, LS, scalenes Mobilization Type Myofascial Release,Rolling, Strumming,Sustained Pressure Intensity/Depth Moderate Body Position Sidelying Comments w/ PROM into post dep Joint Mobilizations AC Joint B Direction gapping FM PT-OP-R Modalities Start: 03/08/22 16:31 Freq: Status: Active Protocol: Document 03/24/22 10:54 [facility] (Rec: 03/24/22 12:15 [facility] [id number]) Electric Stimulation Electric Stimulation Interferential Current (IFC) Body Location c/s, UT Duration (Minutes) 15 Intensity 11 Target/Sweep Sweep Combined With Heat/Cold Hot Pack Comments MH c/s, UT, and t/s PT-OP-T Assessment and Plan Start: 03/08/22 16:31 Freq: Status: Active Protocol: Document 03/24/22 10:54 [facility] (Rec: 03/24/22 12:15 [facility] [id number]) Physical Therapy Assessment Goals Four Impairment postural dysfunction contributing to persistent neck pain Short Term Goal (STG) patient to be instructed in neutral posture, correct body mechanics for usual activities and demonstrate good understanding STG Duration 04/09/22 Bank Officer Goal (LTG) Patient to demonstrate improvement in habitual posture, verbalize and demonstrate correction of activities utilizing correct alignment and body mechanics for neck protection and health . LTG Duration 05/09/22 Three Impairment patient unable to drive due to pain and limited neck motion Bank Officer Goal (LTG) Decrease pain and improve mobility sufficient to allow patient to return to safe driving LTG Duration 05/09/22 Two Impairment sleep interrupted by pain Short Term Goal (STG) patient to be instrsucted in correct body support and positioning for spinal health in supine and sidelying for improved sleep STG Duration 04/09/22 Bank Officer Goal (LTG) Patient able to resume normal sleep pattern, without waking due to neck pain as is typical at this time LTG Duration 05/09/22 One Impairment neck and upper trap pain constant 04/29 Senior Living Goal (LTG) Decrease pain by at least 50% with patient able to resume prior level of function without an increase in pain LTG Duration 05/09/22 Assessment Summary Assessment Pt required cues for posture press to engage more into pelvic tilt to get more lower lumbar core engagemnt to prevent thoracic pain and pt noted less pain after the exercises. She required cues w /tband exercises re: not letting scap elevated. Much improved scap retraction & post depression w/manual treatment. Prior to manual, pt had inability to get full med glide of scap and depression & inf rot. Physical Therapy Plan Frequency and Duration Frequency of Treatment 2x/Week Duration of Treatment 8 weeks Plan of Care Start Date 03/10/22 Plan of Care End Date 05/09/22 Next Visit Focus/Plan Next Note Type Treatment Note Next Visit Plan Continue gentle progression of ther ex with emphasis on postural correction, posterior chain strengthening.
--- NOTE | 2022-03-29 16:57 | PT.OTN ---
Current Diagnoses Other spondylosis with radiculopathy, cervical region (03/29/22) Spinal stenosis, cervical region (03/29/22) Physical Therapy Treatment Note PT-OP-A Visit Information Start: 03/08/22 16:31 Freq: Status: Active Protocol: Document 03/29/22 11:25 [facility] (Rec: 03/29/22 11:35 [facility] [id number]) Out-Patient Physical Therapy Visit Information Visit Information Visit Type Treatment Note Visit Start Time 11:20 Visit Stop Time 12:15 Total Visit Minutes 55 Visit Number 6 Number of RESHIPPING CLERK Visits 0 Precautions Precautions anterior cervical fusion C4-6 with metal plate and screws PT-OP-B Current Condition Start: 03/08/22 16:31 Freq: Status: Active Protocol: Document 03/15/22 11:15 [facility] (Rec: 03/15/22 12:15 [facility] [id number]) Current Condition History of Current Condition Onset Date 01/17/22 Current Complaints neck and upper trap pain. History of Current Condition discectomy x 2, ant fusion C45 , C56 with metal removal of bone spur. after 15 years of neck pain with radicular symtpms into right UE, with numbness thumb and first finger. At this time has pain in the back of her neck and upper traps. Pain no better in neck and upper traps. having headaches but radicular symptoms gone. Also reports burning pain lower neck. Saw doctor 2 week post op, was told no turning of head or bending . Saw PA at 6 weeks; don't twist or bend, minimize lifting. Sleeps on her side. Doesn't drive, not able to turn her head adequately to look behind. Left shoulder pain as well. No further appointment with doctor. Prior Treatments and Tests PT not helpful previously, states she was mostly just given exercises, no hands on work. Did have massage therapy which helped for a day then baldevoin returned. Future Testing and Treatments Planned No further return visits to doctor PT-OP-C Subjective Start: 03/08/22 16:31 Freq: Status: Active Protocol: Document 03/29/22 11:25 [facility] (Rec: 03/29/22 11:35 [facility] [id number]) OP-PT Subjective Patient Comments Patient Comments Has telehealth appointment with Dr. Pinedo May 04. States when doing doorway stretch felt a bit of spasm in right side of neck 2 different time. Tucking pelvis to do supine postural muscle helpful in decreasing pain. PT-OP-F Manual Assessment Start: 03/08/22 16:31 Freq: Status: Active Protocol: Document 03/10/22 09:49 [facility] (Rec: 03/10/22 11:13 [facility] [id number]) Manual Assessments Joint Mobility Assessment Joint Mobility Assessment decreased joint mobility upper thoracic spine PT-OP-J Posture/Palpation/Skin Start: 03/08/22 16:31 Freq: Status: Active Protocol: Document 03/10/22 09:49 [facility] (Rec: 03/10/22 11:13 [facility] [id number]) Posture Evaluation Position Standing Head/C-Spine Posture Forward Head T-Spine Posture Increased Kyphosis L-Spine Posture Increased Lordosis Shoulder Posture (L) Rounded,(R) Rounded Scapula Posture (L) Protracted,(R) Protracted Arm Posture (L) Internally Rotated,(R) Internally Rotated Pelvis Posture Anteriorly Tilted Palpation Assessment Location One Palpation Location c/s, upper traps Palpation Findings Soft Tissue Tightness,Muscle Guarding,Tenderness,Trigger Point PT-OP-K Range of Motion Start: 03/08/22 16:31 Freq: Status: Active Protocol: Document 03/10/22 09:49 [facility] (Rec: 03/10/22 11:13 [facility] [id number]) Cervical Spine Range of Motion Cervical Spine Active Testing Position Standing Flexion 45 Extension 10 Rotation Left 15 Rotation Right 5 Lateral Flexion Left 10 Lateral Flexion Right 10 ROM Limitations Soft Tissue Tightness,Bony Restriction,Pain Comments encouraged only very gentle movement Shoulder Goniometric Range of Motion Shoulder Left Flexion 155 Horizontal Adduction 20 Internal Rotation Behind Back (text) T12 Right Shoulder ROM WFL Yes Internal Rotation Behind Back (text) T7 Shoulder ROM Limitations Shoulder ROM Limitations Soft Tissue Tightness,Pain PT-OP-M Strength Start: 03/08/22 16:31 Freq: Status: Active Protocol: Document 03/10/22 09:49 [facility] (Rec: 03/10/22 11:13 [facility] [id number]) Cervical Spine Strength Cervical Spine Manual Muscle Testing Comments no MMT due to recent surgery with high level of pain Shoulder Strength Shoulder Manual Muscle Testing riki Comments has antigravity strength within available ROM but no MMT due to recent surgery PT-OP-Q Treatments Start: 03/08/22 16:31 Freq: Status: Active Protocol: Document 03/29/22 11:25 [facility] (Rec: 03/29/22 11:35 [facility] [id number]) Cardio Equipment Recumbent Stepper (Sci-Fit) Duration (Minutes) 5 Resistance 1 Seat Position 9 Other cues for posture Therapeutic Exercises Supine Exercises pec minor Comments HEP pec stretch Comments HEP goal post Comments HEP triangle press Comments HEP Standing Exercises doorway stretch Comments verbal instruction in neutral posture, decreased intensity of stretch shoulder ext Comments HEP row Comments HEP Manual Therapy Treatment Soft Tissue Mobilization 1 Body Location cervical paraspinals, UT, LS, scalenes Mobilization Type Myofascial Release,Rolling, Strumming,Sustained Pressure Intensity/Depth Moderate Body Position Sidelying Comments w/ PROM into post dep Self-Care/Home Management Treatment Education Patient Education Home Exercise Program,Pain Management,Posture PT-OP-R Modalities Start: 03/08/22 16:31 Freq: Status: Active Protocol: Document 03/29/22 11:25 [facility] (Rec: 03/29/22 11:35 [facility] [id number]) Electric Stimulation Electric Stimulation Interferential Current (IFC) Body Location c/s, UT Duration (Minutes) 15 Intensity 11 Target/Sweep Sweep Combined With Heat/Cold Hot Pack Comments c/s, UT, and t/s PT-OP-T Assessment and Plan Start: 03/08/22 16:31 Freq: Status: Active Protocol: Document 03/29/22 11:25 [facility] (Rec: 03/29/22 11:35 [facility] [id number]) Physical Therapy Assessment Goals Four Impairment postural dysfunction contributing to persistent neck pain Short Term Goal (STG) patient to be instructed in neutral posture, correct body mechanics for usual activities and demonstrate good understanding STG Duration 04/09/22 Chairman & Co Founder Goal (LTG) Patient to demonstrate improvement in habitual posture, verbalize and demonstrate correction of activities utilizing correct alignment and body mechanics for neck protection and health . LTG Duration 05/09/22 Three Impairment patient unable to drive due to pain and limited neck motion Care Home Goal (LTG) Decrease pain and improve mobility sufficient to allow patient to return to safe driving LTG Duration 05/09/22 Two Impairment sleep interrupted by pain Short Term Goal (STG) patient to be instrsucted in correct body support and positioning for spinal health in supine and sidelying for improved sleep STG Duration 04/09/22 Chairman & Co Founder Goal (LTG) Patient able to resume normal sleep pattern, without waking due to neck pain as is typical at this time LTG Duration 05/09/22 One Impairment neck and upper trap pain constant 04/29 Care Home Goal (LTG) Decrease pain by at least 50% with patient able to resume prior level of function without an increase in pain LTG Duration 05/09/22 Assessment Summary Assessment Making modifications with HEP with improved tolerance. Improving scapular awareness, mobility and control. Pain level unchanged at this time. Physical Therapy Plan Frequency and Duration Frequency of Treatment 2x/Week Duration of Treatment 8 weeks Plan of Care Start Date 03/10/22 Plan of Care End Date 05/09/22 Therapeutic Interventions Therapeutic Interventions Aquatic Therapy,Home Exercise Program,Manual Therapy, Neuromuscular Re-education, Patient/Caregiver Education, Self-Care/Home Management,Soft Tissue Mobilization,Taping, Therapeutic Activities, Therapeutic Exercises Modalities Cold Pack/Ice Massage Next Visit Focus/Plan Next Note Type Treatment Note Next Visit Plan Continue gentle progression of ther ex with emphasis on postural correction, posterior chain strengthening.
--- NOTE | 2022-03-31 12:00 | PT.OTN ---
Current Diagnoses Other spondylosis with radiculopathy, cervical region (03/31/22) Spinal stenosis, cervical region (03/31/22) Physical Therapy Treatment Note PT-OP-A Visit Information Start: 03/08/22 16:31 Freq: Status: Active Protocol: Document 03/31/22 11:25 [facility] (Rec: 03/31/22 12:08 [facility] [id number]) Out-Patient Physical Therapy Visit Information Visit Information Visit Type Treatment Note Visit Start Time 11:20 Visit Stop Time 12:15 Total Visit Minutes 55 Visit Number 7 Number of MEDICAL CERTIFICATION SPECIALIST Visits 0 Precautions Precautions anterior cervical fusion C4-6 with metal plate and screws PT-OP-B Current Condition Start: 03/08/22 16:31 Freq: Status: Active Protocol: Document 03/15/22 11:15 [facility] (Rec: 03/15/22 12:15 [facility] [id number]) Current Condition History of Current Condition Onset Date 01/17/22 Current Complaints neck and upper trap pain. History of Current Condition discectomy x 2, ant fusion C45 , C56 with metal removal of bone spur. after 15 years of neck pain with radicular symtpms into right UE, with numbness thumb and first finger. At this time has pain in the back of her neck and upper traps. Pain no better in neck and upper traps. having headaches but radicular symptoms gone. Also reports burning pain lower neck. Saw doctor 2 week post op, was told no turning of head or bending . Saw PA at 6 weeks; don't twist or bend, minimize lifting. Sleeps on her side. Doesn't drive, not able to turn her head adequately to look behind. Left shoulder pain as well. No further appointment with doctor. Prior Treatments and Tests PT not helpful previously, states she was mostly just given exercises, no hands on work. Did have massage therapy which helped for a day then baldevoin returned. Future Testing and Treatments Planned No further return visits to doctor PT-OP-C Subjective Start: 03/08/22 16:31 Freq: Status: Active Protocol: Document 03/31/22 11:25 [facility] (Rec: 03/31/22 12:08 [facility] [id number]) OP-PT Subjective Patient Comments Patient Comments No new c/o, pain not worse or better. Still waiting to receive Posture, Get It straight book. Good compliance to HEP PT-OP-F Manual Assessment Start: 03/08/22 16:31 Freq: Status: Active Protocol: Document 03/10/22 09:49 [facility] (Rec: 03/10/22 11:13 [facility] [id number]) Manual Assessments Joint Mobility Assessment Joint Mobility Assessment decreased joint mobility upper thoracic spine PT-OP-J Posture/Palpation/Skin Start: 03/08/22 16:31 Freq: Status: Active Protocol: Document 03/10/22 09:49 [facility] (Rec: 03/10/22 11:13 [facility] [id number]) Posture Evaluation Position Standing Head/C-Spine Posture Forward Head T-Spine Posture Increased Kyphosis L-Spine Posture Increased Lordosis Shoulder Posture (L) Rounded,(R) Rounded Scapula Posture (L) Protracted,(R) Protracted Arm Posture (L) Internally Rotated,(R) Internally Rotated Pelvis Posture Anteriorly Tilted Palpation Assessment Location One Palpation Location c/s, upper traps Palpation Findings Soft Tissue Tightness,Muscle Guarding,Tenderness,Trigger Point PT-OP-K Range of Motion Start: 03/08/22 16:31 Freq: Status: Active Protocol: Document 03/10/22 09:49 [facility] (Rec: 03/10/22 11:13 [facility] [id number]) Cervical Spine Range of Motion Cervical Spine Active Testing Position Standing Flexion 45 Extension 10 Rotation Left 15 Rotation Right 5 Lateral Flexion Left 10 Lateral Flexion Right 10 ROM Limitations Soft Tissue Tightness,Bony Restriction,Pain Comments encouraged only very gentle movement Shoulder Goniometric Range of Motion Shoulder Left Flexion 155 Horizontal Adduction 20 Internal Rotation Behind Back (text) T12 Right Shoulder ROM WFL Yes Internal Rotation Behind Back (text) T7 Shoulder ROM Limitations Shoulder ROM Limitations Soft Tissue Tightness,Pain PT-OP-M Strength Start: 03/08/22 16:31 Freq: Status: Active Protocol: Document 03/10/22 09:49 [facility] (Rec: 03/10/22 11:13 [facility] [id number]) Cervical Spine Strength Cervical Spine Manual Muscle Testing Comments no MMT due to recent surgery with high level of pain Shoulder Strength Shoulder Manual Muscle Testing riki Comments has antigravity strength within available ROM but no MMT due to recent surgery PT-OP-Q Treatments Start: 03/08/22 16:31 Freq: Status: Active Protocol: Document 03/31/22 11:25 [facility] (Rec: 03/31/22 12:08 [facility] [id number]) Cardio Equipment Recumbent Stepper (Sci-Fit) Duration (Minutes) 5 Resistance 1 Seat Position 9 Other cues for posture Therapeutic Exercises Supine Exercises shld ER Resistance L1 TB Reps/Minutes 10x Comments cues for UT inhibiton horizontal abduction Equipment Used L1 TB Reps/Minutes 10x pec stretch Supine Exercise Name major and minor Reps/Minutes 2x30 Sitting Exercises Shoulder external rotation Equipment Used L1 TB Reps/Minutes 10x shoulder blade squeeze Reps/Minutes 5x Manual Therapy Treatment Soft Tissue Mobilization 1 Body Location cervical paraspinals, UT, LS, scalenes Mobilization Type Myofascial Release,Rolling, Strumming,Sustained Pressure Intensity/Depth Moderate Body Position Sidelying Comments also supine w/ PROM into post dep Self-Care/Home Management Treatment Education Patient Education Home Exercise Program,Pain Management,Posture Other Education self-massage with tennis ball as option to Theracane; issued written instructions Cues to not force postural correction; do gently. PT-OP-R Modalities Start: 03/08/22 16:31 Freq: Status: Active Protocol: Document 03/31/22 11:25 [facility] (Rec: 03/31/22 12:08 [facility] [id number]) Electric Stimulation Electric Stimulation Interferential Current (IFC) Body Location c/s, UT Duration (Minutes) 15 Intensity 11 Target/Sweep Sweep Combined With Heat/Cold Hot Pack Comments MH c/s, UT, and t/s PT-OP-T Assessment and Plan Start: 03/08/22 16:31 Freq: Status: Active Protocol: Document 03/31/22 11:25 [facility] (Rec: 03/31/22 12:08 [facility] [id number]) Physical Therapy Assessment Goals Four Impairment postural dysfunction contributing to persistent neck pain Short Term Goal (STG) patient to be instructed in neutral posture, correct body mechanics for usual activities and demonstrate good understanding STG Duration 04/09/22 Usp Goal (LTG) Patient to demonstrate improvement in habitual posture, verbalize and demonstrate correction of activities utilizing correct alignment and body mechanics for neck protection and health . LTG Duration 05/09/22 Three Impairment patient unable to drive due to pain and limited neck motion Usp Goal (LTG) Decrease pain and improve mobility sufficient to allow patient to return to safe driving LTG Duration 05/09/22 Two Impairment sleep interrupted by pain Short Term Goal (STG) patient to be instrsucted in correct body support and positioning for spinal health in supine and sidelying for improved sleep STG Duration 04/09/22 Usp Goal (LTG) Patient able to resume normal sleep pattern, without waking due to neck pain as is typical at this time LTG Duration 05/09/22 One Impairment neck and upper trap pain constant 04/29 Felt Hat Inspector And Packer Goal (LTG) Decrease pain by at least 50% with patient able to resume prior level of function without an increase in pain LTG Duration 05/09/22 Assessment Summary Assessment Patient demonstrated good understanding of use of tennis ball for self-massage as option to Theracane. Has appointment scheduled with Dr. Pinedo for possible dry needling. Good compliance to HEP. May want to consider prone position for manual techniques and posterior chain strengthening if patient able to tolerate using prone pillow. Physical Therapy Plan Frequency and Duration Frequency of Treatment 2x/Week Duration of Treatment 8 weeks Plan of Care Start Date 03/10/22 Plan of Care End Date 05/09/22 Therapeutic Interventions Therapeutic Interventions Aquatic Therapy,Home Exercise Program,Manual Therapy, Neuromuscular Re-education, Patient/Caregiver Education, Self-Care/Home Management,Soft Tissue Mobilization,Taping, Therapeutic Activities, Therapeutic Exercises Modalities Cold Pack/Ice Massage Next Visit Focus/Plan Next Note Type Treatment Note Next Visit Plan Continue gentle progression of ther ex with emphasis on postural correction, posterior chain strengthening. Manual therapy to improve muscle tension and pain, facilitate improved biomechanics and muscle activation.
--- NOTE | 2022-04-04 18:49 | PT.OTN ---
Current Diagnoses Other spondylosis with radiculopathy, cervical region (04/04/22) Spinal stenosis, cervical region (04/04/22) Physical Therapy Treatment Note PT-OP-A Visit Information Start: 03/08/22 16:31 Freq: Status: Active Protocol: Document 04/04/22 13:38 MA (Rec: 04/04/22 14:31 MA [id number]) Out-Patient Physical Therapy Visit Information Visit Information Visit Type Treatment Note Visit Start Time 13:45 Visit Stop Time 14:25 Total Visit Minutes 40 Visit Number 8 Number of TOOL LATHE OPERATOR Visits 1 Precautions Precautions anterior cervical fusion C4-6 with metal plate and screws PT-OP-B Current Condition Start: 03/08/22 16:31 Freq: Status: Active Protocol: Document 03/15/22 11:15 SAK (Rec: 03/15/22 12:15 SAK [id number]) Current Condition History of Current Condition Onset Date 01/17/22 Current Complaints neck and upper trap pain. History of Current Condition discectomy x 2, ant fusion C45 , C56 with metal removal of bone spur. after 15 years of neck pain with radicular symtpms into right UE, with numbness thumb and first finger. At this time has pain in the back of her neck and upper traps. Pain no better in neck and upper traps. having headaches but radicular symptoms gone. Also reports burning pain lower neck. Saw doctor 2 week post op, was told no turning of head or bending . Saw PA at 6 weeks; don't twist or bend, minimize lifting. Sleeps on her side. Doesn't drive, not able to turn her head adequately to look behind. Left shoulder pain as well. No further appointment with doctor. Prior Treatments and Tests PT not helpful previously, states she was mostly just given exercises, no hands on work. Did have massage therapy which helped for a day then paoin returned. Future Testing and Treatments Planned No further return visits to doctor PT-OP-C Subjective Start: 03/08/22 16:31 Freq: Status: Active Protocol: Document 04/04/22 13:38 MA (Rec: 04/04/22 18:49 MA [id number]) OP-PT Subjective Patient Comments Patient Comments Pt has not bought tennis balls yet for home use. She would like to practice using them if possible. PT-OP-F Manual Assessment Start: 03/08/22 16:31 Freq: Status: Active Protocol: Document 03/10/22 09:49 SAK (Rec: 03/10/22 11:13 SAK [id number]) Manual Assessments Joint Mobility Assessment Joint Mobility Assessment decreased joint mobility upper thoracic spine PT-OP-J Posture/Palpation/Skin Start: 03/08/22 16:31 Freq: Status: Active Protocol: Document 03/10/22 09:49 SAK (Rec: 03/10/22 11:13 SAK [id number]) Posture Evaluation Position Standing Head/C-Spine Posture Forward Head T-Spine Posture Increased Kyphosis L-Spine Posture Increased Lordosis Shoulder Posture (L) Rounded,(R) Rounded Scapula Posture (L) Protracted,(R) Protracted Arm Posture (L) Internally Rotated,(R) Internally Rotated Pelvis Posture Anteriorly Tilted Palpation Assessment Location One Palpation Location c/s, upper traps Palpation Findings Soft Tissue Tightness,Muscle Guarding,Tenderness,Trigger Point PT-OP-K Range of Motion Start: 03/08/22 16:31 Freq: Status: Active Protocol: Document 03/10/22 09:49 [facility] (Rec: 03/10/22 11:13 [facility] [id number]) Cervical Spine Range of Motion Cervical Spine Active Testing Position Standing Flexion 45 Extension 10 Rotation Left 15 Rotation Right 5 Lateral Flexion Left 10 Lateral Flexion Right 10 ROM Limitations Soft Tissue Tightness,Bony Restriction,Pain Comments encouraged only very gentle movement Shoulder Goniometric Range of Motion Shoulder Left Flexion 155 Horizontal Adduction 20 Internal Rotation Behind Back (text) T12 Right Shoulder ROM WFL Yes Internal Rotation Behind Back (text) T7 Shoulder ROM Limitations Shoulder ROM Limitations Soft Tissue Tightness,Pain PT-OP-M Strength Start: 03/08/22 16:31 Freq: Status: Active Protocol: Document 03/10/22 09:49 SAK (Rec: 03/10/22 11:13 SAK [id number]) Cervical Spine Strength Cervical Spine Manual Muscle Testing Comments no MMT due to recent surgery with high level of pain Shoulder Strength Shoulder Manual Muscle Testing riki Comments has antigravity strength within available ROM but no MMT due to recent surgery PT-OP-Q Treatments Start: 03/08/22 16:31 Freq: Status: Active Protocol: Document 04/04/22 13:38 MA (Rec: 04/04/22 14:31 MA [id number]) Therapeutic Exercises Supine Exercises horizontal abduction Equipment Used L1 TB Reps/Minutes 10x pec minor Comments HEP pec stretch Supine Exercise Name major and minor Reps/Minutes 2x30 Sidelying Exercises ER Sidelying Exercise Name shd ER Side bilateral Equipment Used lvl 1 TB Reps/Minutes x10 ea Standing Exercises shoulder ext Reps/Minutes x10 Comments HEP row Reps/Minutes x10 Comments HEP Other Exercises Self-STM Equipment Used tennis balls in sock, rubber ball Reps/Minutes 5' Comments Tennis Ball to UT, Rhomboids, paraspinals Manual Therapy Treatment Soft Tissue Mobilization 1 Body Location cervical paraspinals, UT, LS, scalenes Mobilization Type Myofascial Release,Rolling, Strumming,Sustained Pressure Intensity/Depth Moderate Body Position Sidelying Comments also supine PT-OP-R Modalities Start: 03/08/22 16:31 Freq: Status: Active Protocol: Document 03/31/22 11:25 SAK (Rec: 03/31/22 12:08 SAK [id number]) Electric Stimulation Electric Stimulation Interferential Current (IFC) Body Location c/s, UT Duration (Minutes) 15 Intensity 11 Target/Sweep Sweep Combined With Heat/Cold Hot Pack Comments MH c/s, UT, and t/s PT-OP-T Assessment and Plan Start: 03/08/22 16:31 Freq: Status: Active Protocol: Document 04/04/22 13:38 MA (Rec: 04/04/22 14:31 MA [id number]) Physical Therapy Assessment Goals Four Impairment postural dysfunction contributing to persistent neck pain Short Term Goal (STG) patient to be instructed in neutral posture, correct body mechanics for usual activities and demonstrate good understanding STG Duration 04/09/22 Beauty Artist Goal (LTG) Patient to demonstrate improvement in habitual posture, verbalize and demonstrate correction of activities utilizing correct alignment and body mechanics for neck protection and health . LTG Duration 05/09/22 Three Impairment patient unable to drive due to pain and limited neck motion Beauty Artist Goal (LTG) Decrease pain and improve mobility sufficient to allow patient to return to safe driving LTG Duration 05/09/22 Two Impairment sleep interrupted by pain Short Term Goal (STG) patient to be instrsucted in correct body support and positioning for spinal health in supine and sidelying for improved sleep STG Duration 04/09/22 Beauty Artist Goal (LTG) Patient able to resume normal sleep pattern, without waking due to neck pain as is typical at this time LTG Duration 05/09/22 One Impairment neck and upper trap pain constant 04/29 Mcfp Goal (LTG) Decrease pain by at least 50% with patient able to resume prior level of function without an increase in pain LTG Duration 05/09/22 Assessment Summary Assessment Pt demonstrated better form with exercises today with less UT recruitment during extension and scap retraction. Practiced using tennis ball for STM at end of session with pt having good pain relief. Physical Therapy Plan Frequency and Duration Frequency of Treatment 2x/Week Duration of Treatment 8 weeks Plan of Care Start Date 03/10/22 Plan of Care End Date 05/09/22 Therapeutic Interventions Therapeutic Interventions Aquatic Therapy,Home Exercise Program,Manual Therapy, Neuromuscular Re-education, Patient/Caregiver Education, Self-Care/Home Management,Soft Tissue Mobilization,Taping, Therapeutic Activities, Therapeutic Exercises Modalities Cold Pack/Ice Massage Next Visit Focus/Plan Next Note Type Treatment Note Next Visit Plan Try prone exercises for scap strengthening. Continue gentle progression of ther ex with emphasis on postural correction, posterior chain strengthening. Manual therapy to improve muscle tension and pain, facilitate improved biomechanics and muscle activation.
--- NOTE | 2022-04-07 11:55 | PT.OTN ---
Current Diagnoses Other spondylosis with radiculopathy, cervical region (04/07/22) Spinal stenosis, cervical region (04/07/22) Physical Therapy Treatment Note PT-OP-A Visit Information Start: 03/08/22 16:31 Freq: Status: Active Protocol: Document 04/07/22 11:04 MA (Rec: 04/07/22 11:54 MA [id number]) Out-Patient Physical Therapy Visit Information Visit Information Visit Type Treatment Note Visit Start Time 11:05 Visit Stop Time 11:45 Total Visit Minutes 40 Visit Number 9 Number of LIFT DRIVER Visits 2 Precautions Precautions anterior cervical fusion C4-6 with metal plate and screws PT-OP-B Current Condition Start: 03/08/22 16:31 Freq: Status: Active Protocol: Document 03/15/22 11:15 SAK (Rec: 03/15/22 12:15 SAK [id number]) Current Condition History of Current Condition Onset Date 01/17/22 Current Complaints neck and upper trap pain. History of Current Condition discectomy x 2, ant fusion C45 , C56 with metal removal of bone spur. after 15 years of neck pain with radicular symtpms into right UE, with numbness thumb and first finger. At this time has pain in the back of her neck and upper traps. Pain no better in neck and upper traps. having headaches but radicular symptoms gone. Also reports burning pain lower neck. Saw doctor 2 week post op, was told no turning of head or bending . Saw PA at 6 weeks; don't twist or bend, minimize lifting. Sleeps on her side. Doesn't drive, not able to turn her head adequately to look behind. Left shoulder pain as well. No further appointment with doctor. Prior Treatments and Tests PT not helpful previously, states she was mostly just given exercises, no hands on work. Did have massage therapy which helped for a day then paoin returned. Future Testing and Treatments Planned No further return visits to doctor PT-OP-C Subjective Start: 03/08/22 16:31 Freq: Status: Active Protocol: Document 04/07/22 11:04 MA (Rec: 04/07/22 11:54 MA [id number]) OP-PT Subjective Patient Comments Patient Comments Pt has been busy and has not bought tennis balls. She is having her usual neck pain today. PT-OP-F Manual Assessment Start: 03/08/22 16:31 Freq: Status: Active Protocol: Document 03/10/22 09:49 SAK (Rec: 03/10/22 11:13 [facility] [id number]) Manual Assessments Joint Mobility Assessment Joint Mobility Assessment decreased joint mobility upper thoracic spine PT-OP-J Posture/Palpation/Skin Start: 03/08/22 16:31 Freq: Status: Active Protocol: Document 03/10/22 09:49 SAK (Rec: 03/10/22 11:13 [facility] [id number]) Posture Evaluation Position Standing Head/C-Spine Posture Forward Head T-Spine Posture Increased Kyphosis L-Spine Posture Increased Lordosis Shoulder Posture (L) Rounded,(R) Rounded Scapula Posture (L) Protracted,(R) Protracted Arm Posture (L) Internally Rotated,(R) Internally Rotated Pelvis Posture Anteriorly Tilted Palpation Assessment Location One Palpation Location c/s, upper traps Palpation Findings Soft Tissue Tightness,Muscle Guarding,Tenderness,Trigger Point PT-OP-K Range of Motion Start: 03/08/22 16:31 Freq: Status: Active Protocol: Document 03/10/22 09:49 [facility] (Rec: 03/10/22 11:13 [facility] [id number]) Cervical Spine Range of Motion Cervical Spine Active Testing Position Standing Flexion 45 Extension 10 Rotation Left 15 Rotation Right 5 Lateral Flexion Left 10 Lateral Flexion Right 10 ROM Limitations Soft Tissue Tightness,Bony Restriction,Pain Comments encouraged only very gentle movement Shoulder Goniometric Range of Motion Shoulder Left Flexion 155 Horizontal Adduction 20 Internal Rotation Behind Back (text) T12 Right Shoulder ROM WFL Yes Internal Rotation Behind Back (text) T7 Shoulder ROM Limitations Shoulder ROM Limitations Soft Tissue Tightness,Pain PT-OP-M Strength Start: 03/08/22 16:31 Freq: Status: Active Protocol: Document 03/10/22 09:49 SAK (Rec: 03/10/22 11:13 [facility] [id number]) Cervical Spine Strength Cervical Spine Manual Muscle Testing Comments no MMT due to recent surgery with high level of pain Shoulder Strength Shoulder Manual Muscle Testing riki Comments has antigravity strength within available ROM but no MMT due to recent surgery PT-OP-Q Treatments Start: 03/08/22 16:31 Freq: Status: Active Protocol: Document 04/07/22 11:04 MA (Rec: 04/07/22 11:54 MA [id number]) Cardio Equipment Recumbent Stepper (Sci-Fit) Duration (Minutes) 5 Resistance 1 Seat Position 9 Other cues for posture Gym Equipment Therapeutic Ball 55 cm Exercise Details I, T, Y Ball Size/Color red 55 cm ball Body Position Prone Reps/Duration x10 ea Therapeutic Exercises Supine Exercises pec stretch Supine Exercise Name major and minor Reps/Minutes 2x30 Prone Exercises Rows Prone Exercise Name 1. scap retraction with rows 2 . reverse fly Side bilateral Reps/Minutes x5 ea side, 10x riki Sitting Exercises Chin tucks Reps/Minutes x10 Comments practiced before prone on ball for improved CS alignment Standing Exercises doorway stretch Standing Exercise Name pec stretch Side bilateral Equipment Used doorway Reps/Minutes 2x30 Comments verbal instruction in neutral posture, decreased intensity of stretch Manual Therapy Treatment Soft Tissue Mobilization 1 Body Location cervical paraspinals, UT, LS, scalenes Mobilization Type Myofascial Release,Rolling, Strumming,Sustained Pressure Intensity/Depth Moderate Body Position Sidelying Comments also supine PT-OP-R Modalities Start: 03/08/22 16:31 Freq: Status: Active Protocol: Document 03/31/22 11:25 SAK (Rec: 03/31/22 12:08 SAK [id number]) Electric Stimulation Electric Stimulation Interferential Current (IFC) Body Location c/s, UT Duration (Minutes) 15 Intensity 11 Target/Sweep Sweep Combined With Heat/Cold Hot Pack Comments MH c/s, UT, and t/s PT-OP-T Assessment and Plan Start: 03/08/22 16:31 Freq: Status: Active Protocol: Document 04/07/22 11:04 MA (Rec: 04/07/22 11:54 MA [id number]) Physical Therapy Assessment Goals Four Impairment postural dysfunction contributing to persistent neck pain Short Term Goal (STG) patient to be instructed in neutral posture, correct body mechanics for usual activities and demonstrate good understanding STG Duration 04/09/22 Environmental Field Technician Goal (LTG) Patient to demonstrate improvement in habitual posture, verbalize and demonstrate correction of activities utilizing correct alignment and body mechanics for neck protection and health . LTG Duration 05/09/22 Three Impairment patient unable to drive due to pain and limited neck motion Environmental Field Technician Goal (LTG) Decrease pain and improve mobility sufficient to allow patient to return to safe driving LTG Duration 05/09/22 Two Impairment sleep interrupted by pain Short Term Goal (STG) patient to be instrsucted in correct body support and positioning for spinal health in supine and sidelying for improved sleep STG Duration 04/09/22 Shelter Goal (LTG) Patient able to resume normal sleep pattern, without waking due to neck pain as is typical at this time LTG Duration 05/09/22 One Impairment neck and upper trap pain constant 04/29 Environmental Field Technician Goal (LTG) Decrease pain by at least 50% with patient able to resume prior level of function without an increase in pain LTG Duration 05/09/22 Assessment Summary Assessment Pt is able to demonstrate good shoulder mechanics in prone over table so progressed to prone on exercise ball with pt requiring only minor cues for cervical positioning and occassional cues to avoid UT recruitment. She shows good understanding of HEP exercises and will continue with HEP until next appt scheduled in 3 weeks. Physical Therapy Plan Frequency and Duration Frequency of Treatment 2x/Week Duration of Treatment 8 weeks Plan of Care Start Date 03/10/22 Plan of Care End Date 05/09/22 Therapeutic Interventions Therapeutic Interventions Aquatic Therapy,Home Exercise Program,Manual Therapy, Neuromuscular Re-education, Patient/Caregiver Education, Self-Care/Home Management,Soft Tissue Mobilization,Taping, Therapeutic Activities, Therapeutic Exercises Modalities Cold Pack/Ice Massage Next Visit Focus/Plan Next Note Type Treatment Note Next Visit Plan Prone over ball: I's, T's, Y's , rows Continue gentle progression of ther ex with emphasis on postural correction, posterior chain strengthening. Manual therapy to improve muscle tension and pain, facilitate improved biomechanics and muscle activation.
--- NOTE | 2022-05-10 17:25 | PT.OTN ---
Current Diagnoses Other spondylosis with radiculopathy, cervical region (05/10/22) Spinal stenosis, cervical region (05/10/22) Physical Therapy Treatment Note PT-OP-A Visit Information Start: 03/08/22 16:31 Freq: Status: Active Protocol: Document 05/10/22 11:22 [facility] (Rec: 05/10/22 12:11 [facility] [id number]) Out-Patient Physical Therapy Visit Information Visit Information Visit Type Treatment Note Visit Start Time 11:05 Visit Stop Time 11:45 Total Visit Minutes 40 Visit Number 10 Number of SUPERVISOR ASSEMBLY STOCK Visits 2 Precautions Precautions anterior cervical fusion C4-6 with metal plate and screws PT-OP-B Current Condition Start: 03/08/22 16:31 Freq: Status: Active Protocol: Document 03/15/22 11:15 [facility] (Rec: 03/15/22 12:15 [facility] [id number]) Current Condition History of Current Condition Onset Date 01/17/22 Current Complaints neck and upper trap pain. History of Current Condition discectomy x 2, ant fusion C45 , C56 with metal removal of bone spur. after 15 years of neck pain with radicular symtpms into right UE, with numbness thumb and first finger. At this time has pain in the back of her neck and upper traps. Pain no better in neck and upper traps. having headaches but radicular symptoms gone. Also reports burning pain lower neck. Saw doctor 2 week post op, was told no turning of head or bending . Saw PA at 6 weeks; don't twist or bend, minimize lifting. Sleeps on her side. Doesn't drive, not able to turn her head adequately to look behind. Left shoulder pain as well. No further appointment with doctor. Prior Treatments and Tests PT not helpful previously, states she was mostly just given exercises, no hands on work. Did have massage therapy which helped for a day then baldevoin returned. Future Testing and Treatments Planned No further return visits to doctor PT-OP-C Subjective Start: 03/08/22 16:31 Freq: Status: Active Protocol: Document 05/10/22 11:22 [facility] (Rec: 05/10/22 12:11 [facility] [id number]) OP-PT Subjective Patient Comments Patient Comments Had to skip some appointments due to 's surgery. Had appointment with Dr. Pinedo, has appointment for July 14, will schedule for 4. Got posture book, using Theracane, fair compliance to HEP. Pain persists. Got Posture, Get It Straight book and is reading through. Tolerted prone exercises over ball ok last session but difficult to get up from floor . PT-OP-F Manual Assessment Start: 03/08/22 16:31 Freq: Status: Active Protocol: Document 03/10/22 09:49 [facility] (Rec: 03/10/22 11:13 [facility] [id number]) Manual Assessments Joint Mobility Assessment Joint Mobility Assessment decreased joint mobility upper thoracic spine PT-OP-J Posture/Palpation/Skin Start: 03/08/22 16:31 Freq: Status: Active Protocol: Document 03/10/22 09:49 [facility] (Rec: 03/10/22 11:13 [facility] [id number]) Posture Evaluation Position Standing Head/C-Spine Posture Forward Head T-Spine Posture Increased Kyphosis L-Spine Posture Increased Lordosis Shoulder Posture (L) Rounded,(R) Rounded Scapula Posture (L) Protracted,(R) Protracted Arm Posture (L) Internally Rotated,(R) Internally Rotated Pelvis Posture Anteriorly Tilted Palpation Assessment Location One Palpation Location c/s, upper traps Palpation Findings Soft Tissue Tightness,Muscle Guarding,Tenderness,Trigger Point PT-OP-K Range of Motion Start: 03/08/22 16:31 Freq: Status: Active Protocol: Document 03/10/22 09:49 [facility] (Rec: 03/10/22 11:13 [facility] [id number]) Cervical Spine Range of Motion Cervical Spine Active Testing Position Standing Flexion 45 Extension 10 Rotation Left 15 Rotation Right 5 Lateral Flexion Left 10 Lateral Flexion Right 10 ROM Limitations Soft Tissue Tightness,Bony Restriction,Pain Comments encouraged only very gentle movement Shoulder Goniometric Range of Motion Shoulder Left Flexion 155 Horizontal Adduction 20 Internal Rotation Behind Back (text) T12 Right Shoulder ROM WFL Yes Internal Rotation Behind Back (text) T7 Shoulder ROM Limitations Shoulder ROM Limitations Soft Tissue Tightness,Pain PT-OP-M Strength Start: 03/08/22 16:31 Freq: Status: Active Protocol: Document 03/10/22 09:49 [facility] (Rec: 03/10/22 11:13 [facility] [id number]) Cervical Spine Strength Cervical Spine Manual Muscle Testing Comments no MMT due to recent surgery with high level of pain Shoulder Strength Shoulder Manual Muscle Testing riki Comments has antigravity strength within available ROM but no MMT due to recent surgery PT-OP-Q Treatments Start: 03/08/22 16:31 Freq: Status: Active Protocol: Document 05/10/22 11:22 [facility] (Rec: 05/10/22 12:11 [facility] [id number]) Cardio Equipment Recumbent Stepper (Sci-Fit) Duration (Minutes) 10 Resistance 1 Seat Position 9 Other cues for posture, UT inhibition Gym Equipment Cable Column (Body Solid) scapular shrug Details verbal and tactile cues Resistance 20 Reps/Time 10x lat pull Details cues for scapular activation Resistance 20 Reps/Time 10 Therapeutic Ball 55 cm Exercise Details I, T, Y Ball Size/Color red 55 cm ball Reps/Duration x10 ea Comments ball on chair, patient body on incline over ball, cues for long spine, gentle chin tuck Therapeutic Exercises Sitting Exercises Chin tucks Reps/Minutes x10 Comments practiced before prone on ball for improved CS alignment Standing Exercises shoulder ext Resistance L2 TB Reps/Minutes x10 Comments cues for scapular activation, UT inhib row Resistance L2 Reps/Minutes x10 Comments cues for scapular activation, UT inhib Manual Therapy Treatment Soft Tissue Mobilization 1 Body Location cervical paraspinals, UT, LS, scalenes Mobilization Type Myofascial Release,Rolling, Strumming,Sustained Pressure Intensity/Depth Moderate Body Position Supine PT-OP-R Modalities Start: 03/08/22 16:31 Freq: Status: Active Protocol: Document 05/10/22 11:22 [facility] (Rec: 05/10/22 12:11 [facility] [id number]) Hot Pack/Cold Pack Treatment moist heat Location c/s, t/s Patient Position Hooklying Treatment Duration (minutes) 15 Patient Tolerance Good PT-OP-T Assessment and Plan Start: 03/08/22 16:31 Freq: Status: Active Protocol: Document 05/10/22 11:22 [facility] (Rec: 05/10/22 12:11 [facility] [id number]) Physical Therapy Assessment Goals Five Impairment neck disability index score 50 % Wood Shingle Roofer Goal (LTG) Decrease NDI score to no greater than 20% 05/10/22: 46%, min progress. LTG Duration 05/19/22 Four Impairment postural dysfunction contributing to persistent neck pain Short Term Goal (STG) patient to be instructed in neutral posture, correct body mechanics for usual activities and demonstrate good understanding 05/10/22: goal met. Patient has obtained recommended book; Posture, get it straight. STG Duration goal met Fdc Goal (LTG) Patient to demonstrate improvement in habitual posture, verbalize and demonstrate correction of activities utilizing correct alignment and body mechanics for neck protection and health . 05/10/22: goal progress LTG Duration 05/19/22 Three Impairment patient unable to drive due to pain and limited neck motion Fdc Goal (LTG) Decrease pain and improve mobility sufficient to allow patient to return to safe driving 05/10/22: goal progress, cervical rotation increased to 50 deg LTG Duration 05/19/22 Two Impairment sleep interrupted by pain Short Term Goal (STG) patient to be instrsucted in correct body support and positioning for spinal health in supine and sidelying for improved sleep 05/10/22: goal met STG Duration goal met Wood Shingle Roofer Goal (LTG) Patient able to resume normal sleep pattern, without waking due to neck pain as is typical at this time 05/10/22: minimal goal progress LTG Duration 05/19/22 One Impairment neck and upper trap pain constant 6/10 Fdc Goal (LTG) Decrease pain by at least 50% with patient able to resume prior level of function without an increase in pain 05/10/22: pain 5/10, mild goal progress. Recommended patient see Dr. Pinedo for potential dry needling; she had initial appointment and is scheduled for treatment June 2022. LTG Duration 05/19/22 Assessment Summary Assessment Patient has been highly compliant to HEP, has obtained postural book recommended by PT and demonstrates good understanding. She has also obtained a Theracane for self- massage. She has had some mild improvement in pain and function but pain persists at a 5/10 level. She has made appoitments to see Dr. Pinedo in June for a few osteopathic treatments including dry needling and OMT. We plan to see her for 3 further PT appointments after today for ther ex progression, complete patient education, and continue with manual treatments to decrease muscle tension and pain. Physical Therapy Plan Frequency and Duration Frequency of Treatment 2x/Week Duration of Treatment 2weeks Plan of Care Start Date 05/09/22 Plan of Care End Date 05/19/22 Therapeutic Interventions Therapeutic Interventions Aquatic Therapy,Home Exercise Program,Manual Therapy, Neuromuscular Re-education, Patient/Caregiver Education, Self-Care/Home Management,Soft Tissue Mobilization,Taping, Therapeutic Activities, Therapeutic Exercises Modalities Cold Pack/Ice Massage Next Visit Focus/Plan Next Note Type Treatment Note Next Visit Plan Continue gentle progression of ther ex with emphasis on postural correction, posterior chain strengthening. Manual therapy to improve muscle tension and pain, facilitate improved biomechanics and muscle activation.
--- NOTE | 2022-05-10 17:26 | PT.OPPOC ---
Physical, Occupational & Speech Therapy At [facility] Current Diagnoses Other spondylosis with radiculopathy, cervical region (05/10/22) Spinal stenosis, cervical region (05/10/22) Visit Care Team Role Provider Type Varun Jose DO Attending Provider Physician Family Provider Primary Care Provider Referring Provider Specialty: [facility] Practice Address: [address] [place] [address], [facility] Email: [email or web address] Of Care PT-OP-T Assessment and Plan Start: 03/08/22 16:31 Freq: Status: Active Protocol: Document 05/10/22 11:22 [facility] (Rec: 05/10/22 12:11 [facility] [id number]) Physical Therapy Assessment Goals Five Impairment neck disability index score 50 % Custodial Goal (LTG) Decrease NDI score to no greater than 20% 05/10/22: 46%, min progress. LTG Duration 05/19/22 Four Impairment postural dysfunction contributing to persistent neck pain Short Term Goal (STG) patient to be instructed in neutral posture, correct body mechanics for usual activities and demonstrate good understanding 05/10/22: goal met. Patient has obtained recommended book; Posture, get it straight. STG Duration goal met Landscape Technician Goal (LTG) Patient to demonstrate improvement in habitual posture, verbalize and demonstrate correction of activities utilizing correct alignment and body mechanics for neck protection and health . 05/10/22: goal progress LTG Duration 05/19/22 Three Impairment patient unable to drive due to pain and limited neck motion Custodial Goal (LTG) Decrease pain and improve mobility sufficient to allow patient to return to safe driving 05/10/22: goal progress, cervical rotation increased to 50 deg LTG Duration 05/19/22 Two Impairment sleep interrupted by pain Short Term Goal (STG) patient to be instrsucted in correct body support and positioning for spinal health in supine and sidelying for improved sleep 05/10/22: goal met STG Duration goal met Custodial Goal (LTG) Patient able to resume normal sleep pattern, without waking due to neck pain as is typical at this time 05/10/22: minimal goal progress LTG Duration 05/19/22 One Impairment neck and upper trap pain constant 6/10 Landscape Technician Goal (LTG) Decrease pain by at least 50% with patient able to resume prior level of function without an increase in pain 05/10/22: pain 5/10, mild goal progress. Recommended patient see Dr. Pinedo for potential dry needling; she had initial appointment and is scheduled for treatment June 2022. LTG Duration 05/19/22 Assessment Summary Assessment Patient has been highly compliant to HEP, has obtained postural book recommended by PT and demonstrates good understanding. She has also obtained a Theracane for self- massage. She has had some mild improvement in pain and function but pain persists at a 5/10 level. She has made appoitments to see Dr. Pinedo in June for a few osteopathic treatments including dry needling and OMT. We plan to see her for 3 further PT appointments after today for ther ex progression, complete patient education, and continue with manual treatments to decrease muscle tension and pain. Physical Therapy Plan Frequency and Duration Frequency of Treatment 2x/Week Duration of Treatment 2weeks Plan of Care Start Date 05/09/22 Plan of Care End Date 05/19/22 Therapeutic Interventions Therapeutic Interventions Aquatic Therapy,Home Exercise Program,Manual Therapy, Neuromuscular Re-education, Patient/Caregiver Education, Self-Care/Home Management,Soft Tissue Mobilization,Taping, Therapeutic Activities, Therapeutic Exercises Modalities Cold Pack/Ice Massage Next Visit Focus/Plan Next Note Type Treatment Note Next Visit Plan Continue gentle progression of ther ex with emphasis on postural correction, posterior chain strengthening. Manual therapy to improve muscle tension and pain, facilitate improved biomechanics and muscle activation. Plan of Care Dates Plan of Care Start Date 05/09/22 Plan of Care End Date 05/19/22 Electronically Signed by: Amanda Lopez, PT 05/11/22 6834 If you are in agreement with this Plan of Care, please return a signed and dated copy. I have reviewed this Plan of Care and certify that the skilled therapy services above are required to meet the patient?s needs. Physician Signature Date Printed Name and Credentials Clinical Instructor Signature Printed Name and Credentials
--- NOTE | 2022-05-12 16:39 | PT.OTN ---
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 History of Current Condition discectomy x 2, ant fusion C45 , C56 with metal removal of bone spur. after 15 years of neck pain with radicular symtpms into right UE, with numbness thumb and first finger. At this time has pain in the back of her neck and upper traps. Pain no better in neck and upper traps. having headaches but radicular symptoms gone. Also reports burning pain lower neck. Saw doctor 2 week post op, was told no turning of head or bending . Saw PA at 6 weeks; don't twist or bend, minimize lifting. Sleeps on her side. Doesn't drive, not able to turn her head adequately to look behind. Left shoulder pain as well. No further appointment with doctor. Prior Treatments and Tests PT not helpful previously, states she was mostly just given exercises, no hands on work. Did have massage therapy which helped for a day then baldevoin returned. Future Testing and Treatments Planned No further return visits to doctor PT-OP-C Subjective Start: 03/08/22 16:31 Freq: Status: Active Protocol: Document 05/12/22 08:22 [facility] (Rec: 05/12/22 08:24 [facility] [id number]) OP-PT Subjective Patient Comments Patient Comments No new c/o, sore today PT-OP-F Manual Assessment Start: 03/08/22 16:31 Freq: Status: Active Protocol: Document 03/10/22 09:49 [facility] (Rec: 03/10/22 11:13 [facility] [id number]) Manual Assessments Joint Mobility Assessment Joint Mobility Assessment decreased joint mobility upper thoracic spine PT-OP-J Posture/Palpation/Skin Start: 03/08/22 16:31 Freq: Status: Active Protocol: Document 03/10/22 09:49 [facility] (Rec: 03/10/22 11:13 [facility] [id number]) Posture Evaluation Position Standing Head/C-Spine Posture Forward Head T-Spine Posture Increased Kyphosis L-Spine Posture Increased Lordosis Shoulder Posture (L) Rounded,(R) Rounded Scapula Posture (L) Protracted,(R) Protracted Arm Posture (L) Internally Rotated,(R) Internally Rotated Pelvis Posture Anteriorly Tilted Palpation Assessment Location One Palpation Location c/s, upper traps Palpation Findings Soft Tissue Tightness,Muscle Guarding,Tenderness,Trigger Point PT-OP-K Range of Motion Start: 03/08/22 16:31 Freq: Status: Active Protocol: Document 03/10/22 09:49 [facility] (Rec: 03/10/22 11:13 [facility] [id number]) Cervical Spine Range of Motion Cervical Spine Active Testing Position Standing Flexion 45 Extension 10 Rotation Left 15 Rotation Right 5 Lateral Flexion Left 10 Lateral Flexion Right 10 ROM Limitations Soft Tissue Tightness,Bony Restriction,Pain Comments encouraged only very gentle movement Shoulder Goniometric Range of Motion Shoulder Left Flexion 155 Horizontal Adduction 20 Internal Rotation Behind Back (text) T12 Right Shoulder ROM WFL Yes Internal Rotation Behind Back (text) T7 Shoulder ROM Limitations Shoulder ROM Limitations Soft Tissue Tightness,Pain PT-OP-M Strength Start: 03/08/22 16:31 Freq: Status: Active Protocol: Document 03/10/22 09:49 [facility] (Rec: 03/10/22 11:13 [facility] [id number]) Cervical Spine Strength Cervical Spine Manual Muscle Testing Comments no MMT due to recent surgery with high level of pain Shoulder Strength Shoulder Manual Muscle Testing riki Comments has antigravity strength within available ROM but no MMT due to recent surgery PT-OP-Q Treatments Start: 03/08/22 16:31 Freq: Status: Active Protocol: Document 05/12/22 08:22 [facility] (Rec: 05/12/22 09:04 [facility] [id number]) Cardio Equipment Recumbent Stepper (Sci-Fit) Duration (Minutes) 10 Resistance 1 Seat Position 9 Other cues for posture, UT inhibition Gym Equipment Cable Column (Body Solid) scapular shrug Details verbal and tactile cues Resistance 20 Reps/Time 10x lat pull Details cues for scapular activation Resistance 20 Reps/Time 10 Therapeutic Exercises Prone Exercises I, T Reps/Minutes 10x Comments arm over side of treatment table Rows Prone Exercise Name 1. scap retraction with rows 2 . reverse fly Side bilateral Reps/Minutes x5 Sitting Exercises posterior capsule sstretch shoulders Reps/Minutes 2x30 Standing Exercises doorway stretch Standing Exercise Name pec stretch Side bilateral Equipment Used doorway Reps/Minutes 2x30 Comments verbal instruction in neutral posture, arms straight, down at 45 deg shoulder ext Resistance L2 TB Reps/Minutes x10 Comments cues for scapular activation, UT inhib row Resistance L2 Reps/Minutes x10 Comments cues for scapular activation, UT inhib Manual Therapy Treatment Soft Tissue Mobilization 1 Body Location cervical paraspinals, UT, LS, scalenes Mobilization Type Myofascial Release,Rolling, Strumming,Sustained Pressure Intensity/Depth Moderate Body Position Supine PT-OP-R Modalities Start: 03/08/22 16:31 Freq: Status: Active Protocol: Document 05/12/22 08:22 [facility] (Rec: 05/12/22 08:24 [facility] [id number]) Electric Stimulation Electric Stimulation Interferential Current (IFC) Body Location c/s Duration (Minutes) 15 Intensity 12 Target/Sweep Sweep Combined With Heat/Cold Hot Pack Hot Pack/Cold Pack Treatment moist heat Location c/s, t/s Patient Position Hooklying Treatment Duration (minutes) 15 Patient Tolerance Good PT-OP-T Assessment and Plan Start: 03/08/22 16:31 Freq: Status: Active Protocol: Document 05/12/22 08:22 [facility] (Rec: 05/12/22 08:24 [facility] [id number]) Physical Therapy Assessment Goals Five Impairment neck disability index score 50 % Correction Goal (LTG) Decrease NDI score to no greater than 20% 05/10/22: 46%, min progress. LTG Duration 05/19/22 Four Impairment postural dysfunction contributing to persistent neck pain Short Term Goal (STG) patient to be instructed in neutral posture, correct body mechanics for usual activities and demonstrate good understanding 05/10/22: goal met. Patient has obtained recommended book; Posture, get it straight. STG Duration goal met Correction Goal (LTG) Patient to demonstrate improvement in habitual posture, verbalize and demonstrate correction of activities utilizing correct alignment and body mechanics for neck protection and health . 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 Recommended patient see Dr. Pinedo for potential dry needling; she had initial appointment and is scheduled for treatment June 2022. LTG Duration 05/19/22 Assessment Summary Assessment Patient experiences some temporary relief of pain after PT but nothing long-lasting, compliant to HEP, has difficulty with postural correction but is demonstrating good effort. Physical Therapy Plan Frequency and Duration Frequency of Treatment 2x/Week Duration of Treatment 2weeks Plan of Care Start Date 05/09/22 Plan of Care End Date 05/19/22 Therapeutic Interventions Therapeutic Interventions Aquatic Therapy,Home Exercise Program,Manual Therapy, Neuromuscular Re-education, Patient/Caregiver Education, Self-Care/Home Management,Soft Tissue Mobilization,Taping, Therapeutic Activities, Therapeutic Exercises Modalities Cold Pack/Ice Massage Next Visit Focus/Plan Next Note Type Treatment Note Next Visit Plan Continue gentle progression of ther ex with emphasis on postural correction, posterior chain strengthening. Manual therapy to improve muscle tension and pain, facilitate improved biomechanics and muscle activation.
--- NOTE | 2022-05-17 17:55 | PT.OTN ---
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 History of Current Condition discectomy x 2, ant fusion C45 , C56 with metal removal of bone spur. after 15 years of neck pain with radicular symtpms into right UE, with numbness thumb and first finger. At this time has pain in the back of her neck and upper traps. Pain no better in neck and upper traps. having headaches but radicular symptoms gone. Also reports burning pain lower neck. Saw doctor 2 week post op, was told no turning of head or bending . Saw PA at 6 weeks; don't twist or bend, minimize lifting. Sleeps on her side. Doesn't drive, not able to turn her head adequately to look behind. Left shoulder pain as well. No further appointment with doctor. Prior Treatments and Tests PT not helpful previously, states she was mostly just given exercises, no hands on work. Did have massage therapy which helped for a day then deepak returned. Future Testing and Treatments Planned No further return visits to doctor PT-OP-C Subjective Start: 03/08/22 16:31 Freq: Status: Active Protocol: Document 05/17/22 11:17 [facility] (Rec: 05/17/22 12:04 [facility] [id number]) OP-PT Subjective Patient Comments Patient Comments Has had a rough few days, kinesiotape and ice/IFES not helpful. Thinks manual treatment prone not helpful either. Would like treatment in sitting, supine PT-OP-F Manual Assessment Start: 03/08/22 16:31 Freq: Status: Active Protocol: Document 03/10/22 09:49 [facility] (Rec: 03/10/22 11:13 [facility] [id number]) Manual Assessments Joint Mobility Assessment Joint Mobility Assessment decreased joint mobility upper thoracic spine PT-OP-J Posture/Palpation/Skin Start: 03/08/22 16:31 Freq: Status: Active Protocol: Document 03/10/22 09:49 [facility] (Rec: 03/10/22 11:13 [facility] [id number]) Posture Evaluation Position Standing Head/C-Spine Posture Forward Head T-Spine Posture Increased Kyphosis L-Spine Posture Increased Lordosis Shoulder Posture (L) Rounded,(R) Rounded Scapula Posture (L) Protracted,(R) Protracted Arm Posture (L) Internally Rotated,(R) Internally Rotated Pelvis Posture Anteriorly Tilted Palpation Assessment Location One Palpation Location c/s, upper traps Palpation Findings Soft Tissue Tightness,Muscle Guarding,Tenderness,Trigger Point PT-OP-K Range of Motion Start: 03/08/22 16:31 Freq: Status: Active Protocol: Document 03/10/22 09:49 [facility] (Rec: 03/10/22 11:13 [facility] [id number]) Cervical Spine Range of Motion Cervical Spine Active Testing Position Standing Flexion 45 Extension 10 Rotation Left 15 Rotation Right 5 Lateral Flexion Left 10 Lateral Flexion Right 10 ROM Limitations Soft Tissue Tightness,Bony Restriction,Pain Comments encouraged only very gentle movement Shoulder Goniometric Range of Motion Shoulder Left Flexion 155 Horizontal Adduction 20 Internal Rotation Behind Back (text) T12 Right Shoulder ROM WFL Yes Internal Rotation Behind Back (text) T7 Shoulder ROM Limitations Shoulder ROM Limitations Soft Tissue Tightness,Pain PT-OP-M Strength Start: 03/08/22 16:31 Freq: Status: Active Protocol: Document 03/10/22 09:49 [facility] (Rec: 03/10/22 11:13 [facility] [id number]) Cervical Spine Strength Cervical Spine Manual Muscle Testing Comments no MMT due to recent surgery with high level of pain Shoulder Strength Shoulder Manual Muscle Testing riki Comments has antigravity strength within available ROM but no MMT due to recent surgery PT-OP-Q Treatments Start: 03/08/22 16:31 Freq: Status: Active Protocol: Document 05/17/22 11:17 [facility] (Rec: 05/17/22 12:04 [facility] [id number]) Cardio Equipment Recumbent Stepper (Sci-Fit) Duration (Minutes) 5 Resistance 1 Seat Position 9 Other cues for posture, UT inhibition Therapeutic Exercises Supine Exercises cervical rotation Supine Exercise Name contract/relax with eyes Reps/Minutes 8 min Comments patient instruction for doing at home. Standing Exercises doorway stretch Comments reviewed Manual Therapy Treatment Soft Tissue Mobilization 1 Body Location cervical paraspinals, UT, LS, scalenes Mobilization Type Myofascial Release,Rolling, Strumming,Sustained Pressure Intensity/Depth Moderate Body Position Supine Joint Mobilizations first rib Direction inf glide Grade III Body Position Supine Reps/Duration 3 min Comments left Self-Care/Home Management Treatment Education Patient Education Home Exercise Program,Pain Management,Posture Other Education use of cervical home traction unit, given information PT-OP-R Modalities Start: 03/08/22 16:31 Freq: Status: Active Protocol: Document 05/17/22 11:17 [facility] (Rec: 05/17/22 17:55 [facility] [id number]) Spinal Traction Traction Treatment Cervical Method Static Patient Position Hooklying Force Applied (Pounds) 10 Heating Pad Applied No Traction Treatment Comment Puri home cervical traction unit. 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 LTG Duration 05/19/22 Four Impairment postural dysfunction contributing to persistent neck pain Short Term Goal (STG) patient to be instructed in neutral posture, correct body mechanics for usual activities and demonstrate good understanding 05/10/22: goal met. Patient has obtained recommended book; Posture, get it straight. STG Duration goal met Longterm Goal (LTG) Patient to demonstrate improvement in habitual posture, verbalize and demonstrate correction of activities utilizing correct alignment and body mechanics for neck protection and health . 05/10/22: goal progress LTG Duration 05/19/22 Three Impairment patient unable to drive due to pain and limited neck motion Longterm Goal (LTG) Decrease pain and improve mobility sufficient to allow patient to return to safe driving 05/10/22: goal progress, cervical rotation increased to 50 deg LTG Duration 05/19/22 Two Impairment sleep interrupted by pain Short Term Goal (STG) patient to be instrsucted in correct body support and positioning for spinal health in supine and sidelying for improved sleep 05/10/22: goal met STG Duration goal met Early Childhood Director Goal (LTG) Patient able to resume normal sleep pattern, without waking due to neck pain as is typical at this time 05/10/22: minimal goal progress LTG Duration 05/19/22 One Impairment neck and upper trap pain constant 6 Longterm Goal (LTG) Decrease pain by at least 50% with patient able to resume prior level of function without an increase in pain 05/10/22: pain 5/10, mild goal progress. Recommended patient see Dr. Pinedo for potential dry needling; she had initial appointment and is scheduled for treatment June 2022. LTG Duration 05/19/22 Assessment Summary Assessment trial Jaxson home traction unit at 10 lbs x 5 min. Physical Therapy Plan Frequency and Duration Frequency of Treatment 2x/Week Duration of Treatment 2weeks Plan of Care Start Date 05/09/22 Plan of Care End Date 05/19/22 Therapeutic Interventions Therapeutic Interventions Aquatic Therapy,Home Exercise Program,Manual Therapy, Neuromuscular Re-education, Patient/Caregiver Education, Self-Care/Home Management,Soft Tissue Mobilization,Taping, Therapeutic Activities, Therapeutic Exercises Modalities Cold Pack/Ice Massage
--- NOTE | 2022-05-19 11:42 | PT.OTN ---
Current Diagnoses Other spondylosis with radiculopathy, cervical region (05/19/22) Spinal stenosis, cervical region (05/19/22) Physical Therapy Treatment Note PT-OP-A Visit Information Start: 03/08/22 16:31 Freq: Status: Active Protocol: Document 05/19/22 10:33 [facility] (Rec: 05/19/22 11:42 [facility] [id number]) Out-Patient Physical Therapy Visit Information Visit Information Visit Type Treatment Note Visit Start Time 10:31 Visit Stop Time 11:19 Total Visit Minutes 48 Visit Number 12 Number of MAGNETO ELECTRICIAN Visits 0 Evaluation Information Evaluation Date 03/10/22 Precautions Precautions anterior cervical fusion C4-6 with metal plate and screws PT-OP-B Current Condition Start: 03/08/22 16:31 Freq: Status: Active Protocol: Document 03/15/22 11:15 [facility] (Rec: 03/15/22 12:15 [facility] [id number]) Current Condition History of Current Condition Onset Date 01/17/22 Current Complaints neck and upper trap pain. History of Current Condition discectomy x 2, ant fusion C45 , C56 with metal removal of bone spur. after 15 years of neck pain with radicular symtpms into right UE, with numbness thumb and first finger. At this time has pain in the back of her neck and upper traps. Pain no better in neck and upper traps. having headaches but radicular symptoms gone. Also reports burning pain lower neck. Saw doctor 2 week post op, was told no turning of head or bending . Saw PA at 6 weeks; don't twist or bend, minimize lifting. Sleeps on her side. Doesn't drive, not able to turn her head adequately to look behind. Left shoulder pain as well. No further appointment with doctor. Prior Treatments and Tests PT not helpful previously, states she was mostly just given exercises, no hands on work. Did have massage therapy which helped for a day then deepak returned. Future Testing and Treatments Planned No further return visits to doctor PT-OP-C Subjective Start: 03/08/22 16:31 Freq: Status: Active Protocol: Document 05/19/22 10:33 [facility] (Rec: 05/19/22 11:42 [facility] [id number]) OP-PT Subjective Patient Comments Patient Comments Better than after last session , but feels so tight. Agreeable to heat first, CTX, then manual treatment today. Today last scheduled treatment , then will see Dr. Pinedo next month PT-OP-F Manual Assessment Start: 03/08/22 16:31 Freq: Status: Active Protocol: Document 03/10/22 09:49 [facility] (Rec: 03/10/22 11:13 [facility] [id number]) Manual Assessments Joint Mobility Assessment Joint Mobility Assessment decreased joint mobility upper thoracic spine PT-OP-J Posture/Palpation/Skin Start: 03/08/22 16:31 Freq: Status: Active Protocol: Document 03/10/22 09:49 [facility] (Rec: 03/10/22 11:13 [facility] [id number]) Posture Evaluation Position Standing Head/C-Spine Posture Forward Head T-Spine Posture Increased Kyphosis L-Spine Posture Increased Lordosis Shoulder Posture (L) Rounded,(R) Rounded Scapula Posture (L) Protracted,(R) Protracted Arm Posture (L) Internally Rotated,(R) Internally Rotated Pelvis Posture Anteriorly Tilted Palpation Assessment Location One Palpation Location c/s, upper traps Palpation Findings Soft Tissue Tightness,Muscle Guarding,Tenderness,Trigger Point PT-OP-K Range of Motion Start: 03/08/22 16:31 Freq: Status: Active Protocol: Document 03/10/22 09:49 [facility] (Rec: 03/10/22 11:13 [facility] [id number]) Cervical Spine Range of Motion Cervical Spine Active Testing Position Standing Flexion 45 Extension 10 Rotation Left 15 Rotation Right 5 Lateral Flexion Left 10 Lateral Flexion Right 10 ROM Limitations Soft Tissue Tightness,Bony Restriction,Pain Comments encouraged only very gentle movement Shoulder Goniometric Range of Motion Shoulder Left Flexion 155 Horizontal Adduction 20 Internal Rotation Behind Back (text) T12 Right Shoulder ROM WFL Yes Internal Rotation Behind Back (text) T7 Shoulder ROM Limitations Shoulder ROM Limitations Soft Tissue Tightness,Pain PT-OP-M Strength Start: 03/08/22 16:31 Freq: Status: Active Protocol: Document 03/10/22 09:49 [facility] (Rec: 03/10/22 11:13 [facility] [id number]) Cervical Spine Strength Cervical Spine Manual Muscle Testing Comments no MMT due to recent surgery with high level of pain Shoulder Strength Shoulder Manual Muscle Testing riki Comments has antigravity strength within available ROM but no MMT due to recent surgery PT-OP-Q Treatments Start: 03/08/22 16:31 Freq: Status: Active Protocol: Document 05/19/22 10:33 [facility] (Rec: 05/19/22 11:42 [facility] [id number]) Therapeutic Exercises Supine Exercises chin tuck Reps/Minutes 5x cervical rotation Supine Exercise Name contract/relax with eyes Reps/Minutes 8 min Comments patient instruction for doing at home. pec stretch Supine Exercise Name major and minor Reps/Minutes 2x30 Manual Therapy Treatment Soft Tissue Mobilization SCM, scar, ant scales Mobilization Type Myofascial Release Intensity/Depth Moderate Body Position Hooklying 1 Body Location cervical paraspinals, UT, LS, scalenes Mobilization Type Myofascial Release,Rolling, Strumming,Sustained Pressure Intensity/Depth Moderate Body Position Supine Joint Mobilizations first rib Direction inf glide Grade III Body Position Supine Reps/Duration 3 min Comments left Self-Care/Home Management Treatment Education Other Education use of tennis balls for suboccipital release. updated written HEP with T and I, open book. PT-OP-R Modalities Start: 03/08/22 16:31 Freq: Status: Active Protocol: Document 05/19/22 10:33 [facility] (Rec: 05/19/22 11:42 [facility] [id number]) Hot Pack/Cold Pack Treatment moist heat Location c/s, t/s Patient Position Hooklying Treatment Duration (minutes) 15 Patient Tolerance Good Comments prior to CTX Spinal Traction Traction Treatment Cervical Method Static Patient Position Hooklying Force Applied (Pounds) 10 Heating Pad Applied Yes: prior to treatment. Traction Treatment Comment Puri apison cervical traction unit. PT-OP-T Assessment and Plan Start: 03/08/22 16:31 Freq: Status: Active Protocol: Document 05/19/22 10:33 [facility] (Rec: 05/19/22 11:42 [facility] [id number]) Physical Therapy Assessment Goals Five Impairment neck disability index score 50 % Windscreen Fitter Goal (LTG) Decrease NDI score to no greater than 20% 05/10/22: 46%, min progress. LTG Duration 05/19/22 Four Impairment postural dysfunction contributing to persistent neck pain Short Term Goal (STG) patient to be instructed in neutral posture, correct body mechanics for usual activities and demonstrate good understanding 05/10/22: goal met. Patient has obtained recommended book; Posture, get it straight. STG Duration goal met Alf Goal (LTG) Patient to demonstrate improvement in habitual posture, verbalize and demonstrate correction of activities utilizing correct alignment and body mechanics for neck protection and health . 6/21/22: goal progress LTG Duration 05/19/22 Three Impairment patient unable to drive due to pain and limited neck motion Windscreen Fitter Goal (LTG) Decrease pain and improve mobility sufficient to allow patient to return to safe driving 05/10/22: goal progress, cervical rotation increased to 50 deg LTG Duration 05/19/22 Two Impairment sleep interrupted by pain Short Term Goal (STG) patient to be instrsucted in correct body support and positioning for spinal health in supine and sidelying for improved sleep 05/10/22: goal met STG Duration goal met Alf Goal (LTG) Patient able to resume normal sleep pattern, without waking due to neck pain as is typical at this time 05/10/22: minimal goal progress LTG Duration 05/19/22 One Impairment neck and upper trap pain constant 6/10 Windscreen Fitter Goal (LTG) Decrease pain by at least 50% with patient able to resume prior level of function without an increase in pain 05/10/22: pain 5/10, mild goal progress. Recommended patient see Dr. Pinedo for potential dry needling; she had initial appointment and is scheduled for treatment June 2022. LTG Duration 05/19/22 Assessment Summary Assessment Better tolerance to last session, trial MH prior to CTX and patient has information on home unit if feels helpful. Updated written HEP, reviewed eye exercise for c/s rotation and issued picture of open book ex. Patient demonstrates good understanding of all and is highly compliant to HEP despite only mild pain relief. Will see Dr. Pinedo next month for dry needling and is feel that will be very beneficial due to persistent trigger points UT, LS, rhomboids Physical Therapy Plan Discharge Physical Therapy Discharge Reasons Plateau in Progress Discharge Comments Patient to see Dr. Pinedo for potential dry needling.
== END ==
LOC: PHYS 03-10 09:23
PROVIDERS: Family Provider Family Medicine; PCP Family Medicine; Referring Provider Family Medicine; Visit Provider Family Medicine
DX: M48.02 Spinal stenosis, cervical region (principal); M47.22 Other spondylosis with radiculopathy, cervical region
CPT/HCPCS: 97012; 97014; 97110; 97140; 97162; 97535; G0283

== ENCOUNTER → 2023-07-05 07:25 | Outpatient (CLI) | payer OTHER, SELFPAY ==
[2022-03-28 11:10] VITALS: BMI 26.9
[2023-07-05 08:21] LABS: Alanine Aminotransferase 31 IU/L (<35); Albumin 4.1 g/dL (3.5-5.0); Albumin Globulin Ratio 1.6 (1.0-2.8); Alkaline Phosphatase 52 U/L (38-126); Aspartate Aminotransferase 36 IU/L (14-36); BUN Creatinine Ratio 20.6 (6-22); Bilirubin Total 0.7 mg/dL (0.2-1.3); Blood Urea Nitrogen 13 mg/dL (7-17); Calcium 9.5 mg/dL (8.4-10.2); Carbon Dioxide 27 mmol/L (22-32); Chloride 101 mmol/L (98-107); Cholesterol 211 mg/dL (140-199); Estimated Glomerular Filt Rate > 60 mL/min (>60); Globulin 2.6 g/dL (1.7-4.1); Glucose 115 mg/dL (80-110); HDL Cholesterol 33 mg/dL (40-60); HEMOLYSIS 27 (0-50); LDL Cholesterol Calculated 101 mg/dL (<100); Potassium 3.8 mmol/L (3.4-5.1); Sodium 137 mmol/L (137-145); Total Protein 6.7 g/dL (6.3-8.2); Triglycerides 385 mg/dL (35-150)
== END ==
PROVIDERS: Family Provider Family Medicine; PCP Family Medicine; Referring Provider Family Medicine; Visit Provider Family Medicine
DX: I10 Essential (primary) hypertension (principal)
CPT/HCPCS: 36415; 80053; 80061

== ENCOUNTER → 2023-07-10 14:08 | Outpatient (CLI) | payer OTHER, SELFPAY ==
[2022-03-28 11:10] VITALS: BMI 26.9
--- NOTE | 2023-07-10 14:25 | DI.MG.S_ITS ---
BILATERAL DIGITAL SCREENING MAMMOGRAM 3D/2D WITH CAD: 07/10/2023 CLINICAL: Routine screening. Comparison is made to exams dated: 07/07/2022 mammogram, 06/18/2021 mammogram, 04/29/2019 mammogram, 04/19/2018 mammogram, and 04/10/2017 mammogram - [facility]. There are scattered areas of fibroglandular density in both breasts (category b / 25%-50% glandular tissue). Current study was also evaluated with a Computer Aided Detection (CAD) system. There are benign diffuse calcifications in the right breast. There also are benign vascular calcifications in the left breast. No significant masses, calcifications, or other findings are seen in either breast. There has been no significant interval change. IMPRESSION: BENIGN There is no mammographic evidence of malignancy. A 1 year screening mammogram is recommended. Based on the Tyrer Cuzick model (a risk assessment model) the patient's lifetime risk is 3.6% and her 10 year risk is 3.2%. According to the ACR, ACS, and NCCN guidelines, an annual breast MRI exam along with mammogram is recommended if the patient's lifetime risk is 20% or greater. This exam was interpreted at Station ID: [id number]. NOTE: For mammograms, a report in lay terms will be sent to the patient. Approximately 15% of breast malignancies will not be visualized mammographically. In the management of a palpable breast mass, a negative mammogram must not discourage biopsy of a clinically suspicious lesion. Electronically Signed By: Bal cisneros/mary:07/11/2023 16:02:41 letter sent: Normal Exam ACR BI-RADS Category 2: Benign Finding(s) 3342F
== END ==
PROVIDERS: Family Provider Family Medicine; PCP Family Medicine; Referring Provider Family Medicine; Visit Provider Family Medicine
DX: Z12.31 Encounter for screening mammogram for malignant neoplasm of breast (principal)
CPT/HCPCS: 77063; 77067

== ENCOUNTER → 2023-09-27 08:05 | Outpatient (CLI) | payer OTHER, SELFPAY ==
[2022-03-28 11:10] VITALS: BMI 26.9
[2023-09-27 10:09] LABS: Thyroid Stimulating Hormone 1.77 uIU/mL (0.47-4.68)
== END ==
PROVIDERS: Family Provider Family Medicine; PCP Family Medicine; Referring Provider Family Medicine; Visit Provider Family Medicine
DX: E03.9 Hypothyroidism, unspecified (principal); I10 Essential (primary) hypertension
CPT/HCPCS: 36415; 84439; 84443

== ENCOUNTER → 2023-10-09 07:55 | Outpatient (CLI) | payer OTHER, SELFPAY ==
[2022-03-28 11:10] VITALS: BMI 26.9
[2023-10-09 09:59] LABS: Cholesterol 241 mg/dL (140-199); HDL Cholesterol 46 mg/dL (40-60); LDL Cholesterol Calculated 158 mg/dL (<100); Triglycerides 186 mg/dL (35-150)
== END ==
PROVIDERS: Family Provider Family Medicine; PCP Family Medicine; Referring Provider Internal Medicine Cardiovascular Disease; Visit Provider Internal Medicine Cardiovascular Disease
DX: E78.5 Hyperlipidemia, unspecified (principal)
CPT/HCPCS: 36415; 80061

== ENCOUNTER → 2024-01-05 07:34 | Outpatient (CLI) | payer OTHER, SELFPAY ==
[2022-03-28 11:10] VITALS: BMI 26.9
[2024-01-05 08:22] LABS: Add Manual Diff / Slide Review NO; Basophils Absolute Auto 0 /uL (0-100); Basophils Percent Auto 0.6 % (0-2); Eosinophils Absolute Auto 200 /uL (0-450); Eosinophils Percent Auto 2.3 % (2-4); Hematocrit 42.7 % (36-46); Hemoglobin 14.3 g/dL (12.0-16.0); Lymphocytes Absolute Auto 2400 /uL (1100-4500); Lymphocytes Percent Auto 32.4 % (25-40); Mean Corpuscular HGB Conc 33.5 % (30-36); Mean Corpuscular Volume 89.4 fL (80-100); Monocytes Absolute Auto 500 /uL (0-900); Monocytes Percent Auto 6.9 % (3-14); Neutrophils Absolute Auto 4300 /uL (1500-7000); Neutrophils Percent Auto 57.8 % (50-75); Platelet Count 294 X10^3/uL (150-400); Red Blood Cell Count 4.77 X10^6/uL (4.0-5.2); Red Cell Distribution Width 12.7 % (11.6-14.8); White Blood Cell Count 7.4 X10^3/uL (4.5-11.0)
[2024-01-05 09:02] LABS: Alanine Aminotransferase 31 IU/L (<35); Albumin 4.5 g/dL (3.5-5.0); Albumin Globulin Ratio 1.6 (1.0-2.8); Alkaline Phosphatase 54 U/L (38-126); Aspartate Aminotransferase 37 IU/L (14-36); BUN Creatinine Ratio 29.2 (6-22); Bilirubin Total 0.7 mg/dL (0.2-1.3); Blood Urea Nitrogen 21 mg/dL (7-17); Calcium 10.1 mg/dL (8.4-10.2); Carbon Dioxide 25 mmol/L (22-32); Chloride 103 mmol/L (98-107); Cholesterol 216 mg/dL (140-199); Estimated Glomerular Filt Rate > 60 mL/min (>60); Globulin 2.8 g/dL (1.7-4.1); Glucose 125 mg/dL (80-110); HDL Cholesterol 40 mg/dL (40-60); HEMOLYSIS < 15 (0-50); LDL Cholesterol Calculated 139 mg/dL (<100); Potassium 4.1 mmol/L (3.4-5.1); Sodium 140 mmol/L (137-145); Total Protein 7.3 g/dL (6.3-8.2); Triglycerides 184 mg/dL (35-150)
[2024-01-05 09:27] LABS: TSH w/ Reflex to FT4 1.72 uIU/mL (0.47-4.68)
== END ==
PROVIDERS: Family Provider Family Medicine; PCP Family Medicine; Referring Provider Family Medicine; Visit Provider Family Medicine
DX: E03.9 Hypothyroidism, unspecified (principal); E11.9 Type 2 diabetes mellitus without complications; E78.2 Mixed hyperlipidemia; I10 Essential (primary) hypertension; Z79.899 Other long term (current) drug therapy
CPT/HCPCS: 36415; 80053; 80061; 83036; 84443; 85025

== ENCOUNTER → 2024-02-02 | Outpatient (CLI) | payer OTHER, SELFPAY ==
[2022-03-28 11:10] VITALS: BMI 26.9
--- NOTE | 2024-02-02 10:22 | DI.DEXA.S_ITS ---
Bone Density Report Name: MAKSIM NGUYEN Age: 73 Sex: Female Ethnicity: White Date of : 1950 Indication: osteopenia; Referring Provider: DAVE HADDAD Study: Bone densitometry was performed. Exam Date: February 02, 2024 Accession number: [id number] Bone Density: Region BMD T-score Z-score Classification AP Spine(L1-L4) 1.071 0.2 2.6 Normal Femoral Neck (Left) 0.658 -1.7 0.3 Osteopenia Total Hip (Left) 0.735 -1.7 0.1 Osteopenia Femoral Neck (Right) 0.643 -1.9 0.2 Osteopenia Total Hip (Right) 0.763 -1.5 0.3 Osteopenia Total Hip Mean 0.749 -1.6 0.2 Osteopenia World Health Organization criteria for BMD impression classify patients as: Normal (T-score at or above -1.0), Osteopenia (T-score between -1.0 and -2.5), or Osteoporosis (T-score at or below -2.5). 10-year Fracture Risk(1): Major Osteoporotic Fracture 12% Hip Fracture 2.8% Reported Risk Factors: [place] (), Neck BMD=0.643, BMI=26.6 (1) FRAX(R) Version 3.08. Fracture probability calculated for an untreated patient. Fracture probability may be lower if the patient has received treatment. Previous Exams: -- Region Exam Age BMD T-score BMD Change BMD Change Date g/cm2 vs Baseline vs Previous -- AP Spine (L1-L4) 02/02/2024 73 1.071 0.2 0.073 (7.3%)# 0.017 (1.6%)# 06/06/2019 68 1.054 0.1 0.056 (5.6%)* 0.075 (7.7%)* 05/15/2017 66 0.979 -0.6 -0.019 (-1.9%) -0.019 (-1.9%) 03/31/2015 64 0.998 -0.4 Total Hip(Left) 02/02/2024 73 0.735 -1.7 0.011 (1.5%)# -0.029 (-3.8%)# 06/06/2019 68 0.764 -1.5 0.040 (5.5%)* 0.027 (3.6%) 05/15/2017 66 0.737 -1.7 0.013 (1.8%) 0.013 (1.8%) 03/31/2015 64 0.724 -1.8 Total Hip(Right) 02/02/2024 73 0.763 -1.5 0.026 (3.6%)# 0.015 (1.9%)# 06/06/2019 68 0.748 -1.6 0.012 (1.6%) 0.066 (9.6%)* 05/15/2017 66 0.682 -2.1 -0.054 (-7.3%)* -0.054 (-7.3%)* 03/31/2015 64 0.736 -1.7 -- *Denotes significance at 95% confidence level, LSC for AP Spine = 0.022 g/cm2, LSC for Total Hip = 0.027 g/cm2 # Denotes dissimilar scan types or analysis methods Impression: The patient has low bone mass, based on the Right Femoral Neck T-score. The patient has an estimated ten-year risk of hip fracture of 2.8% and an estimated ten-year risk of major fracture of 12%, based on the WHO FRAX algorithm. No significant bone loss was observed. Discussion: BONE DENSITY IS LOW AT ONE OR MORE SKELETAL SITES. This patient's lowest T-score is low at one or more skeletal sites. It meets the World Health Organization's (WHO) criteria for ?low bone mass? (T-score between -1.0 and -2.5). The patient's 10-year risk of fracture as calculated by FRAX is less than the threshold where pharmacological therapy is recommended by the National Osteoporosis Foundation (NOF). However, all treatment decisions require clinical judgment and consideration of individual patient factors, including patient preferences, comorbidities, previous drug use, risk factors not captured in the FRAX model (e.g., frailty, falls, vitamin D deficiency, increased bone turnover, interval significant decline in bone density) and possible under or overestimation of fracture risk by FRAX. The patient should follow a healthful lifestyle (good nutrition with adequate calcium and vitamin D, and appropriate weight-bearing exercise). Follow-Up: Consider repeating this study in 2 to 3 years to reassess this patient's status, or sooner if there is some new clinical indication. Reported by: JUANA THOMASON M.D. on 02/02/2024 10:34:00 AM.
== END ==
PROVIDERS: Family Provider Family Medicine; PCP Family Medicine; Referring Provider Family Medicine; Visit Provider Family Medicine
DX: M85.89 Other specified disorders of bone density and structure, multiple sites (principal)
CPT/HCPCS: 77080

== ENCOUNTER → 2024-07-31 08:11 | Outpatient (CLI) | payer OTHER, SELFPAY ==
[2022-03-28 11:10] VITALS: BMI 26.9
--- NOTE | 2024-07-31 08:12 | DI.MG.S_ITS ---
BILATERAL DIGITAL SCREENING MAMMOGRAM 3D/2D WITH CAD: 07/31/2024 CLINICAL: Routine screening. Comparison is made to exams dated: 07/10/2023 mammogram, 07/07/2022 mammogram, 06/18/2021 mammogram, 06/17/2020 mammogram, and 04/29/2019 mammogram - [facility]. There are scattered areas of fibroglandular density (category b / 25%-50% glandular tissue). Current study was also evaluated with a Computer Aided Detection (CAD) system. There are benign diffuse calcifications in the right breast. There also are benign vascular calcifications in the left breast. No significant masses, calcifications, or other findings are seen in either breast. There has been no significant interval change. IMPRESSION: BENIGN There is no mammographic evidence of malignancy. A 1 year screening mammogram is recommended. Based on the Tyrer Cuzick model (a risk assessment model) the patient's lifetime risk is 3.3% and her 10 year risk is 3.3%. According to the ACR, ACS, and NCCN guidelines, an annual breast MRI exam along with mammogram is recommended if the patient's lifetime risk is 20% or greater. This exam was interpreted at Station ID: [id number]. NOTE: For mammograms, a report in lay terms will be sent to the patient. Approximately 15% of breast malignancies will not be visualized mammographically. In the management of a palpable breast mass, a negative mammogram must not discourage biopsy of a clinically suspicious lesion. Electronically Signed By: Elida Cheek M.D., Ph.D. ambrose/mary:07/31/2024 10:07:27 letter sent: Normal Exam ACR BI-RADS Category 2: Benign 3342F
== END ==
LOC: MAMMO 08:11
PROVIDERS: Family Provider Family Medicine; PCP Family Medicine; Referring Provider Family Medicine; Visit Provider Family Medicine
DX: Z12.31 Encounter for screening mammogram for malignant neoplasm of breast (principal)
CPT/HCPCS: 77063; 77067

== ENCOUNTER → 2024-08-22 07:39 | Outpatient (CLI) | payer OTHER, SELFPAY ==
[2022-03-28 11:10] VITALS: BMI 26.9
[2024-08-22 08:47] LABS: Alanine Aminotransferase 30 IU/L (<35); Albumin 4.3 g/dL (3.5-5.0); Albumin Globulin Ratio 1.8 (1.0-2.8); Alkaline Phosphatase 64 U/L (38-126); Aspartate Aminotransferase 35 IU/L (14-36); BUN Creatinine Ratio 25.3 (6-22); Bilirubin Total 0.7 mg/dL (0.2-1.3); Blood Urea Nitrogen 19 mg/dL (7-17); Calcium 10.2 mg/dL (8.4-10.2); Carbon Dioxide 25 mmol/L (22-32); Chloride 102 mmol/L (98-107); Cholesterol 213 mg/dL (140-199); Estimated Glomerular Filt Rate > 60 mL/min (>60); Globulin 2.4 g/dL (1.7-4.1); Glucose 128 mg/dL (80-110); HDL Cholesterol 41 mg/dL (40-60); HEMOLYSIS < 15 (0-50); LDL Cholesterol Calculated 135 mg/dL (<100); Sodium 136 mmol/L (137-145); Total Protein 6.7 g/dL (6.3-8.2); Triglycerides 187 mg/dL (35-150)
[2024-08-22 09:02] LABS: Free T4, Direct Thyroxine 1.66 ng/dL (0.78-2.19)
[2024-08-22 09:16] LABS: Thyroid Stimulating Hormone 1.32 uIU/mL (0.47-4.68)
== END ==
PROVIDERS: Family Provider Family Medicine; PCP Family Medicine; Referring Provider Family Medicine; Visit Provider Family Medicine
DX: E11.9 Type 2 diabetes mellitus without complications (principal); E03.9 Hypothyroidism, unspecified; I10 Essential (primary) hypertension; E78.2 Mixed hyperlipidemia
CPT/HCPCS: 36415; 80053; 80061; 83036; 84439; 84443

== ENCOUNTER → 2024-10-23 07:33 | Outpatient (CLI) | payer OTHER, SELFPAY ==
[2022-03-28 11:10] VITALS: BMI 26.9
[2024-10-23 08:52] LABS: Alanine Aminotransferase 36 IU/L (<35); Albumin 4.3 g/dL (3.5-5.0); Albumin Globulin Ratio 1.9 (1.0-2.8); Alkaline Phosphatase 64 U/L (38-126); Aspartate Aminotransferase 39 IU/L (14-36); BUN Creatinine Ratio 23.6 (6-22); Bilirubin Total 0.6 mg/dL (0.2-1.3); Blood Urea Nitrogen 17 mg/dL (7-17); Carbon Dioxide 28 mmol/L (22-32); Chloride 103 mmol/L (98-107); Cholesterol 201 mg/dL (140-199); Estimated Glomerular Filt Rate > 60 mL/min (>60); Globulin 2.3 g/dL (1.7-4.1); Glucose 125 mg/dL (80-110); HDL Cholesterol 40 mg/dL (40-60); HEMOLYSIS < 15 (0-50); LDL Cholesterol Calculated 129 mg/dL (<100); Potassium 4.1 mmol/L (3.4-5.1); Sodium 138 mmol/L (137-145); Total Protein 6.6 g/dL (6.3-8.2); Triglycerides 160 mg/dL (35-150)
== END ==
PROVIDERS: Family Provider Family Medicine; PCP Family Medicine; Referring Provider Internal Medicine Cardiovascular Disease; Visit Provider Internal Medicine Cardiovascular Disease
DX: E78.5 Hyperlipidemia, unspecified (principal)
CPT/HCPCS: 36415; 80053; 80061

== ENCOUNTER → 2025-01-17 07:34 | Outpatient (CLI) | payer OTHER, SELFPAY ==
[2022-03-28 11:10] VITALS: BMI 26.9
== END ==
LOC: LAB 07:34
PROVIDERS: Family Provider Family Medicine; PCP Family Medicine; Referring Provider Nurse Practitioner; Visit Provider Nurse Practitioner
DX: E78.5 Hyperlipidemia, unspecified (principal)
CPT/HCPCS: 36415; 80061; 83704

== ENCOUNTER → 2025-08-12 07:59 | Outpatient (CLI) | payer OTHER, SELFPAY ==
[2022-03-28 11:10] VITALS: BMI 26.9
--- NOTE | 2025-08-12 08:00 | DI.MG.S_ITS ---
MM screening mammo BI: 08/12/2025. BI-RADS: 2 CLINICAL: 75-year old female for bilateral screening mammogram. Tyrer-Cuzick lifetime risk of 2.4%. No personal or first-degree family history of breast cancer. PRIOR EXAMS 07/31/2024, 07/10/2023, 07/07/2022, 06/18/2021. MAMMOGRAPHY TECHNIQUE: 2D and 3D (tomosynthesis) digital mammographic views obtained, with additional images as needed for full coverage. Current study was also evaluated with a Computer Aided Detection (CAD) system. DENSITY B. There are scattered areas of fibroglandular density. MAMMOGRAPHY FINDINGS Bilateral: Benign-appearing calcifications noted. There are no suspicious masses, calcifications, or other findings in the breast. IMPRESSION: * No evidence of malignancy with benign findings. RECOMMENDATIONS Bilateral * Annual screening mammography. OVERALL ASSESSMENT CATEGORY BI-RADS-2: Benign. The [employer] recommends annual screening mammography beginning at age 40 for women with average risk of breast cancer. ELECTRONICALLY SIGNED: Morenita Lockhart M.D. on 08/12/2025 at 08:50:11 AM PT Interpreting Station ID: [id number]
== END ==
LOC: MAMMO 07:59
PROVIDERS: PCP Family Medicine; Referring Provider Family Medicine; Visit Provider Family Medicine
DX: Z12.31 Encounter for screening mammogram for malignant neoplasm of breast (principal)
CPT/HCPCS: 77063; 77067

== ENCOUNTER → 2025-08-15 07:40 | Outpatient (CLI) | payer OTHER, SELFPAY ==
[2022-03-28 11:10] VITALS: BMI 26.9
[2025-08-15 08:47] LABS: Alanine Aminotransferase 30 IU/L (<35); Albumin 4.5 g/dL (3.5-5.0); Albumin Globulin Ratio 1.7 (1.0-2.8); Alkaline Phosphatase 63 U/L (38-126); Blood Urea Nitrogen 18 mg/dL (7-17); Calcium 10.1 mg/dL (8.4-10.2); Carbon Dioxide 27 mmol/L (22-32); Chloride 100 mmol/L (98-107); Cholesterol 203 mg/dL (140-199); Estimated Glomerular Filt Rate > 60 mL/min (>60); Globulin 2.6 g/dL (1.7-4.1); Glucose 139 mg/dL (70-99); HDL Cholesterol 42 mg/dL (40-60); HEMOLYSIS < 15 (0-50); Sodium 135 mmol/L (137-145); Total Protein 7.1 g/dL (6.3-8.2); Triglycerides 183 mg/dL (35-150)
[2025-08-15 08:59] LABS: Potassium 4.0 mmol/L (3.4-5.1)
== END ==
LOC: LAB 07:42
PROVIDERS: PCP Family Medicine; Referring Provider Nurse Practitioner; Visit Provider Nurse Practitioner
DX: E78.5 Hyperlipidemia, unspecified (principal); I10 Essential (primary) hypertension
CPT/HCPCS: 36415; 80053; 80061